=== PATIENT | female | born 2000 | race Caucasian/White ===

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

== ENCOUNTER 2022-09-09 16:07 | Observation (INO) ==
[2022-09-09 17:02] LABS: Basophils # (auto) 0.04 K/uL (0-0.2); Basophils % (auto) 0.5 %; Eosinophils # (auto) 0.22 K/uL (0-0.50); Eosinophils % (auto) 2.8 %; Hematocrit (blood only) 41.1 % (37.0-47.0); Hemoglobin 14.2 g/dl (12.0-16.0); Immature Granulocytes # (auto) 0.04 K/uL (0.01-0.20); Immature Granulocytes % (auto) 0.5 %; Lymphocytes # (auto) 2.03 K/uL (1.2-3.4); Lymphocytes % (auto) 25.8 %; Mean Corpuscular Hemoglobin 32.3 pg (25.0-34.0); Mean Corpuscular Hgb Conc 34.5 g/dL (32.0-36.0); Mean Corpuscular Volume 93.4 fL (80.0-100.0); Mean Platelet Volume 11.3 fL (9.4-12.4); Monocytes # (auto) 0.53 K/uL (0.11-0.59); Monocytes % (auto) 6.7 %; Neutrophils # (auto) 5.01 K/uL (1.40-6.50); Neutrophils % (auto) 63.7 %; Platelet Count 244 K/uL (130-400); RDW Coefficient of Variation 12.1 % (11.5-14.5); RDW Standard Deviation 41.8 fL (36.4-46.3); White Blood Count 7.87 K/ul (4.8-10.8)
--- NOTE | 2022-09-09 17:04 | Emergency Department Note ---
History of Present Illness General Chief complaint: Mental Health Evaluation Stated complaint: FEELS IN RUT,SUICIDAL Time Seen by Provider: 09/09/22 16:14 History of Present Illness Provider complaint: Mental health evaluation 22-year-old female presents emergency department for mental health evaluation. Patient reports for the last 3 days she has been having increased feelings of depressions with plans to kill herself via overdose. Patient states "I feel like I am failing as a human". Patient states she plan to overdose and attempted overdose today taking 5 tablets of Klonopin 2 mg 30 minutes prior to arrival. No other coingestions. No access to any firearms. No chance of p regnancy. No drugs or alcohol. Home Medications Medication Instructions Recorded Confirmed Type olanzapine 2.5 mg tablet (Zyprexa) 5 mg PO HS 06/17/21 10/27/21 History escitalopram oxalate 10 mg tablet 5 mg PO QAM 10/27/21 10/27/21 History trazodone 150 mg tablet 150 mg PO HS 10/27/21 10/27/21 History venlafaxine 150 mg 150 mg PO QAM 10/27/21 10/27/21 History capsule,extended release 24 hr venlafaxine 75 mg capsule,extended 75 mg PO QPM 10/27/21 10/27/21 History release 24 hr Allergies Allergy/AdvReac Type Severity Reaction Status Date / Time sertraline [From Zoloft] AdvReac Severe SI Verified 08/15/21 09:34 Past Med/Surg History Medical History Abdominal pain Depression with suicidal ideation Epistaxis Generalized pain Hematuria No significant active problems Overdose of antidepressant 2014 SI Pelvic pain Suicidal intent Surgical History No pertinent past surgical history Family History Other No pertinent family history Denies family history of Colon cancer Ovarian cancer Prostate cancer Myocardial infarction Breast cancer Social History Smoking Status: Never smoker Tobacco Type: Cigarettes and E-cigarettes / Vaping Hx Alcohol Use: No Hx Substance Use: No Preferred Language: Palestinian Visual Impairment: No Limitations Hearing Ability: Normal marital status: Single current occupational status: employed Feels Safe at Home: Yes Dental Care, Regularly: Yes Physical Activity Frequency: Does not Exercise Physical Exam Vital Signs Vital Signs - 24 hr 09/09/22 16:10 09/09/22 16:59 09/09/22 16:50 Temperature 36.9 C Temperature Source Skin Pulse Rate 57 L 49 L Respiratory Rate 20 Respiratory Effort / Characteristics Non-Labored Spontaneous Respiratory Depth Normal Blood Pressure 93/65 L Blood Pressure Mean 74 Pulse Oximetry 99 99 Oxygen Delivery Method Room Air Room Air Sepsis Recent Fever Within 48 Hours No Sepsis New/Unexplained Change in Mental Status N/A Sepsis Action Taken by Nursing No Action Required 09/09/22 16:51 09/09/22 17:00 09/09/22 17:15 Temperature Temperature Source Pulse Rate 49 L 47 L 46 L Respiratory Rate 23 19 17 Respiratory Effort / Characteristics Respiratory Depth Blood Pressure Blood Pressure Mean Pulse Oximetry Oxygen Delivery Method Sepsis Recent Fever Within 48 Hours Sepsis New/Unexplained Change in Mental Status Sepsis Action Taken by Nursing 09/09/22 17:30 09/09/22 17:45 09/09/22 18:00 Temperature Temperature Source Pulse Rate 48 L 55 L 48 L Respiratory Rate 16 22 18 Respiratory Effort / Characteristics Respiratory Depth Blood Pressure Blood Pressure Mean Pulse Oximetry Oxygen Delivery Method Sepsis Recent Fever Within 48 Hours Sepsis New/Unexplained Change in Mental Status Sepsis Action Taken by Nursing 09/09/22 18:15 09/09/22 18:30 Temperature Temperature Source Pulse Rate 54 L 48 L Respiratory Rate 18 20 Respiratory Effort / Characteristics Respiratory Depth Blood Pressure Blood Pressure Mean Pulse Oximetry Oxygen Delivery Method Sepsis Recent Fever Within 48 Hours Sepsis New/Unexplained Change in Mental Status Sepsis Action Taken by Nursing Physical Exam GENERAL: oriented to person, place, and time. appears well-developed and well- nourished. HENT: Exam performed. - Head: Normocephalic and atraumatic. EYES: Conjunctivae and EOM are normal. Right eye exhibits no discharge. Left eye exhibits no discharge. No scleral icterus. NECK: Normal range of motion. Neck supple. No JVD present. CV: bradycardic rate, regular rhythm, normal heart sounds and intact distal pulses. There is no peripheral edema. Palpable radial pulses bue. PULM/CHEST: Effort normal and breath sounds normal. No respiratory distress. No stridor. no wheezes. no rales. ABD: The abdomen is soft. There is no tenderness. NEURO: Motor and sensation grossly intact. SKIN: Skin is warm and dry. He is not diaphoretic. PSYCH: normal mood and affect. Behavior is normal. Judgment and thought content normal. Course Course 1613: The patient was evaluated in room A8. A complete history and physical exam was performed 1926: Patient medically cleared. Awaiting psychiatric placement. Patient placed in observation at this time. Case signed out to Dr. Hart Observation note Indication: Psych eval/placement Patient, with anxiety and depression was first seen at 1614 hrs and the observation time began at 1927 hrs and was necessary in order to have psych evaluation completed . Medical Decision Making Laboratory Data Attestation: I reviewed the patient's lab results. 09/09/22 16:31 09/09/22 16:31 Lab Results 09/09/22 09/09/22 09/09/22 Range/Units 16:18 16:26 16:26 WBC (4.8-10.8) K/ul RBC (4.20-5.40) M/uL Hgb (12.0-16.0) g/dl Hct (37.0-47.0) % MCV (80.0-100.0) fL MCH (25.0-34.0) pg MCHC (32.0-36.0) g/dL RDW Std Deviation (36.4-46.3) fL RDW Coeff of Luiz (11.5-14.5) % Plt Count (130-400) K/uL MPV (9.4-12.4) fL Immature Gran % (Auto) % Neut % (Auto) % Lymph % (Auto) % [place] % (Auto) % Eos % (Auto) % Baso % (Auto) % Neut # (Auto) (1.40-6.50) K/uL Lymph # (Auto) (1.2-3.4) K/uL [place] # (Auto) (0.11-0.59) K/uL Eos # (Auto) (0-0.50) K/uL Baso # (Auto) (0-0.2) K/uL Immature Gran # (Auto) (0.01-0.20) K/uL Sodium (136-145) mmol/L Potassium (3.5-5.1) mmol/L Chloride (98-107) mmol/L Carbon Dioxide (21-32) mmol/L Anion Gap (3-11) BUN (6-23) mg/dl Creatinine (0.6-1.2) mg/dl Est Cr Clr Drug Dosing ml/min Est GFR ( Amer) ml/min Est GFR (Non-Af Amer) ml/min BUN/Creatinine Ratio (10-20) Glucose (70-99(Fasting)) mg/dl Calcium (8.6-10.3) mg/dl Total Bilirubin (0.2-1.0) mg/dl AST (13-39) U/L ALT (7-52) U/L Alkaline Phosphatase (34-104) U/L Total Protein (6.0-8.3) gm/dl Albumin (3.4-5.0) gm/dl Globulin (2.5-4.0) gm/dl Albumin/Globulin Ratio (0.9-2) TSH (0.300-4.500) uIu/ml Urine Color Dark Yellow Urine Appearance Turbid A (Clear) Urine pH 6.5 (4.5-7.5) Ur Specific [place] 1.023 (1.000-1.030) Urine Protein 1+ H (Negative) Urine Glucose (UA) Negative (Negative) Urine Ketones Negative (Negative) Urine Blood 2+ H (Negative) Urine Nitrite Negative (Negative) Urine Bilirubin Negative (Negative) Urine Urobilinogen Negative (Negative) Ur Leukocyte Esterase 3+ H (Negative) Urine WBC (Auto) 10-30 H (0-5) /hpf Urine RBC (Auto) 10-30 H (0-4) /hpf U Hyaline Cast (Auto) 0 (0-5) /lpf U Epithel Cells (Auto) 10-20 H (0-5) /lpf Urine Bacteria (Auto) 2+ H (Negative) Salicylates (3.0-30) mg/dl Urine Opiates Screen Neg (Neg) Ur Methadone, Qual Neg (Neg) Acetaminophen (10-30) ug/ml Urine Barbiturates Neg (Neg) Ur Phencyclidine (PCP) Neg (Neg) U Amphetamin/Meth Scrn Neg (Neg) MDMA (Ecstasy) Screen Pos H (Neg) U Benzodiazepines Scrn Pos H (Neg) Ur Cocaine Metabolite Neg (Neg) U Marijuana (THC) Screen Pos H (Neg) Ethyl Alcohol mg/dL (<10.0) mg/dl SARS-CoV-2, RNA, NAAT NEGATIVE (NEGATIVE) 09/09/22 09/09/22 09/09/22 Range/Units 16:31 16:31 16:31 WBC 7.87 (4.8-10.8) K/ul RBC 4.40 (4.20-5.40) M/uL Hgb 14.2 (12.0-16.0) g/dl Hct 41.1 (37.0-47.0) % MCV 93.4 (80.0-100.0) fL MCH 32.3 (25.0-34.0) pg MCHC 34.5 (32.0-36.0) g/dL RDW Std Deviation 41.8 (36.4-46.3) fL RDW Coeff of Luiz 12.1 (11.5-14.5) % Plt Count 244 (130-400) K/uL MPV 11.3 (9.4-12.4) fL Immature Gran % (Auto) 0.5 % Neut % (Auto) 63.7 % Lymph % (Auto) 25.8 % [place] % (Auto) 6.7 % Eos % (Auto) 2.8 % Baso % (Auto) 0.5 % Neut # (Auto) 5.01 (1.40-6.50) K/uL Lymph # (Auto) 2.03 (1.2-3.4) K/uL [place] # (Auto) 0.53 (0.11-0.59) K/uL Eos # (Auto) 0.22 (0-0.50) K/uL Baso # (Auto) 0.04 (0-0.2) K/uL Immature Gran # (Auto) 0.04 (0.01-0.20) K/uL Sodium 138 (136-145) mmol/L Potassium 4.1 (3.5-5.1) mmol/L Chloride 104 (98-107) mmol/L Carbon Dioxide 27 (21-32) mmol/L Anion Gap 7 (3-11) BUN 11 (6-23) mg/dl Creatinine 0.73 (0.6-1.2) mg/dl Est Cr Clr Drug Dosing 106.5 ml/min Est GFR ( Amer) 133.6 ml/min Est GFR (Non-Af Amer) 115.3 ml/min BUN/Creatinine Ratio 15.1 (10-20) Glucose 80 (70-99(Fasting)) mg/dl Calcium 9.3 (8.6-10.3) mg/dl Total Bilirubin 0.3 (0.2-1.0) mg/dl AST 15 (13-39) U/L ALT 12 (7-52) U/L Alkaline Phosphatase 60 (34-104) U/L Total Protein 7.6 (6.0-8.3) gm/dl Albumin 4.7 (3.4-5.0) gm/dl Globulin 2.9 (2.5-4.0) gm/dl Albumin/Globulin Ratio 1.6 (0.9-2) TSH 2.529 (0.300-4.500) uIu/ml Urine Color Urine Appearance (Clear) Urine pH (4.5-7.5) Ur Specific [place] (1.000-1.030) Urine Protein (Negative) Urine Glucose (UA) (Negative) Urine Ketones (Negative) Urine Blood (Negative) Urine Nitrite (Negative) Urine Bilirubin (Negative) Urine Urobilinogen (Negative) Ur Leukocyte Esterase (Negative) Urine WBC (Auto) (0-5) /hpf Urine RBC (Auto) (0-4) /hpf U Hyaline Cast (Auto) (0-5) /lpf U Epithel Cells (Auto) (0-5) /lpf Urine Bacteria (Auto) (Negative) Salicylates (3.0-30) mg/dl Urine Opiates Screen (Neg) Ur Methadone, Qual (Neg) Acetaminophen (10-30) ug/ml Urine Barbiturates (Neg) Ur Phencyclidine (PCP) (Neg) U Amphetamin/Meth Scrn (Neg) MDMA (Ecstasy) Screen (Neg) U Benzodiazepines Scrn (Neg) Ur Cocaine Metabolite (Neg) U Marijuana (THC) Screen (Neg) Ethyl Alcohol mg/dL (<10.0) mg/dl SARS-CoV-2, RNA, NAAT (NEGATIVE) 09/09/22 09/09/22 Range/Units 16:31 16:31 WBC (4.8-10.8) K/ul RBC (4.20-5.40) M/uL Hgb (12.0-16.0) g/dl Hct (37.0-47.0) % MCV (80.0-100.0) fL MCH (25.0-34.0) pg MCHC (32.0-36.0) g/dL RDW Std Deviation (36.4-46.3) fL RDW Coeff of Luiz (11.5-14.5) % Plt Count (130-400) K/uL MPV (9.4-12.4) fL Immature Gran % (Auto) % Neut % (Auto) % Lymph % (Auto) % [place] % (Auto) % Eos % (Auto) % Baso % (Auto) % Neut # (Auto) (1.40-6.50) K/uL Lymph # (Auto) (1.2-3.4) K/uL [place] # (Auto) (0.11-0.59) K/uL Eos # (Auto) (0-0.50) K/uL Baso # (Auto) (0-0.2) K/uL Immature Gran # (Auto) (0.01-0.20) K/uL Sodium (136-145) mmol/L Potassium (3.5-5.1) mmol/L Chloride (98-107) mmol/L Carbon Dioxide (21-32) mmol/L Anion Gap (3-11) BUN (6-23) mg/dl Creatinine (0.6-1.2) mg/dl Est Cr Clr Drug Dosing ml/min Est GFR ( Amer) ml/min Est GFR (Non-Af Amer) ml/min BUN/Creatinine Ratio (10-20) Glucose (70-99(Fasting)) mg/dl Calcium (8.6-10.3) mg/dl Total Bilirubin (0.2-1.0) mg/dl AST (13-39) U/L ALT (7-52) U/L Alkaline Phosphatase (34-104) U/L Total Protein (6.0-8.3) gm/dl Albumin (3.4-5.0) gm/dl Globulin (2.5-4.0) gm/dl Albumin/Globulin Ratio (0.9-2) TSH (0.300-4.500) uIu/ml Urine Color Urine Appearance (Clear) Urine pH (4.5-7.5) Ur Specific [place] (1.000-1.030) Urine Protein (Negative) Urine Glucose (UA) (Negative) Urine Ketones (Negative) Urine Blood (Negative) Urine Nitrite (Negative) Urine Bilirubin (Negative) Urine Urobilinogen (Negative) Ur Leukocyte Esterase (Negative) Urine WBC (Auto) (0-5) /hpf Urine RBC (Auto) (0-4) /hpf U Hyaline Cast (Auto) (0-5) /lpf U Epithel Cells (Auto) (0-5) /lpf Urine Bacteria (Auto) (Negative) Salicylates < 3.0 L (3.0-30) mg/dl Urine Opiates Screen (Neg) Ur Methadone, Qual (Neg) Acetaminophen < 3 L (10-30) ug/ml Urine Barbiturates (Neg) Ur Phencyclidine (PCP) (Neg) U Amphetamin/Meth Scrn (Neg) MDMA (Ecstasy) Screen (Neg) U Benzodiazepines Scrn (Neg) Ur Cocaine Metabolite (Neg) U Marijuana (THC) Screen (Neg) Ethyl Alcohol mg/dL < 10.0 (<10.0) mg/dl SARS-CoV-2, RNA, NAAT (NEGATIVE) [facility] Narrative 1614: The patient was evaluated in room A8. A complete history and physical exam was performed 1927: Patient medically cleared. Awaiting psychiatric placement. Patient placed in observation at this time. Case signed out to Dr. Hart Observation note Indication: Psych eval/placement Patient, with anxiety and depression was first seen at 1614 hrs and the observation time began at 1927 hrs and was necessary in order to have psych evaluation completed . Impression & Plan Intentional benzodiazepine overdose, Depression with suicidal ideation Discharge Plan Visit Data Chief Complaint: Mental Health Evaluation Stated Complaint: FEELS IN RUT,SUICIDAL ED Provider: Deniz Hart Discharge Problem: Intentional benzodiazepine overdose, Depression with suicidal ideation Patient Disposition: Still a Patient Forms Stand Alone Forms: My [facility], Suicide Prevention Resources Prescriptions Prescriptions: No Action olanzapine [Zyprexa] 2.5 mg tablet 5 mg PO HS escitalopram oxalate 10 mg tablet 5 mg PO QAM trazodone 150 mg tablet 150 mg PO HS venlafaxine 150 mg capsule,extended release 24hr 150 mg PO QAM venlafaxine 75 mg capsule,extended release 24hr 75 mg PO QPM Referrals Referrals: PCP,NO [Primary Care Provider] -
[2022-09-09 17:09] LABS: Appearance Urine Turbid (Clear); Bilirubin Urine Negative (Negative); Blood Urine 2+ (Negative); Color Urine Dark Yellow; Glucose Urine UA Negative (Negative); Ketones Urine Negative (Negative); Leukocyte Esterase Urine 3+ (Negative); Nitrite Urine Negative (Negative); Protein Urine 1+ (Negative); Specific Gravity Urine 1.023 (1.000-1.030); Urobilinogen Urine Negative (Negative); pH Urine 6.5 (4.5-7.5)
[2022-09-09 17:25] LABS: Acetaminophen < 3 ug/ml (10-30); Salicylate < 3.0 mg/dl (3.0-30)
[2022-09-09 17:29] LABS: Bacteria Urine Automated 2+ (Negative); Cast Urine Automated 0 /lpf (0-5)
[2022-09-09 17:30] LABS: Albumin Globulin Ratio 1.6 (0.9-2); Albumin Level 4.7 gm/dl (3.4-5.0); BUN Creatinine Ratio 15.1 (10-20); Bilirubin,Total 0.3 mg/dl (0.2-1.0); Calcium 9.3 mg/dl (8.6-10.3); Creatinine Clr Calc Pharmacy 106.5 ml/min; Est GFR (African American) 133.6 ml/min; Est GFR (Non-African American) 115.3 ml/min; Globulin 2.9 gm/dl (2.5-4.0); Potassium 4.1 mmol/L (3.5-5.1); Total Protein 7.6 gm/dl (6.0-8.3)
[2022-09-09 17:54] LABS: Amphetamines+Metham, Urine Neg (Neg); Barbiturates, Urine Neg (Neg); Benzodiazepine, Urine Pos (Neg); Cocaine, Urine Neg (Neg); MDMA (Ecstacy), Urine Pos (Neg); Methadone, Urine Neg (Neg); Opiate, Urine Neg (Neg); Phencyclidine, Urine Neg (Neg)
[2022-09-09 19:55] LABS: Pregnancy Test, Urine Negative (Negative)
[2022-09-09] MEDS ORDERED: SODIUM CHLORIDE 0.9% 1000ML 1,000 ML IV ONE ×2 (20:39→23:40)
--- NOTE | 2022-09-09 22:31 | Emergency Department Note ---
ED Visit Note Patient was received in signout to me by Dr. Hernandez, patient is pending psychiatric placement for suicide attempt/benzodiazepine overdose. While here in the ED under my care the patient remained somewhat hypotensive, at one point into the 70s systolic, she was given an IV fluid bolus, on my assessment the patient is alert, appears otherwise to be asymptomatic. Despite IV fluid bolus patient did remain hypotensive in the 80s, psychiatry prefers medical admission with psychiatric consultation. [facility] for [facility]. Patient's lab work of note does not show any leukocytosis, she is afebrile here, has had some bradycardia. I suspect this is likely a result of side effects from benzodiazepine overdose, low suspicion for sepsis. Disposition: Admission Diagnosis: Benzodiazepine overdose, suicidal thoughts, hypotension Deniz Hart, DO Emergency Medicine .
--- NOTE | 2022-09-09 23:52 | History & Physical Report ---
Date of Service September 09, 2022 Assessment & Plan (1) Intentional benzodiazepine overdose: Plan: 22 yo female with PMHx of depression with suicidal ideation and anxiety presented with overdose and suicide attempt. #Intentional benzo overdose #H/o depression with suicidal ideation #H/o anxiety -3 days of having increased feelings of depressions with plans to kill herself via overdose.Attempted overdose today taking 5 tablets of Klonopin 2 mg 30 minutes prior to arrival. -No leukocytosis. Electrolytes normal. test neg. Afebrile. Hypotensive as below. -EKG with sinus oksana, QTC wnl. Will monitor on tele. -UDS: +benzo, +MDMA (possible cross reaction with other home meds?), +marijuana -case was discussed with psych; they will be consulted since patient needs to be on medical floor due to hypotension below -safe tray diet, suicide precautions, 1:1 observation -hold all home meds for now #Hypotension -presented hypotensive with systolic as low as 70s; likely due to overdose and dehydration as above. -received 1L NSS bolus in ED with appropriate rise into 80s. Baseline >100 systolically. -will administer additional 1L bolus and maintenance there after -cont. to monitor DVT ppx: SCDs, ambulation FEN/GI: safe tray Code Status: full Dispo: med tele, obs (2) Depression with suicidal ideation: (3) Anxiety: (4) Hypotension: History of Present Illness Chief Complaint: overdose Primary Care Provider: NO PCP 22 yo female with PMHx of depression with suicidal ideation and anxiety pr esented with overdose and suicide attempt. Per ED note, "patient reports for the last 3 days she has been having increased feelings of depressions with plans to kill herself via overdose. Patient states "I feel like I am failing as a human".Patient states she planned to overdose and attempted overdose today taking 5 tablets of Klonopin 2 mg 30 minutes prior to arrival. No other co- ingestions. No access to any firearms. No chance of . No drugs or alcohol." Patient sleeping comfortably when seen by myself so no ROS obtained, however, she mentioned previously she was asymptomatic. Patient arrived hypotensive, at one point in the 70s systolic, and was given 1L bolus NSS with appropriate rise. Allergies Allergy/AdvReac Type Severity Reaction Status Date / Time sertraline [From Zoloft] AdvReac Severe SI Verified 03/04/22 09:34 Home Medications Medication Instructions Recorded Confirmed Type aripiprazole 10 mg tablet 10 mg QPM 09/09/22 09/09/22 History benztropine 0.5 mg tablet 0.5 mg BID 09/09/22 09/09/22 History buspirone 30 mg tablet 30 mg BID 09/09/22 09/09/22 History clonazepam 1 mg tablet 1 mg BID 09/09/22 09/09/22 History divalproex 250 mg tablet,delayed 250 mg PO BID 09/09/22 09/09/22 History release naltrexone microspheres 380 mg 380 mg IM MONTHLY 09/09/22 09/09/22 History intramuscular suspension,extended release (Vivitrol) prazosin 2 mg capsule 4 mg HS 09/09/22 09/09/22 History propranolol 10 mg tablet 10 mg ONCE 09/09/22 09/09/22 History sertraline 100 mg tablet 100 mg BID 09/09/22 09/09/22 History phenazopyridine 200 mg tablet 200 mg PO TID PRN pain 2 days #6 09/10/22 Rx (Pyridium) tabs sulfamethoxazole 800 1 tab PO Q12 3 days #6 tabs 09/10/22 Rx mg-trimethoprim 160 mg tablet (Bactrim DS) Past Med/Surg History Medical History Abdominal pain Depression with suicidal ideation Epistaxis Generalized pain Hematuria No significant active problems Overdose of antidepressant 2014 SI Pelvic pain Suicidal intent Surgical History No pertinent past surgical history Family History Other No pertinent family history Denies family history of Colon cancer Ovarian cancer Prostate cancer Myocardial infarction Breast cancer Social History Smoking Status: Never smoker Tobacco Type: Cigarettes and E-cigarettes / Vaping Hx Alcohol Use: Yes Alcohol type: other Hx Substance Use: No Preferred Language: Romansh Communication Ability: Effective Visual Impairment: No Limitations Hearing Ability: Normal [employer] Required: No Beliefs That Will Affect Care: None marital status: Single Current Living Situation: Family current occupational status: employed Feels Safe at Home: Yes Dental Care, Regularly: Yes Physical Activity Frequency: Does not Exercise Gender Identity: Female Assistive Devices: None Review of Systems Review of Systems: All systems reviewed & are unremarkable except as noted in HPI & below Physical Exam Physical Exam: Constitutional: in no acute distress. Sleeping comfortably. Vitals as above. HEENT: Moist mucous membranes. Neck: Supple without lymphadenopathy or thyromegaly. Trachea midline. Lungs: Clear to auscultation bilaterally with good effort. Normal work of breathing. Cardiac: Regular rate and rhythm. No murmurs. No extremity edema. 2+ peripheral distal pulses Abdomen: Bowel sounds present. Soft, nontender, and nondistended. MSK: No cyanosis or clubbing. Skin: No rashes, warm, dry. Neurologic: not assessed due to pt sleeping Results & Data Results & Data Vital Signs (Past 12 Hours) Vital Signs Temp Pulse Pulse Resp BP BP Pulse Ox 09/09/22 22:19 45 L 20 87/42 L 96 09/09/22 21:23 65 22 92/58 L 96 09/09/22 21:07 57 L 09/09/22 20:47 54 L 20 81/45 L 96 09/09/22 18:30 48 L 20 09/09/22 18:15 54 L 18 09/09/22 18:00 48 L 18 09/09/22 17:45 55 L 22 09/09/22 17:30 48 L 16 09/09/22 17:15 46 L 17 09/09/22 17:00 47 L 19 09/09/22 16:51 49 L 23 09/09/22 16:50 49 L 09/09/22 16:59 99 09/09/22 16:10 36.9 C 57 L 20 93/65 L 99 O2 Del Method 09/09/22 22:19 Room Air 09/09/22 21:23 Room Air 09/09/22 21:07 09/09/22 20:47 Room Air 09/09/22 18:30 09/09/22 18:15 09/09/22 18:00 09/09/22 17:45 09/09/22 17:30 09/09/22 17:15 09/09/22 17:00 09/09/22 16:51 09/09/22 16:50 09/09/22 16:59 Room Air 09/09/22 16:10 Room Air Laboratory Results Laboratory Results WBC 7.87 K/ul (4.8-10.8) 09/09/22 16: RBC 4.40 M/uL (4.20-5.40) 09/09/22 16:31 Hgb 14.2 g/dl (12.0-16.0) 09/09/22 16: Hct 41.1 % (37.0-47.0) 09/09/22 16: MCV 93.4 fL (80.0-100.0) 09/09/22 16: MCH 32.3 pg (25.0-34.0) 09/09/22 16: MCHC 34.5 g/dL (32.0-36.0) 09/09/22 16: RDW Std Deviation 41.8 fL (36.4-46.3) 09/09/22 16: RDW Coeff of Luiz 12.1 % (11.5-14.5) 09/09/22 16: Plt Count 244 K/uL (130-400) 09/09/22 16: MPV 11.3 fL (9.4-12.4) 09/09/22 16: Immature Gran % (Auto) 0.5 % 09/09/22 16: Neut % (Auto) 63.7 % 09/09/22 16:31 Lymph % (Auto) 25.8 % 09/09/22 16:31 [place] % (Auto) 6.7 % 09/09/22 16:31 Eos % (Auto) 2.8 % 09/09/22 16:31 Baso % (Auto) 0.5 % 09/09/22 16:31 Neut # (Auto) 5.01 K/uL (1.40-6.50) 09/09/22 16:31 Lymph # (Auto) 2.03 K/uL (1.2-3.4) 09/09/22 16:31 [place] # (Auto) 0.53 K/uL (0.11-0.59) 09/09/22 16:31 Eos # (Auto) 0.22 K/uL (0-0.50) 09/09/22 16: Baso # (Auto) 0.04 K/uL (0-0.2) 09/09/22 16:31 Immature Gran # (Auto) 0.04 K/uL (0.01-0.20) 09/09/22 16:31 Sodium 138 mmol/L (136-145) 09/09/22 16:31 Potassium 4.1 mmol/L (3.5-5.1) 09/09/22 16:31 Chloride 104 mmol/L (98-107) 09/09/22 16:31 Carbon Dioxide 27 mmol/L (21-32) 09/09/22 16:31 Anion Gap 7 (3-11) 09/09/22 16:31 BUN 11 mg/dl (6-23) 09/09/22 16:31 Creatinine 0.73 mg/dl (0.6-1.2) 09/09/22 16:31 Est Cr Clr Drug Dosing 106.5 ml/min 09/09/22 16:31 Est GFR ( Amer) 133.6 ml/min 09/09/22 16:31 Est GFR (Non-Af Amer) 115.3 ml/min 09/09/22 16:31 BUN/Creatinine Ratio 15.1 (10-20) 09/09/22 16:31 Glucose 80 mg/dl (70-99(Fasting)) 09/09/22 16:31 Calcium 9.3 mg/dl (8.6-10.3) 09/09/22 16:31 Total Bilirubin 0.3 mg/dl (0.2-1.0) 09/09/22 16:31 AST 15 U/L (13-39) 09/09/22 16:31 ALT 12 U/L (7-52) 09/09/22 16:31 Alkaline Phosphatase 60 U/L (34-104) 09/09/22 16:31 Total Protein 7.6 gm/dl (6.0-8.3) 09/09/22 16:31 Albumin 4.7 gm/dl (3.4-5.0) 09/09/22 16:31 Globulin 2.9 gm/dl (2.5-4.0) 09/09/22 16:31 Albumin/Globulin Ratio 1.6 (0.9-2) 09/09/22 16:31 TSH 2.529 uIu/ml (0.300-4.500) 09/09/22 16:31 Urine Color Dark Yellow 09/09/22 16:26 Urine Appearance Turbid (Clear) A 09/09/22 16:26 Urine pH 6.5 (4.5-7.5) 09/09/22 16:26 Ur Specific [place] 1.023 (1.000-1.030) 09/09/22 16:26 Urine Protein 1+ (Negative) H 09/09/22 16:26 Urine Glucose (UA) Negative (Negative) 09/09/22 16:26 Urine Ketones Negative (Negative) 09/09/22 16:26 Urine Blood 2+ (Negative) H 09/09/22 16:26 Urine Nitrite Negative (Negative) 09/09/22 16:26 Urine Bilirubin Negative (Negative) 09/09/22 16:26 Urine Urobilinogen Negative (Negative) 09/09/22 16:26 Ur Leukocyte Esterase 3+ (Negative) H 09/09/22 16:26 Urine WBC (Auto) 10-30 /hpf (0-5) H 09/09/22 16:26 Urine RBC (Auto) 10-30 /hpf (0-4) H 09/09/22 16:26 U Hyaline Cast (Auto) 0 /lpf (0-5) 09/09/22 16:26 U Epithel Cells (Auto) 10-20 /lpf (0-5) H 09/09/22 16:26 Urine Bacteria (Auto) 2+ (Negative) H 09/09/22 16:26 Urine Test Negative (Negative) 09/09/22 16:26 Salicylates < 3.0 mg/dl (3.0-30) L 09/09/22 16:31 Urine Opiates Screen Neg (Neg) 09/09/22 16:26 Ur Methadone, Qual Neg (Neg) 09/09/22 16:26 Acetaminophen < 3 ug/ml (10-30) L 09/09/22 16:31 Urine Barbiturates Neg (Neg) 09/09/22 16:26 Ur Phencyclidine (PCP) Neg (Neg) 09/09/22 16:26 U Amphetamin/Meth Scrn Neg (Neg) 09/09/22 16:26 MDMA (Ecstasy) Screen Pos (Neg) H 09/09/22 16:26 U Benzodiazepines Scrn Pos (Neg) H 09/09/22 16:26 Ur Cocaine Metabolite Neg (Neg) 09/09/22 16:26 U Marijuana (THC) Screen Pos (Neg) H 09/09/22 16:26 Ethyl Alcohol mg/dL < 10.0 mg/dl (<10.0) 09/09/22 16:31 SARS-CoV-2, RNA, NAAT NEGATIVE (NEGATIVE) 09/09/22 16:18 Code Status & VTE Plan VTE Prophylaxis Plan VTE Prophylaxis will be ordered: Yes Reason for no VTE drug order: Treatment not indicated Supervising Physician Co-Signing Physician Notes Attending addendum: I have physically seen this patient, have supervised the medical residents activities, and agree with the H&P unless as otherwise noted. Assessment and Plan: Intentional benzodiazepine overdose- Urine drug screen positive for ecstasy, benzodiazepines and marijuana History of depression with suicidal ideation History of anxiety Patient will be admitted with suicide precautions One-to-one observation Consult psychiatry Hold all home medications until seen by psychiatry Relative hypotension- Asymptomatic Given 1 L normal saline in the ED Recommended 2 additional liter bolus and then maintenance fluids Remaining orders and notations as noted Resident Activity Tracking Resident Involvement: Resident Care Provided Care Provided: Adult Hospital Medicine
[2022-09-10] MEDS: SODIUM CHLORIDE 0.9% 1000ML 1,000 ML IV SCH ×2 (02:00→15:14)
--- NOTE | 2022-09-10 08:25 | Hospitalist Progress Note ---
Date of Service September 10, 2022 Assessment & Plan (1) Intentional benzodiazepine overdose: Plan: 22 yo female with PMHx of depression with suicidal ideation and anxiety presented with overdose and suicide attempt. (1) Intentional benzo overdose, H/o depression with suicidal ideation, H/o anxiety -3 days of having increased feelings of depressions with plans to kill herself via overdose.Attempted overdose taking 5 tablets of Klonopin 2 mg 30 minutes prior to arrival. Had called therapist who advised her to go to ER -No leukocytosis. Electrolytes normal. test neg. Afebrile. Hypotensive as below. -EKG with sinus oksana, QTC wnl. Will monitor on tele. -UDS: +benzo, +MDMA (possible cross reaction with other home meds?), +marijuana -case was discussed with psych; they will be consulted since patient needs to be on medical floor due to hypotension below -safe tray diet, suicide precautions, 1:1 observation -hold all home meds for now (2) Hypotension -presented hypotensive with systolic as low as 70s; likely due to overdose and dehydration as above. -received 1L NSS bolus in ED with appropriate rise into 80s. Baseline >100 systolically. -will administer additional 1L bolus and maintenance there after -cont. to monitor (3) Bradycardia -likely 2/2 to overdose benzo -patient not complaining of lightheadedness dizziness at this time -continue to monitor (4) UTI -UA +, Ucx pending -started on Bactrim DS BID for 3 days and PRN pyridium DVT ppx: SCDs, ambulation FEN/GI: safe tray Code Status: full Dispo: med tele, obs (2) Depression with suicidal ideation: (3) Anxiety: (4) Hypotension: Admission and Anticipated Discharge Date Admission Date: September 09, 2022 Supervising Physician Co-Signing Physician Notes I personally examined the patient and verified all franco points of history and exam, discussed case, and agree with decision making with Dr Bourne no weakness/lightheadedness. nursing notes no trouble. has been sleeping much of the day. vitals noted nad heent nc at mmm breathing unlabored no accessory muscles good effort skin no rashes no pallor or icterus depression/anxiety/SI/overdose - fortunately doing well medically. strongly suspect (given asymptomatic) that HR and BP at this point are a function of her age and the fact that she has been resting/asleep. appearing medically [facility]. otherwise as above Subjective Patient seen at bedside, states she is urinating very frequently pain with urination notably bloody urine started recently. Otherwise states she was feeling mentally worse than normal recently, she took 5 2mg tablets of clonazepam, called her therapist within half an hour who told her to go to the ED, she has a good relationship with her therapist. Physical Exam Constitutional: WD/WN, vitals as above Eyes: PERRL, conjunctivae normal, anicteric sclerae ENMT: external ear and nose normal, oropharynx normal Neck: trachea midline, no thyromegaly Respiratory: normal respiratory effort, lungs clear to auscultation Cardiovascular: RRR, no murmur, no edema Gastrointestinal (Abdomen): Inspection/Auscultation: abdomen normal to inspection Percussion/Palpation: abdomen soft; abdomen nontender Musculoskeletal: no cyanosis or clubbing, extremities motor strength 5/5 Skin: no rashes, warm and dry Neurologic: CN's II-XI intact bilaterally Results & Data Results & Data Vital Signs (Past 12 Hours) Vital Signs Temp Pulse Pulse Resp BP BP Pulse Ox 09/10/22 07:30 47 L 15 96 09/10/22 07:00 43 L 15 97 09/10/22 07:00 89/50 L 09/10/22 06:30 46 L 14 97 09/10/22 07:34 36.8 C 44 L 16 90/60 L 98 09/10/22 06:00 47 L 21 98 09/10/22 06:00 102/53 L 09/10/22 05:56 46 L 14 100 09/10/22 05:56 90/54 L 09/10/22 05:37 82/47 L 09/10/22 05:37 47 L 20 09/10/22 05:00 44 L 14 99 09/10/22 05:00 50 L 80/46 L 09/10/22 04:00 47 L 15 09/10/22 03:00 45 L 14 09/10/22 03:00 93/61 L 09/10/22 02:00 49 L 16 99 09/10/22 04:01 09/10/22 02:00 49 L 14 86/58 L 96 09/10/22 01:05 46 L 09/10/22 01:01 56 L 16 89/37 L 96 09/09/22 23:46 52 L 13 84/45 L 96 09/09/22 22:19 45 L 20 87/42 L 96 09/09/22 21:23 65 22 92/58 L 96 09/09/22 21:07 57 L 09/09/22 20:47 54 L 20 81/45 L 96 O2 Del Method 09/10/22 07:30 09/10/22 07:00 09/10/22 07:00 09/10/22 06:30 09/10/22 07:34 Room Air 09/10/22 06:00 09/10/22 06:00 09/10/22 05:56 09/10/22 05:56 09/10/22 05:37 09/10/22 05:37 09/10/22 05:00 09/10/22 05:00 09/10/22 04:00 09/10/22 03:00 09/10/22 03:00 09/10/22 02:00 09/10/22 04:01 Room Air 09/10/22 02:00 Room Air 09/10/22 01:05 09/10/22 01:01 Room Air 09/09/22 23:46 Room Air 09/09/22 22:19 Room Air 09/09/22 21:23 Room Air 09/09/22 21:07 09/09/22 20:47 Room Air Resident Activity Tracking Resident Involvement: Resident Care Provided Care Provided: Adult Hospital Medicine
[2022-09-10] MEDS ORDERED: PHENAZOPYRIDINE HCL 200 MG TAB PO PRN (08:50)
[2022-09-10] MEDS: SULFAMETHOXAZOLE/TRIMETHOPRIM DS 800/160MG TAB PO SCH ×2 (09:31→20:12)
--- NOTE | 2022-09-10 18:26 | Psychiatric Consultation ---
Date of Consultation September 10, 2022 Impression / Recommendations Impression 22 y/o F with history of major depression who present with suicidal thoughts. I note that her Allergies list includes sertraline, reported as precipitating suicidal thoughts, yet she has been taking 200 mg/day at home. (1) Major depressive disorder, recurrent severe without psychotic features: (2) Alcohol use disorder, severe, in early remission, dependence: Plan * continue aripiprazole 10 mg QHS * continue clonazepam 1 mg BID (though this could substantially increase alcohol relapse risk) * continue divalproex 250 mg BID * valproic acid level in AM before AM divalproex dose * hold prazosin for now * reduce sertraline 100 mg daily * start venlafaxine XR 75 mg daily * intend to admit to psychiatry once no longer bradycardic and hypotensive Psych History Identifying Data DARLENE PYLE is a 22-year-old F with a history of major depression and alcohol dependence in remission, admitted on 09/09/2022 for suicidal thoughts. Consult is by the hospitalist service for recommendations. Chief Complaint "I don't feel very happy". History of Present Illness As part of my review of the medical record, I read the following notes by the ED psychiatric immigration case worker: "Met with the patient during Dr. Nevarez examination to complete Brief and Suicide Risk Assessments. Patient reports suicidal ideation with a plan to overdose which has been going on for a pretty long time, worse over the past 3 days. The patient reports she feels she is failing as a human and hasnt been going to work, which makes her depression worse. The patient admits to taking 5 2mg Klonopin tablets before coming to the ER and admits to marijuana use. The patient reports she is voluntary for treatment at this time and medical clearance was explained. 302 petitioning statement received prior to patients arrival from Taryn Fishman LPC at [facility] and reads: Darlene reported in session she was actively suicidal and reported thoughts of cutting herself or taking all of her medication. She reported not feeling safe by herself." "The patient continues to express suicidal ideation with a plan to overdose but denies the medications she took prior to arrival was an attempt to harm herself. 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 She reports depressive symptoms of anergia, anhedonia, decreased concentration and increase crying. The patient reports her appetite has decreased (poor appetite) and reports she has problems staying asleep (getting 7-8 hours per night of broken sleep). The patient reports her anxiety (currently a 3) is always there, but goes up and down with symptoms of leg numbness, hot flashes and shortness of breath. The patient reports having auditory hallucinations at times of voices mumbling but denies other hallucinations or paranoid / delusional thinking. The patient reports a history of cutting and burning herself with last SIB be around 2 months ago. The patient denies homicidal ideation and access to weapons. Patient is willing for treatment at this time." and this note by the psychiatric liaison nurse: "Initial assessment around 2200 prior to medical admission: Met with patient originally for referral to [facility] but patient was later admitted medically for hypotension and consulted. Patient presented to ED suicidal with a plan to overdose or cut herself. She did endorse taking 5 2mg Klonopin tablets prior to coming to the hospital. She states that her SI has worsened over the past 3 days and she had a meeting with her therapist, Taryn at [facility] who ended up petitioning for a 302. She states her stressors are that she feels she is "failing as a human." She has not be attending work and states she is dealing with drama with coworkers. She is currently living with her grandparents and states she has been feeling lonely. She has a prior suicide attempt in 2012 via OD and prior SIB via cutting and burning, last being about two months ago. She reports previous hospitalizations, most recently being at [facility] for alcohol abuse treatment, she was there for 10 months and was just discharged 2 months ago. She reports that she has been able to maintain her sobriety after discharge. She also reports being at the [facility] twice last year. Her current outpatient providers are Redd from [place] for psychiatry, Taryn at [facility] for therapy. Her current medications include Abilify, Cogentin, Buspar, Klonopin, Depakote, Vivitrol, Prazosin, Propranolol, and Zoloft. At the time of assessment, patient was willing for inpatient treatment." She had a somewhat similar presentation in October 2021 following which she was admitted to [facility]. She had a 10-month stay at an alcohol-use disorders program from which she was discharged 2 months ago. She says she's remained abstinent since. Reports depressed mood, feeling isolated, lack of motivation or interest, anhedonia, diminished appetite. She has felt hopeless and decided to kill herself by taking 10 mg of clonazepam. She denies having taken anything else, including propranolol. She has been hypotensive and bradycardic with no clear etiology. Past Psychiatric History Current Psychiatric Diagnosis: MDD History of Previous Suicide Attempt: Yes Allergies Allergy/AdvReac Type Severity Reaction Status Date / Time sertraline [From Zoloft] AdvReac Severe SI Verified 08/15/21 09:34 Home Medications Medication Instructions Recorded Confirmed Type aripiprazole 10 mg tablet 10 mg QPM 09/09/22 09/09/22 History benztropine 0.5 mg tablet 0.5 mg BID 09/09/22 09/09/22 History buspirone 30 mg tablet 30 mg BID 09/09/22 09/09/22 History clonazepam 1 mg tablet 1 mg BID 09/09/22 09/09/22 History divalproex 250 mg tablet,delayed 250 mg PO BID 09/09/22 09/09/22 History release naltrexone microspheres 380 mg 380 mg IM MONTHLY 09/09/22 09/09/22 History intramuscular suspension,extended release (Vivitrol) prazosin 2 mg capsule 4 mg HS 09/09/22 09/09/22 History propranolol 10 mg tablet 10 mg ONCE 09/09/22 09/09/22 History sertraline 100 mg tablet 100 mg BID 09/09/22 09/09/22 History phenazopyridine 200 mg tablet 200 mg PO TID PRN pain 2 days #6 09/10/22 Rx (Pyridium) tabs sulfamethoxazole 800 1 tab PO Q12 3 days #6 tabs 09/10/22 Rx mg-trimethoprim 160 mg tablet (Bactrim DS) Patient History Medical History Abdominal pain Depression with suicidal ideation Epistaxis Generalized pain Hematuria No significant active problems Overdose of antidepressant 2014 SI Pelvic pain Suicidal intent Surgical History No pertinent past surgical history Family History Other No pertinent family history Denies family history of Colon cancer Ovarian cancer Prostate cancer Myocardial infarction Breast cancer Social History Smoking Status: Never smoker Tobacco Type: Cigarettes and E-cigarettes / Vaping Hx Alcohol Use: Yes Alcohol type: other Hx Substance Use: No Preferred Language: Icelandic Communication Ability: Effective Visual Impairment: No Limitations Hearing Ability: Normal Educational Interpreter Required: No Beliefs That Will Affect Care: None marital status: Single Current Living Situation: Family current occupational status: employed Feels Safe at Home: Yes Dental Care, Regularly: Yes Physical Activity Frequency: Does not Exercise Gender Identity: Female Assistive Devices: None Physical Exam Psychiatric: Orientation: alert, oriented to person, oriented to place, oriented to time and + guarded Apperance: appropriately dressed and appropri ately groomed Eye Contact: + fair eye contact Motor Behavior: no abnormal motor movements very slow, quiet, and brief Affect: + constricted affect Mood: + depressed mood and + anxious mood Thought Process: + concrete thought process Thought Content: + cognitive distortions, + hopelessness, + loneliness and + self deprecation; no delusions Suicidal Thoughts: denies suicidal plan and denies suicidal intent; + reports suicidal thoughts Homicidal Thoughts: denies homicidal thoughts Hallucinations: no auditory hallucinations and no visual hallucinations Cognition: recent memory grossly intact, remote memory grossly intact and language grossly intact; + attention not intact Estimated Intelligence: average estimated intelligence Insight: + limited insight Judgment: + limited judgement Vital Signs (Past 24 Hours): Last Vital Signs Temp 36.8 C 09/10/22 07:34 Pulse 44 L 09/10/22 17:00 Resp 18 09/10/22 17:00 BP 85/42 L 09/10/22 17:00 Pulse Ox 100 09/10/22 17:00 O2 Del Method Room Air 09/10/22 17:00 Review of Systems Psychiatric: + depression, + hopelessness, + anhedonia, + abnormal sleep pattern, + change in appetite, + anxiety and + difficulty concentrating; no hallucinations Results & Data (PSY) Medications Administered Sodium Chloride (Nss 1000ml) 1,000 mls @ 100 mls/hr IV .Q10H ELIZABETH Stop: 10/10/22 01:24 Last Admin: 09/10/22 15:14 Dose: 100 mls/hr Documented By: Infusion: 09/10/22 12:00 Dose: 100 mls/hr Documented By: Admin: 09/10/22 02:00 Dose: 100 mls/hr Documented By: CARMEN Phenazopyridine HCl (Phenazopyridine Hcl 200 Mg Tab) 200 mg PO TID PRN PRN Reason: urinary discomfort Stop: 09/12/22 08:49 Last Admin: 09/10/22 09:31 Dose: 200 mg Documented By: AILYN Trimethoprim/Sulfamethoxazole (Sulfamethoxazole/Trimethoprim Ds 800/160mg Tab) 1 tab PO Q12 ELIZABETH Stop: 09/13/22 08:59 Last Admin: 09/10/22 09:31 Dose: 1 tab Documented By: AILYN Coding Level of Care Code 60750 IN/OBS CONSULT LVL 4,60M Diagnoses Major depressive disorder, recurrent severe without psychotic features F33.2 Alcohol use disorder, severe, in early remission, dependence F10.21 Time Spent (min) 75
--- NOTE | 2022-09-10 18:51 | Billing Data ---
Date of Service September 10, 2022 Coding Level of Care Code 80201 SUB INP/OBS CARE MIN
[2022-09-10] MEDS ORDERED: LACTATED RINGER'S 1,000 ML IV ONE (19:29)
[2022-09-10] MEDS ORDERED: ARIPiprazole 10 MG TAB PO SCH (21:00)
--- NOTE | 2022-09-10 21:28 | Billing Data ---
Date of Service September 10, 2022 Coding Level of Care Code 76114 INT INP/OBS CARE
[2022-09-10] MEDS: clonazePAM 1 MG TAB PO SCH (21:49)
[2022-09-10] MEDS: DIVALPROEX DELAY RELEASE 250 MG TABEC PO SCH (21:50)
--- NOTE | 2022-09-10 21:55 | Electrocardiogram Report ---
Test Reason : Blood Pressure : / mmHG Vent. Rate : 045 BPM Atrial Rate : 045 BPM P-R Int : 130 ms QRS Dur : 082 ms QT Int : 454 ms P-R-T Axes : 040 046 055 degrees QTc Int : 392 ms Sinus bradycardia Otherwise normal ECG When compared with ECG of 09-MAR-2019 17:11, No significant change was found Confirmed by William Kahn ([id number]) on 09/10/2022 9:55:15 PM Referred By: REFERRED SELF Confirmed By:William Kahn
[2022-09-11] MEDS: SODIUM CHLORIDE 0.9% 1000ML 1,000 ML IV SCH ×2 (06:23→07:56)
[2022-09-11] MEDS ORDERED: LACTATED RINGER'S 1,000 ML IV ONE (07:43)
--- NOTE | 2022-09-11 07:44 | Hospitalist Progress Note ---
Date of Service September 11, 2022 Assessment & Plan (1) Intentional benzodiazepine overdose: Plan: 22 yo female with a history of depression, suicidal ideation, and history of prior inpatient psychiatric stay presents after a suicide attempt via intentional benzodiazepine overdose. Intentional benzodiazepine overdose, bradycardia, hypotension Patient ingested ~10mg klonopin on 09/09/22 Vitals on admission notable for hypotension and bradycardia suspected secondary to benzodiazepine overdose; patient afebrile, spO2 adequate on room air No leukocytosis, electrolytes wnl, b-hCG negative EKG: sinus bradycardia without QTc prolongation UDS positive for benzodiazepines, cannabis, and MDMA; MDMA likely a false positive Continue conservative management; plan to transfer patient to inpatient behavioral unit once BP and HR stabilize Suicide attempt, history of major depression Patient reports a history of SI and a history of inpatient psychiatric stay Patient will go to inpatient behavioral unit once medically stable Continue home abilify, klonopin, depakote, sertraline, venlafaxine Suicide precautions, safe tray, continue 1:1 UTI UA on admission grossly infected Continue bactrim (three-day course, final dose 09/12/22) FEN: regular diet Code status: full code DVT ppx: SCDs Consults: psychiatry PT/OT: not indicated Case management: following Dispo: med/telemetry; plan to transfer patient to inpatient behavioral unit once vitals stabilize (2) Depression with suicidal ideation: (3) Anxiety: (4) Hypotension: Admission and Anticipated Discharge Date Admission Date: September 09, 2022 Subjective Patient seen and evaluated at bedside this morning. Patient complains of feeling excessively tired but is otherwise asymptomatic. Patient denies CP, SOB, abdominal pain, nausea, vomiting, lightheadedness, dizziness, and diarrhea. Review of Systems Review of Systems: See HPI Physical Exam Physical Exam: Constitutional: well-appearing, no acute distress CV: extremities well-perfused Resp: breathing non-labored Neuro: alert, oriented, no focal neurologic deficit appreciated Appearance: wearing paper gown, laying in hospital bed Behavior: calm, cooperative, eye contact good Mood: "okay" Affect: pleasant, affect congruent with mood Speech: appropriate rate/quantity/volume Thought process: linear, coherent Results & Data Results & Data Vital Signs (Past 12 Hours) Vital Signs Temp Pulse Pulse Pulse Resp BP Pulse Ox 09/11/22 07:24 48 L 09/11/22 03:25 36.6 C 53 L 16 95/59 L 96 09/10/22 22:19 51 L 09/10/22 21:22 36.6 C 58 L 18 92/56 L 99 O2 Del Method 09/11/22 07:24 09/11/22 03:25 Room Air 09/10/22 22:19 09/10/22 21:22 Room Air Resident Activity Tracking Resident Involvement: Resident Care Provided Care Provided: Adult Hospital Medicine
[2022-09-11] MEDS: DIVALPROEX DELAY RELEASE 250 MG TABEC PO SCH (07:56)
[2022-09-11 08:25] LABS: Albumin Globulin Ratio 1.7 (0.9-2); Albumin Level 3.4 gm/dl (3.4-5.0); BUN Creatinine Ratio 6.6 (10-20); Bilirubin,Total 0.4 mg/dl (0.2-1.0); Calcium 7.9 mg/dl (8.6-10.3); Creatinine Clr Calc Pharmacy 102.3 ml/min; Est GFR (African American) 127.2 ml/min; Est GFR (Non-African American) 109.8 ml/min; Potassium 3.6 mmol/L (3.5-5.1); Total Protein 5.4 gm/dl (6.0-8.3)
[2022-09-11] MEDS ORDERED: VENLAFAXINE HCL XR 75 MG CAPXR PO SCH (09:00)
[2022-09-11] MEDS ORDERED: SERTRALINE HCL 100 MG TABLET PO SCH (09:00)
[2022-09-11] MEDS: clonazePAM 1 MG TAB PO SCH (09:14)
[2022-09-11] MEDS: SULFAMETHOXAZOLE/TRIMETHOPRIM DS 800/160MG TAB PO SCH (09:15)
[2022-09-11] MEDS ORDERED: ONDANSETRON 4 MG OD TAB PO STA (12:43)
--- NOTE | 2022-09-11 15:55 | Discharge Summary ---
Date of Service September 11, 2022 Admission HPI Per Admitting Provider 22 yo female with PMHx of depression with suicidal ideation and anxiety presented with overdose and suicide attempt. Per ED note, "patient reports for the last 3 days she has been having increased feelings of depressions with plans to kill herself via overdose. Patient states "I feel like I am failing as a human".Patient states she planned to overdose and attempted overdose today taking 5 tablets of Klonopin 2 mg 30 minutes prior to arrival. No other co- ingestions. No access to any firearms. No chance of . No drugs or alcohol." Patient sleeping comfortably when seen by myself so no ROS obtained, h owever, she mentioned previously she was asymptomatic. Patient arrived hypotensive, at one point in the 70s systolic, and was given 1L bolus NSS with appropriate rise. Admission Exam Per Admitting Provider Constitutional: in no acute distress. Sleeping comfortably. Vitals as above. HEENT: Moist mucous membranes. Neck: Supple without lymphadenopathy or thyromegaly. Trachea midline. Lungs: Clear to auscultation bilaterally with good effort. Normal work of breathing. Cardiac: Regular rate and rhythm. No murmurs. No extremity edema. 2+ peripheral distal pulses Abdomen: Bowel sounds present. Soft, nontender, and nondistended. MSK: No cyanosis or clubbing. Skin: No rashes, warm, dry. Neurologic: not assessed due to pt sleeping Principal Diagnosis Intentional benzodiazepine overdose Discharge Exam Constitutional: well-appearing, no acute distress CV: extremities well-perfused Resp: breathing non-labored Neuro: alert, oriented, no focal neurologic deficit appreciated Appearance: wearing paper gown, laying in hospital bed Behavior: calm, cooperative, eye contact good Mood: "okay" Affect: pleasant, affect congruent with mood Speech: appropriate rate/quantity/volume Thought process: linear, coherent Discharge Data Allergies Allergy/AdvReac Type Severity Reaction Status Date / Time sertraline [From Zoloft] AdvReac Severe SI Verified 08/15/21 09:34 Consultations 09/09/22 22:51 ED Decision to Admit Stat 09/09/22 23:38 Consult Psychiatry Routine Hospital Course (1) Intentional benzodiazepine overdose: 22 yo female with a history of depression, suicidal ideation, and history of prior inpatient psychiatric stay presents after a suicide attempt via intentional benzodiazepine overdose. Intentional benzodiazepine overdose, bradycardia, hypotension Patient ingested ~10mg klonopin on 09/09/22 Vitals on admission notable for hypotension and bradycardia suspected secondary to benzodiazepine overdose; patient afebrile, spO2 adequate on room air No leukocytosis, electrolytes wnl, b-hCG negative EKG: sinus bradycardia without QTc prolongation UDS positive for benzodiazepines, cannabis, and MDMA; MDMA likely a false positive Continue conservative management; plan to transfer patient to inpatient behavioral unit once BP and HR stabilize Suicide attempt, history of major depression Patient reports a history of SI and a history of inpatient psychiatric stay Patient will go to inpatient behavioral unit once medically stable Continue home abilify, klonopin, depakote, sertraline, venlafaxine Suicide precautions, safe tray, continue 1:1 UTI UA on admission grossly infected Continue bactrim (three-day course, final dose 09/12/22) (2) Depression with suicidal ideation: (3) Anxiety: (4) Hypotension: Total Time Total Time Spent Total Time Spent (In Minutes): see attending documentation Discharge Plan Discharge Items Patient Disposition: Transfer Behavioral Health [facility] Reason For Visit: OVERDOSE Discharge Diagnosis: Overdose Activity: Per Instructions section Non-emergency contact: Primary Care Provider and Psychiatrist Call non-emergency contact if: you have any medication questions and your symptoms worsen Follow-up/Referrals: PCP,NO [Primary Care Provider] - Diet: Regular Addtl Attending Provider Instructions: Intentional benzodiazepine overdose, bradycardia, hypotension Patient ingested ~10mg klonopin on 09/09/22 Vitals on admission notable for hypotension and bradycardia suspected secondary to benzodiazepine overdose; patient afebrile, spO2 adequate on room air No leukocytosis, electrolytes wnl, b-hCG negative EKG: sinus bradycardia without QTc prolongation UDS positive for benzodiazepines, cannabis, and MDMA; MDMA likely a false positive Continue conservative management; plan to transfer patient to inpatient behavioral unit once BP and HR stabilize Suicide attempt, history of major depression Patient reports a history of SI and a history of inpatient psychiatric stay Patient will go to inpatient behavioral unit once medically stable Continue home abilify, klonopin, depakote, sertraline, venlafaxine Suicide precautions, safe tray, continue 1:1 UTI UA on admission grossly infected Continue bactrim (three-day course, final dose 09/12/22) Pending Studies at Discharge: No Stand-Alone Forms: My [facility] Medications and DC Order Prescriptions: New phenazopyridine [Pyridium] 200 mg Tablet 200 mg PO TID PRN (Reason: pain) 2 Days Qty: 6 0RF sulfamethoxazole-trimethoprim [Bactrim DS] 800-160 mg Tablet 1 tab PO Q12 3 Days Qty: 6 0RF Continued aripiprazole 10 mg tablet 10 mg QPM benztropine 0.5 mg tablet 0.5 mg BID buspirone 30 mg tablet 30 mg BID clonazepam 1 mg tablet 1 mg BID prazosin 2 mg capsule 4 mg HS propranolol 10 mg tablet 10 mg ONCE sertraline 100 mg tablet 100 mg BID divalproex 250 mg tablet,delayed release (DR/EC) 250 mg PO BID Vivitrol 380 mg suspension,extended rel recon 380 mg IM MONTHLY Discharge Orders: Discharge Order (Routine); Ordered 09/11/22 Ordered By: Emigdio Ba Admission Data Admit Date/Time: 09/09/22 23:38 Attending Provider: Mayank Hill Admit Provider: Alessio Zabala Primary Care Provider: PCP,NO Other Providers: Rina Brown ; Bijal Gutierrez ; Deniz Noland ; Marcelo Chavez Supervising Physician Co-Signing Physician Notes I personally examined the patient and verified all franco points of history and exam, discussed case, and agree with decision making with Dr Mejia resendiz soundly. nursing notes no trouble. walked frequently without difficulty vitals noted resting appearing comfortable nad heent nc at mmm breathing unlabored no accessory muscles good effort skin no rashes no pallor or icterus depression/anxiety/SI/overdose - fortunately doing well medically. strongly suspect (given asymptomatic) that HR and BP at this point are a function of her age and the fact that she has been resting/asleep. appearing medically safe for [facility]. otherwise as above Resident Activity Tracking Resident Involvement: Resident Care Provided Care Provided: Adult Hospital Medicine
--- NOTE | 2022-09-11 17:14 | Billing Data ---
Date of Service September 11, 2022 Coding Level of Care Code 24620 IN/OBS DISCH 30 MIN/LESS
[2022-09-11] MEDS ORDERED: DIVALPROEX DELAY RELEASE 500 MG TAB PO SCH (21:00)
[2022-09-15 13:42] LABS: 7-Aminoclonaz, Confirm 503 ng/mL (<25); Hydro-Alp Ur, GC/MS NEGATIVE ng/mL (<25); Hydroxyethylflurazepam, Conf NEGATIVE ng/mL (<50); Hydroxymidazolam Ur, GC/MS NEGATIVE ng/mL (<50); Hydroxytriazolam NEGATIVE ng/mL (<50); Lorazepam, Ur GC/MS NEGATIVE ng/mL (<50); MDA negative; MDEA negative; MDMA (Ecstasy) Urine, Confirm negative; Marijuana Quant, GCMS Urine 853 ng/mL (<5); Nordiazepam, Confirm NEGATIVE ng/mL (<50); Oxazepam Ur, GC/MS NEGATIVE ng/mL (<50); Temazepam, Confirm NEGATIVE ng/mL (<50)
== END 2022-09-11 17:42 ==
LOC: EDINP 16:07 → ED 16:07 → SUATTDRO 23:38 → 2N 09-10 01:25 → UNDODISOB 09-11 15:43

== ENCOUNTER 2022-09-11 15:53 | Inpatient (IN) ==
[2022-09-11] MEDS ORDERED: MAGNESIUM HYDROXIDE SUSP 30 ML UDC PO PRN (15:54)
[2022-09-11] MEDS ORDERED: ALUMINUM/MAGNESIUM SUSP 30 ML UDC PO PRN (15:54)
[2022-09-11] MEDS ORDERED: ACETAMINOPHEN 325 MG TAB PO PRN (15:54)
[2022-09-11] MEDS ORDERED: BISMUTH SUBSALICYLATE LIQD 236 ML PO PRN (15:54)
[2022-09-11] MEDS ORDERED: SODIUM CHLORIDE 0.65% NA SOLN 45 ML (OCEAN) PRN (15:54)
[2022-09-11] MEDS ORDERED: hydrOXYzine HCl 25 MG TAB PO PRN ×2 (15:54)
[2022-09-11] MEDS ORDERED: PHENAZOPYRIDINE HCL 200 MG TAB PO PRN (18:10)
[2022-09-11] MEDS ORDERED: clonazePAM 1 MG TAB PO PRN ×2 (18:32→18:49)
[2022-09-11] MEDS: NICOTINE POLACRILEX 2 MG GUM MT PRN (18:54)
[2022-09-11] MEDS ORDERED: Nursing to Pharmacy Communication SCH (19:00)
[2022-09-11] MEDS: NICOTINE 14 MG/24 HR PATCH TD SCH (19:26)
[2022-09-11] MEDS: DIVALPROEX DELAY RELEASE 250 MG TABEC PO SCH (23:03)
[2022-09-11] MEDS: ARIPiprazole 10 MG TAB PO SCH (23:03)
[2022-09-11] MEDS: SULFAMETHOXAZOLE/TRIMETHOPRIM DS 800/160MG TAB PO SCH (23:03)
--- NOTE | 2022-09-12 08:55 | History & Physical ---
Date of Service September 12, 2022 Impression / Recommendations Impression Darlene Pyle is a 22 year old woman who was admitted following a suicide attempt. Diagnostically consistent with likely depressive episode of bipolar affective disorder type II given history convincing for hypomanic episodes in the past including while not using any substances. Also consistent with MURTAZA, social anxiety, PTSD. Auditory hallucinations seem most consistent with trauma versus anxiety component as no other symptoms of acute psychosis. Certainly could be cluster B component as well though seems less likely than trauma contributing to self-harm and chronic intermittent SI. She is deemed in need of psychiatric hospitalization for diagnostic clarification, safety and stabilization, medication management and development of further coping skills. Discussed medication treatment options in detail including SSRIs, SNRIs, [place], Depakote, antipsychotics, gabapentin, propranolol, buspar, cogentin, clonazepam. Discussed risks, benefits and alternatives. Patient would like to start and consented to venlafaxine for depression/anxiety/PTSD, gabapentin for off-label use for anxiety and alcohol use disorder as well as recent nerve pain/sciatica as well as continuing with Abilify for mood stabilization, tapering sertraline, propranolol for akathisia/anxiety and Klonopin for severe panic attacks. Reviewed side effects including but not limited to: GI, BUNN, sexual side effects, elevated HR and BP and counseled on black box warning of potential for emergence of or increased SI and need to let staff know should this occur or should they feel unsafe. Also discussed importance of seeking emergency care following discharge if this side effect occurs in the future with venlafaxine. Addiction potential, dizziness, potential for respiratory depression if combined with alcohol or clonazepam or other substances/medications with gabapentin;movement (TD, NMS), cardiac (QTc prolongation), and metabolic (stroke, insulin resistance) and necessity for fasting lipid and glucose labwork and AIMS done with score of 0 with Abilify; addictive potential with clonazepam especially given alcohol use history of goal of tapering this to discontinuation to only be used in future as 1-3 tabs per month for severe panic attacks; low heart rate and BP with propranolol. (1) Bipolar 2 disorder, major depressive episode: (2) Depression with suicidal ideation: (3) Intentional benzodiazepine overdose: (4) Post traumatic stress disorder (PTSD): (5) Generalized anxiety disorder with panic attacks: (6) Alcohol use disorder, severe, in early remission, dependence: (7) Hypotension: (8) UTI (urinary tract infection): (9) Social anxiety disorder: Plan 09/12/2022: The patient was [facility] on q15 min checks (behavioral with suicide precautions) for safety. The patient will participate in group, recreational, and milieu therapies and will be offered additional individual and family sessions as clinically appropriate. -Continue cross-taper from sertraline to venlafaxine ER -Continue Abilify 10mg HS -Discontinue Depakote -Discontinue Buspar -Discontinue Cogentin -Continue propranolol 10mg daily for akathisia -Start gabapentin 100mg TID prn for nerve pain/anxiety -Decrease Klonopin to 0.5mg daily prn for severe panic attack Inventory Assets Strengths: supportive relationships, willing to get treatment Needs: safety and stabilization, medication adjustment, additional coping skills, increased outpatient services Suicide Risk Level Suicide Risk Level: High-Moderate (q15 min suicide checks) (severe depression with suicide attempt with plan prior to admission but feels safe in the hospital, able to safety contract and agrees to let nursing/staff know should they develop plan, intent or feel unable to remain safe. ) Risk Factors Assessment : Yes Do You Have Access To A Gun?: No Mental Health Diagnoses: Yes Substance Use Disorders: Yes Previous Attempt: Yes Family History of Suicide: Yes Previous Psychiatric Hospitalization: Yes Hopelessness: Yes Protective Factors Assessment Employed: Yes Stable Relationships: Yes Supportive Family: Yes (grandparents, dad) Good Rapport with Provider: Yes Psychiatric History Identifying Data DARLENE PYLE is a 22-year-old F who currently lives in [place] with her grandparents, has a history of alcohol use disorder in early remission, PTSD, MURTAZA with panic attacks and agoraphobia, social anxiety, MDD and BPAD type II, and was admitted on 09/11/22 17:43 on a 201 voluntary commitment following suicide attempt. Chief Complaint "The feelings tend to fade when I'm in treatment but then after about two weeks the feelings tend to come back". History of Present Illness Darlene presented to the ED following suicide attempt via ingestion of 5 tabs of 2mg clonazepam (10mg total dose) and was admitted medically for bradycardia and hypotension. She is now medically stable and presents for psychiatric admission. She identifies worsening depression and recent psychosocial stressors including stressful work dynamics, adjusting to living with her grandparents, comparing her life to her friends success, feeling like a failure, strained relationship with her mother, and history of trauma as the reasons for her suicide attempt. She endorses depressive symptoms including anhedonia, tearfulness, self-guilt, hopelessness, helplessness, decreased energy, decreased motivation, increased sleep of staying in bed for up to 3 days at a time ~10 hours per day at minimum, decreased appetite. She endorses anxiety symptoms including excessive worry, restlessness, fatigue, muscle tension in shoulders/neck/headaches, only rare panic attacks but recently had a few panic attacks. She endorse PTSD symptoms including intrusive memories/flashbacks, avoidance, mood changes, hypervigilance, emotional lability, but no history of night terrors. She describes a history of going 5 days without sleeping or only sleeping about 20 minutes and in past would re-arrange all the cabinets in the kitchen at 3am. Most recently this summer while at [facility] she stayed up for multiple days living off Red Bull and nicotine and would drive around early in the morning. Recalls her mood being very elevated and happy during this time, more outgoing, more upbeat, but also jittery and it gets uncomfortable. Recalls spending a lot of money by ordering a lot of jewelry online during the last episode, and also ordered piercing materials and pierced her nose three times. She is currently prescribed psychiatric medications of sertraline 200mg daily (has not been helping), Wellbutrin XL 300mg daily (minimal benefit, difficult to tell because at same time as other medications), Klonopin 2mg HS (but has been taking as 1mg BID), Vivitrol IM monthly, Buspar 30mg daily, Abilify 10mg HS (seems to help but causes akathisia), Cogentin, Depakote DR 250mg BID (they've been tapering this), Prazosin 4mg HS, Propranolol 10mg daily. Psychiatric ROS notable for history of auditory hallucinations of hearing vague voices mumbling but no other history of psychosis. History of self-harm via cutting and burning last about 2 months ago. Past Psychiatric History Current Psychiatric Diagnosis: MDD with psychotic fx, social anx,MURTAZA, agoraphobia, PTSD, BPAD type II Outpatient Services: Redd Bertrand at [facility] for psych medication management; therapist Taryn at [facility] seeing weekly on and off since May 2021 Previous Psych Admissions: 4 total hospitalizations: [facility] August and September of 2021 [facility] 2020 age 13 at [place] [facility] PHP/IOP last spring 2021 through fall 2021 via [facility] in person and lived on site Do You Have Access To A Gun?: No History of Previous Suicide Attempt: Yes (2012) Describe Attempts in the Past: overdose on sertraline, Klonopin overdose leading to this admission Past Medication Trials: hx fluoxetine (kept needing higher doses for effect), olanzapine, gabapentin (recalls gaining weight), possible trial of Effexor in the past Past Head Trauma/Neuro History History of Concussion/Seizure: No Allergies Allergy/AdvReac Type Severity Reaction Status Date / Time No Known Allergies Allergy Unverified 09/12/22 09:51 Home Medications Medication Instructions Recorded Confirmed Type aripiprazole 10 mg tablet 10 mg QPM 09/09/22 09/11/22 History benztropine 0.5 mg tablet 0.5 mg BID 09/09/22 09/11/22 History buspirone 30 mg tablet 30 mg QAM 09/09/22 09/11/22 History clonazepam 1 mg tablet 1 mg BID 09/09/22 09/11/22 History divalproex 250 mg tablet,delayed 250 mg PO BID 09/09/22 09/11/22 History release naltrexone microspheres 380 mg 380 mg IM MONTHLY 09/09/22 09/11/22 History intramuscular suspension,extended release (Vivitrol) prazosin 2 mg capsule 4 mg HS 09/09/22 09/11/22 History propranolol 10 mg tablet 10 mg QAM 09/09/22 09/11/22 History sertraline 100 mg tablet 100 mg BID 09/09/22 09/11/22 History phenazopyridine 200 mg tablet 200 mg PO TID PRN pain 2 days #6 09/10/22 09/11/22 Rx (Pyridium) tabs sulfamethoxazole 800 1 tab PO Q12 3 days #6 tabs 09/10/22 09/11/22 Rx mg-trimethoprim 160 mg tablet (Bactrim DS) bupropion HCl 300 mg 24 hr tablet, 300 mg PO QAM 09/12/22 09/12/22 History extended release Family History Family History of: Depression (possibly in father), Psychosis/ThoughtDisorder (paternal grandmother schizophrenia), Alcoholism/Drug Abuse (both sides including alcohol in both of her parents), Other-List under Comment (maternal great aunt with hx psychiatric hospitalizations) and Suicide Completion (paternal grandmother) Alcohol History Hx of Alcohol Use Over the Past 12 Months: Yes (sober for 2 months) AUDIT Total Score: 0 History of significant alcohol use, was recently at [facility]/IOP treatment at [facility] for 10 months, had relapse in April 2022 and left [facility]. Has now been sober since April 2022. Getting Vivitrol injection and finds this helpful. Smoking Use Have You Smoked or Used Tobacco Products in the Last 30 Days: Yes tobacco type: e-cigarettes Smoking Status: Current every day smoker Smoking packs per day: 1 Substance History Hx of Prescription Med Misuse Over the Past 12 Months: Yes (attempted OD on klonopin) Hx of Over the Counter Med Misuse Over the Past 12 Months: No Hx of Inhalent Misuse Over the Past 12 Months: No Hx of Organic Substance Use Over the Past 12 Months: No Hx of Illegal Substances/Street Drug Use Over Past 12 Months: No Problems as a Result of Past Substance Use: Attempted Suicide smokes marijuana and likes that in the moment it "takes me out of the moment" but wants to stop this because she recognizes that it makes her anxiety worse and leads to avoidance Personal History Childhood: parents , very strained relationship with her mother, distant relationship with her dad but recently he has been more supportive. 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) Marital Status: Single (but in a 10mo relationship) Number Of Children: 0 Beliefs That Will Affect Care: None Current Legal Problems: No Hx Legal Problems: No Hx Traumatic Life Events: Yes Patient History Medical History (Updated 09/12/22 @ 11:08 by Rina Brown MD) Abdominal pain Depression with suicidal ideation Epistaxis Generalized anxiety disorder with panic attacks Generalized pain Hematuria No significant active problems Overdose of antidepressant 2014 SI Pelvic pain Post traumatic stress disorder (PTSD) Social anxiety disorder Suicidal intent Surgical History No pertinent past surgical history Family History Other No pertinent family history Denies family history of Colon cancer Ovarian cancer Prostate cancer Myocardial infarction Breast cancer Social History Smoking Status: Current every day smoker Tobacco Type: Cigarettes and E-cigarettes / Vaping Hx Alcohol Use: Yes Alcohol type: other Hx Substance Use: No Preferred Language: Martiniquais Communication Ability: Effective Visual Impairment: No Limitations Hearing Ability: Normal 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: No Beliefs That Will Affect Care: None marital status: Single Current Living Situation: Family current occupational status: employed Feels Safe at Home: Yes Dental Care, Regularly: Yes Physical Activity Frequency: Does not Exercise Gender Identity: Female Assistive Devices: None Review of Systems Review of Systems: All systems reviewed & are unremarkable except as noted in HPI & below (left hip/bottom pain that radiates down her leg, shock of pain) Physical Exam Psychiatric: Orientation: alert and oriented x 3 Apperance: appropriately dressed and appropriately groomed Eye Contact: good eye contact Motor Behavior: no abnormal motor movements Speech: + abnormal rate/rhythm/volume of speech (soft volume) Affect: + depressed affect, + anxious affect and + tearful affect Mood: + depressed mood and + anxious mood Thought Process: goal directed thought process Thought Content: reality based without delusions Suicidal Thoughts: denies suicidal intent; + reports suicidal thoughts (intermittent thoughts) and + reports suicidal plan (none for here in the hospital, multiple for outside the hospital) Homicidal Thoughts: denies homicidal thoughts Hallucinations: no auditory hallucinations (intermittently will hear mumbling voices like background noises in a cafe ) and no visual hallucinations Cognition: recent memory grossly intact, remote memory grossly intact, attention grossly intact and language grossly intact Estimated Intelligence: consistent with education level Insight: + fair insight Judgment: + limited judgement Vital Signs (Past 24 Hours): Last Vital Signs Temp 36.5 C 09/12/22 06:00 Pulse 49 L 09/12/22 06:00 Resp 16 09/12/22 06:00 BP 79/51 L 09/12/22 06:14 Pulse Ox 97 09/12/22 06:00 O2 Del Method Room Air 09/12/22 06:00 Exam Statement: A physical exam was performed on the medical floor by Dr. Hill for the purposes of medical clearance. I accept that physical as correct and adequate for the purposes of the inpatient physical exam. Results & Data ([facility]) Current Inpatient Medications Current Inpatient Medications: Current Inpatient Medications Acetaminophen (Acetaminophen 325 Mg Tab) 650 mg PO Q4H PRN PRN Reason: Headache or Minor Fever Stop: 10/11/22 15:53 Al Hydrox/Mg Hydrox/Simethicone (Aluminum/Magnesium Susp 30 Ml Udc) 30 ml PO Q4H PRN PRN Reason: GI Upset Stop: 10/11/22 15:53 Aripiprazole (Aripiprazole 10 Mg Tab) 10 mg PO HS ELIZABETH Stop: 10/11/22 21:59 Last Admin: 09/11/22 23:03 Dose: 10 mg Bismuth Subsalicylate (Bismuth Subsalicylate Liqd 236 Ml) 15 ml PO PRN PRN PRN Reason: Loose Stool Stop: 10/11/22 15:53 Clonazepam (Clonazepam 1 Mg Tab) 1 mg PO DAILY PRN PRN Reason: signs of benzo withdrawal Stop: 10/11/22 18:48 Last Admin: 09/11/22 23:07 Dose: 1 mg Divalproex Sodium (Divalproex Delay Release 250 Mg Tabec) 250 mg PO BID ELIAZBETH Stop: 10/11/22 20:59 Last Admin: 09/11/22 23:03 Dose: 250 mg Hydroxyzine HCl (Hydroxyzine Hcl 25 Mg Tab) 50 mg PO HSZ PRN PRN Reason: Insomnia Stop: 10/11/22 15:53 Hydroxyzine HCl (Hydroxyzine Hcl 25 Mg Tab) 25 mg PO Q4H PRN PRN Reason: Anxiety Stop: 10/11/22 15:53 Magnesium Hydroxide (Magnesium Hydroxide Susp 30 Ml Udc) 30 ml PO DAILY PRN PRN Reason: Constipation Stop: 10/11/22 15:53 Miscellaneous (Remove Nicoderm Patch) 1 each N/A DAILY@0859 ELIZABETH Stop: 10/12/22 08:58 Nicotine (Nicotine 14 Mg/24 Hr Patch) 14 mg TD QAM ELIZABETH Stop: 10/11/22 19:04 Last Admin: 09/11/22 19:26 Dose: 14 mg Nicotine Polacrilex (Nicotine Polacrilex 2 Mg Gum) 2 piece MT PRN PRN PRN Reason: tobacco withdrawal Stop: 10/11/22 17:11 Last Admin: 09/11/22 18:54 Dose: 2 piece Phenazopyridine HCl (Phenazopyridine Hcl 200 Mg Tab) 200 mg PO TID PRN PRN Reason: bladder pain Stop: 10/11/22 18:09 Sertraline HCl (Sertraline Hcl 50 Mg Tablet) 50 mg PO QAM [facility] Stop: 10/12/22 08:59 Sodium Chloride (Sodium Chloride 0.65% Na Soln 45 M[address] ([facility])) 1 - 2 sprays NA PRN PRN PRN Reason: Nasal Dryness/Congestion Stop: 10/11/22 15:53 Trimethoprim/Sulfamethoxazole (Sulfamethoxazole/Trimethoprim Ds 800/160mg Tab) 1 tab PO Q12 [facility] Stop: 09/16/22 20:59 Last Admin: 09/11/22 23:03 Dose: 1 tab Venlafaxine HCl (Venlafaxine Hcl Xr 75 Mg Capxr) 75 mg PO QAM [facility] Stop: 10/12/22 08:59
[2022-09-12] MEDS: SULFAMETHOXAZOLE/TRIMETHOPRIM DS 800/160MG TAB PO SCH (08:57)
[2022-09-12] MEDS: NICOTINE 14 MG/24 HR PATCH TD SCH (08:57)
[2022-09-12] MEDS: DIVALPROEX DELAY RELEASE 250 MG TABEC PO SCH (08:57)
[2022-09-12] MEDS ORDERED: VENLAFAXINE HCL XR 75 MG CAPXR PO SCH (09:00)
[2022-09-12] MEDS ORDERED: NICOTINE 14 MG/24 HR PATCH TD SCH (09:00)
[2022-09-12] MEDS ORDERED: SERTRALINE HCL 50 MG TABLET PO SCH (09:00)
[2022-09-12] MEDS: NICOTINE POLACRILEX 2 MG GUM MT PRN ×3 (10:44→20:01)
[2022-09-12] MEDS ORDERED: clonazePAM 0.5 MG TAB PO PRN (11:14)
[2022-09-12] MEDS: PROPRANOLOL HCL 10 MG TAB PO SCH (12:37)
[2022-09-12] MEDS: ARIPiprazole 10 MG TAB PO SCH (21:20)
[2022-09-13 07:51] LABS: Chol HDL Ratio 3.5 (0-5)
[2022-09-13] MEDS ORDERED: SERTRALINE HCL 50 MG TABLET PO SCH (09:00)
[2022-09-13] MEDS: NICOTINE 14 MG/24 HR PATCH TD SCH (09:09)
[2022-09-13] MEDS: NICOTINE POLACRILEX 2 MG GUM MT PRN ×4 (09:10→17:38)
[2022-09-13] MEDS: VENLAFAXINE HCL XR 150 MG CAPXR PO SCH (09:19)
[2022-09-13] MEDS: PROPRANOLOL HCL 10 MG TAB PO SCH ×2 (09:20→20:54)
--- NOTE | 2022-09-13 15:32 | Psychiatric Progress Note ---
Date of Service September 13, 2022 Impression / Recommendations Impression Darlene Dennis is a 22 year old woman who was admitted following a suicide attempt. Diagnostically consistent with likely depressive episode of bipolar affective disorder type II given history convincing for hypomanic episodes in the past including while not using any substances. Also consistent with MRUTAZA, social anxiety, PTSD. Auditory hallucinations seem most consistent with trauma versus anxiety component as no other symptoms of acute psychosis. Certainly could be cluster B component as well though seems less likely than trauma contributing to self-harm and chronic intermittent SI. She is deemed in need of psychiatric hospitalization for diagnostic clarification, safety and stabilization, medication management and development of further coping skills. 09/13/2022: Mood slightly improved today but still with depression, anxiety and intermittent SI. Tolerating cross-taper to venlafaxine so far. Would like to continue with abilify for mood stabilization for now. Consents to increasing propranolol to help with possible familial benign tremor and anxiety. Reviewed fasting glucose and lipid panel which were normal. (1) Bipolar 2 disorder, major depressive episode: (2) Depression with suicidal ideation: (3) Intentional benzodiazepine overdose: (4) Post traumatic stress disorder (PTSD): (5) Generalized anxiety disorder with panic attacks: (6) Alcohol use disorder, severe, in early remission, dependence: (7) Hypotension: (8) UTI (urinary tract infection): (9) Social anxiety disorder: Plan 09/13/2022: Increase propranolol to 10mg BID. Continue with abilify. Decrease sertraline to 25mg daily and increased venlafaxine ER to 150mg daily. Has gabapentin 100mg TID prn available for anxiety and Klonopin 0.5mg prn for panic attack. 09/12/2022: The patient was admitted to the [facility] ([facility] unit) on q15 min checks (behavioral with suicide precautions) for safety. The patient will participate in group, recreational, and milieu therapies and will be offered additional individual and family sessions as clinically appropriate. -Continue cross-taper from sertraline to venlafaxine ER -Continue Abilify 10mg HS -Discontinue Depakote -Discontinue Buspar -Discontinue Cogentin -Continue propranolol 10mg daily for akathisia -Start gabapentin 100mg TID prn for nerve pain/anxiety -Decrease Klonopin to 0.5mg daily prn for severe panic attack Inventory Assets Strengths: supportive relationships, willing to get treatment Needs: safety and stabilization, medication adjustment, additional coping skills, increased outpatient services Suicide Risk Level Suicide Risk Level: High-Moderate (q15 min suicide checks) (severe depression with suicide attempt with plan prior to admission but feels safe in the hospital, able to safety contract and agrees to let nursing/staff know should they develop plan, intent or feel unable to remain safe. ) Risk Factors Assessment : Yes Do You Have Access To A Gun?: No Mental Health Diagnoses: Yes Substance Use Disorders: Yes Previous Attempt: Yes Family History of Suicide: Yes Previous Psychiatric Hospitalization: Yes Hopelessness: Yes Protective Factors Assessment Employed: Yes Stable Relationships: Yes Supportive Family: Yes (grandparents, dad) Good Rapport with Provider: Yes Interval History Identifying Information DARLENE DENNIS is a 22-year-old F who currently lives in [place] with her grandparents, has a history of alcohol use disorder in early remission, PTSD, MURTAZA with panic attacks and agoraphobia, social anxiety, MDD and BPAD type II, and was admitted on 09/11/22 17:43 on a 201 voluntary commitment following suicide attempt. Chief Complaint "I'm pretty good today". Review of Systems Sleep Information Total Hours of Sleep: 7 Meal Information Percent Meal Consumed - Breakfast: 100 Percent Meal Consumed - Lunch: 100 Percent Meal Consumed - Dinner: 75 Subjective Subjective Patient was seen & assessed and interval progress reviewed with treatment team nursing and social work. Had a panic attack yesterday evening after showering. She attributes it to thinking about her strained relationship with her mom while she was in the shower. Denies any side effects from medication adjustments. Has resting tremor bilaterally which she notes is worse with anxiety, doesn't know if any one else in the family has it. Feels when she focuses on it, it gets worse. Hasn't noticed if propranolol helps. No increased akathisia or EPS symptoms with stopping cogentin. Likes the Effexor so far. SI is less intense today more "passing thoughts" and glad to be alive and survived suicide attempt. No panic attacks so far today. Had multiple awakenings with sleep last night but fell back to sleep quickly each time. Physical Exam Psychiatric Orientation: alert and oriented x 3 Apperance: appropriately dressed and appropriately groomed Eye Contact: good eye contact Motor Behavior: no abnormal motor movements Speech: + abnormal rate/rhythm/volume of speech (soft volume) Affect: + depressed affect and + anxious affect Mood: + depressed mood and + anxious mood Thought Process: goal directed thought process Thought Content: reality based without delusions Suicidal Thoughts: denies suicidal intent; + reports suicidal thoughts (intermittent thoughts) and + reports suicidal plan (none for here in the hospital, multiple for outside the hospital) Homicidal Thoughts: denies homicidal thoughts Hallucinations: no auditory hallucinations (intermittently will hear mumbling voices like background noises in a cafe ) and no visual hallucinations Cognition: recent memory grossly intact, remote memory grossly intact, attention grossly intact and language grossly intact Estimated Intelligence: consistent with education level Insight: + fair insight Judgment: + limited judgement Vital Signs (Past 24 Hours) Last Vital Signs Temp 36.7 C 09/13/22 06:00 Pulse 64 09/13/22 09:06 Resp 16 09/13/22 06:00 BP 100/66 09/13/22 09:06 Pulse Ox 98 09/13/22 06:00 O2 Del Method Room Air 09/13/22 06:00 Results & Data ([facility]) Laboratory Results Laboratory Results - last 24 hr 09/13/22 07:11 Fasting Glucose 82 Triglycerides 89 Cholesterol 172 LDL Cholesterol, Calc 105 VLDL Cholesterol, Calc 18 HDL Cholesterol 49 Cholesterol/HDL Ratio 3.5 Current Inpatient Medications Current Inpatient Medications: Current Inpatient Medications Acetaminophen (Acetaminophen 325 Mg Tab) 650 mg PO Q4H PRN PRN Reason: Headache or Minor Fever Stop: 10/11/22 15:53 Al Hydrox/Mg Hydrox/Simethicone (Aluminum/Magnesium Susp 30 Ml Udc) 30 ml PO Q4H PRN PRN Reason: GI Upset Stop: 10/11/22 15:53 Aripiprazole (Aripiprazole 10 Mg Tab) 10 mg PO HS [facility] Stop: 10/11/22 21:59 Last Admin: 09/12/22 21:20 Dose: 10 mg Bismuth Subsalicylate (Bismuth Subsalicylate Liqd 236 Ml) 15 ml PO PRN PRN PRN Reason: Loose Stool Stop: 10/11/22 15:53 Clonazepam (Clonazepam 0.5 Mg Tab) 0.5 mg PO DAILY PRN PRN Reason: panic attack Stop: 10/11/22 18:48 Gabapentin (Gabapentin 100 Mg Cap) 100 mg PO TID PRN PRN Reason: Anxiety Stop: 10/12/22 13:59 Hydroxyzine HCl (Hydroxyzine Hcl 25 Mg Tab) 50 mg PO HSZ PRN PRN Reason: Insomnia Stop: 10/11/22 15:53 Hydroxyzine HCl (Hydroxyzine Hcl 25 Mg Tab) 25 mg PO Q4H PRN PRN Reason: Anxiety Stop: 10/11/22 15:53 Magnesium Hydroxide (Magnesium Hydroxide Susp 30 Ml Udc) 30 ml PO DAILY PRN PRN Reason: Constipation Stop: 10/11/22 15:53 Miscellaneous (Remove Nicoderm Patch) 1 each N/A DAILY@0859 [facility] Stop: 10/12/22 08:58 Last Admin: 09/13/22 09:17 Dose: 1 each Nicotine (Nicotine 14 Mg/24 Hr Patch) [facility] [place] [facility] [place]: 10/11/22 19:04 Last Admin: 09/13/22 09:09 Dose: 14 mg Nicotine Polacrilex (Nicotine Polacrilex 2 Mg Gum) 2 piece MT PRN PRN PRN Reason: tobacco withdrawal Stop: 10/11/22 17:11 Last Admin: 09/13/22 15:27 Dose: 2 piece Phenazopyridine HCl (Phenazopyridine Hcl 200 Mg Tab) 200 mg PO TID PRN PRN Reason: bladder pain Stop: 10/11/22 18:09 Propranolol HCl (Propranolol Hcl 10 Mg Tab) 10 mg PO QAM [facility] Stop: 10/12/22 11:44 Last Admin: 09/13/22 09:20 Dose: Not Given Sertraline HCl (Sertraline Hcl 50 Mg Tablet) 25 mg PO QAM [facility] Stop: 10/13/22 08:59 Last Admin: 09/13/22 09:11 Dose: 25 mg Sodium Chloride (Sodium Chloride 0.65% Na Soln 45 Ml ([place])) 1 - 2 sprays NA PRN PRN PRN Reason: Nasal Dryness/Congestion Stop: 10/11/22 15:53 Venlafaxine HCl (Venlafaxine Hcl Xr 150 Mg Capxr) 150 mg PO QAM [facility] Stop: 10/13/22 08:59 Last Admin: 09/13/22 09:19 Dose: 150 mg Mental Health & Subst Abuse Tx Therapist Name of Therapist: [facility]
[2022-09-13] MEDS: ARIPiprazole 10 MG TAB PO SCH (20:54)
[2022-09-14] MEDS: NICOTINE 14 MG/24 HR PATCH TD SCH (08:51)
[2022-09-14] MEDS: VENLAFAXINE HCL XR 150 MG CAPXR PO SCH (08:51)
[2022-09-14] MEDS: PROPRANOLOL HCL 10 MG TAB PO SCH ×2 (08:52→20:55)
[2022-09-14] MEDS: NICOTINE POLACRILEX 2 MG GUM MT PRN ×3 (08:56→18:03)
[2022-09-14] MEDS ORDERED: traZODone HCL 50 MG TAB PO PRN (11:46)
--- NOTE | 2022-09-14 11:46 | Psychiatric Progress Note ---
Date of Service September 14, 2022 Impression / Recommendations Impression Darlene Dennis is a 22 year old woman who was admitted following a suicide attempt. Diagnostically consistent with likely depressive episode of bipolar affective disorder type II given history convincing for hypomanic episodes in the past including while not using any substances. Also consistent with MURTAZA, social anxiety, PTSD. Auditory hallucinations seem most consistent with trauma versus anxiety component as no other symptoms of acute psychosis. Certainly could be cluster B component as well though seems less likely than trauma contributing to self-harm and chronic intermittent SI. She is deemed in need of psychiatric hospitalization for diagnostic clarification, safety and stabilization, medication management and development of further coping skills. 09/14/2022: Still with depression, anxiety, panic attacks and more fatigued today due to insomnia. Discussed medication options for insomnia and she consents to trial of trazodone prn which was helpful in the past. Reviewed side effects including but not limited to: sedation, increased appetite, black box warning for SI. Extensive motivation interviewing regarding substance use and discussed additional options for therapy via IOP and attending AA or NA which also provides additional options for expanded her supports. (1) Bipolar 2 disorder, major depressive episode: (2) Depression with suicidal ideation: (3) Intentional benzodiazepine overdose: (4) Post traumatic stress disorder (PTSD): (5) Generalized anxiety disorder with panic attacks: (6) Alcohol use disorder, severe, in early remission, dependence: (7) Hypotension: (8) UTI (urinary tract infection): (9) Social anxiety disorder: Plan 09/14/2022: Continue with abilify 10mg HS. Continue venlafaxine ER 150mg daily. Discontinue sertraline. Start trazodone 50mg HS prn for insomnia. 09/13/2022: Increase propranolol to 10mg BID. Continue with abilify. Decrease sertraline to 25mg daily and increased venlafaxine ER to 150mg daily. Has gabapentin 100mg TID prn available for anxiety and Klonopin 0.5mg prn for panic attack. 09/12/2022: The patient was admitted to the [facility] ([facility] mental health unit) on q15 min checks (behavioral with suicide precautions) for safety. The patient will participate in group, recreational, and milieu therapies and will be offered additional individual and family sessions as clinically appropriate. -Continue cross-taper from sertraline to venlafaxine ER -Continue Abilify 10mg HS -Discontinue Depakote -Discontinue Buspar -Discontinue Cogentin -Continue propranolol 10mg daily for akathisia -Start gabapentin 100mg TID prn for nerve pain/anxiety -Decrease Klonopin to 0.5mg daily prn for severe panic attack Inventory Assets Strengths: supportive relationships, willing to get treatment Needs: safety and stabilization, medication adjustment, additional coping skills, increased outpatient services Suicide Risk Level Suicide Risk Level: Moderate (q15 min suicide checks) (severe depression with suicide attempt with plan prior to admission but denies SI today, feels safe in the hospital, able to safety contract and agrees to let nursing/staff know should they develop plan, intent or feel unable to remain safe. ) Risk Factors Assessment : Yes Do You Have Access To A Gun?: No Mental Health Diagnoses: Yes Substance Use Disorders: Yes Previous Attempt: Yes Family History of Suicide: Yes Previous Psychiatric Hospitalization: Yes Hopelessness: Yes Protective Factors Assessment Employed: Yes Stable Relationships: Yes Supportive Family: Yes (grandparents, dad) Good Rapport with Provider: Yes Interval History Identifying Information DARLENE DENNIS is a 22-year-old F who currently lives in [place] with her grandparents, has a history of alcohol use disorder in early remission, PTSD, MURTAZA with panic attacks and agoraphobia, social anxiety, MDD and BPAD type II, and was admitted on 09/11/22 17:43 on a 201 voluntary commitment following suicide attempt. Chief Complaint "I'm pretty tired". Review of Systems Sleep Information Total Hours of Sleep: 6.5 Meal Information Percent Meal Consumed - Breakfast: 100 Percent Meal Consumed - Lunch: 100 Percent Meal Consumed - Dinner: 100 Subjective Subjective Patient was seen & assessed and interval progress reviewed with treatment team nursing and social work. Darlene feels tired today which she attributes to poor sleep even with prn Vistaril. She had a panic attack with episode of emesis yesterday evening. States she forgot she could ask for gabapentin or other medication options for anxiety so managed the symptoms using some coping skills. Did feel propranolol evening dose was very helpful for resolving panic attack symptoms. Woke up a lot over night. This morning BP was too low to get propranolol. Denies any lightheadedness or dizziness. Denies any side effects from venlafaxine ER, discussed this can sometimes cause diaphoresis and GI symptoms but she notes she has experienced "hot flashes" and GI symptoms with panic attacks before so she thinks it is due to the panic attacks. No side effects from Abilify. Reflected on how she struggles to communicate when she becomes more depressed and how she wants to rebuild trust with her grandmother following this attempt. Described how she sees the world as unsafe and untrustworthy and explored potential ways to increase supports outside of her family. Confirmed that she does a [facility] [employer] [facility] on for anxiety. Physical Exam Psychiatric Orientation: alert and oriented x 3 Apperance: appropriately dressed and appropriately groomed Eye Contact: good eye contact Motor Behavior: no abnormal motor movements Speech: + abnormal rate/rhythm/volume of speech (soft volume) Affect: + depressed affect and + anxious affect Mood: + depressed mood and + anxious mood Thought Process: goal directed thought process Thought Content: reality based without delusions Suicidal Thoughts: denies suicidal thoughts (intermittent thoughts, none so far today), denies suicidal plan and denies suicidal intent Homicidal Thoughts: denies homicidal thoughts Hallucinations: no auditory hallucinations (intermittently will hear mumbling voices like background noises in a cafe ) and no visual hallucinations Cognition: recent memory grossly intact, remote memory grossly intact, attention grossly intact and language grossly intact Estimated Intelligence: consistent with education level Insight: + fair insight Judgment: + limited judgement Vital Signs (Past 24 Hours) Last Vital Signs Temp 36.7 C 09/14/22 06:39 Pulse 76 09/14/22 08:50 Resp 16 09/14/22 06:39 BP 102/71 09/14/22 08:50 Pulse Ox 98 09/13/22 06:00 O2 Del Method Room Air 09/13/22 06:00 Results & Data ([facility]) Current Inpatient Medications Current Inpatient Medications: Current Inpatient Medications Acetaminophen (Acetaminophen 325 Mg Tab) 650 mg PO Q4H PRN PRN Reason: Headache or Minor Fever Stop: 10/11/22 15:53 Al Hydrox/Mg Hydrox/Simethicone (Aluminum/Magnesium Susp 30 Ml Udc) 30 ml PO Q4H PRN PRN Reason: GI Upset Stop: 10/11/22 15:53 Aripiprazole (Aripiprazole 10 Mg Tab) 10 mg PO HS [facility] Stop: 10/11/22 21:59 Last Admin: 09/13/22 20:54 Dose: 10 mg Bismuth Subsalicylate (Bismuth Subsalicylate Liqd 236 Ml) 15 ml PO PRN PRN PRN Reason: Loose Stool Stop: 10/11/22 15:53 Clonazepam (Clonazepam 0.5 Mg Tab) 0.5 mg PO DAILY PRN PRN Reason: panic attack Stop: 10/11/22 18:48 Gabapentin (Gabapentin 100 Mg Cap) 100 mg PO TID PRN PRN Reason: Anxiety Stop: 10/12/22 13:59 Hydroxyzine HCl (Hydroxyzine Hcl 25 Mg Tab) 50 mg PO HSZ PRN PRN Reason: Insomnia Stop: 10/11/22 15:53 Last Admin: 09/13/22 22:19 Dose: 50 mg Hydroxyzine HCl (Hydroxyzine Hcl 25 Mg Tab) 25 mg PO Q4H PRN PRN Reason: Anxiety Stop: 10/11/22 15:53 Magnesium Hydroxide (Magnesium Hydroxide Susp 30 Ml Udc) 30 ml PO DAILY PRN PRN Reason: Constipation Stop: 10/11/22 15:53 Miscellaneous (Remove Nicoderm Patch) 1 each N/A DAILY@0859 [facility] Stop: 10/12/22 08:58 Last Admin: 09/14/22 08:52 Dose: 1 each Nicotine (Nicotine 14 Mg/24 Hr Patch) 14 mg TD QAM [facility] Stop: 10/11/22 19:04 Last Admin: 09/14/22 08:51 Dose: 14 mg Nicotine Polacrilex (Nicotine Polacrilex 2 Mg Gum) 2 piece MT PRN PRN PRN Reason: tobacco withdrawal Stop: 10/11/22 17:11 Last Admin: 09/14/22 08:56 Dose: 2 piece Phenazopyridine HCl (Phenazopyridine Hcl 200 Mg Tab) 200 mg PO TID PRN PRN Reason: bladder pain Stop: 10/11/22 18:09 Propranolol HCl (Propranolol Hcl 10 Mg Tab) 10 mg PO BID [facility] Stop: 10/13/22 20:59 Last Admin: 09/14/22 08:52 Dose: Not Given Sodium Chloride (Sodium Chloride 0.65% Na Soln 45 Ml ([place])) 1 - 2 sprays NA PRN PRN PRN Reason: Nasal Dryness/Congestion Stop: 10/11/22 15:53 Venlafaxine HCl (Venlafaxine Hcl Xr 150 Mg Capxr) 150 mg PO QAM [facility] Stop: 10/13/22 08:59 Last Admin: 09/14/22 08:51 Dose: 150 mg Mental Health & Subst Abuse Tx Therapist Name of Therapist: [facility]
[2022-09-14] MEDS: GABAPENTIN 100 MG CAP PO PRN (12:31)
[2022-09-14] MEDS: ARIPiprazole 10 MG TAB PO SCH (20:55)
[2022-09-15] MEDS: VENLAFAXINE HCL XR 150 MG CAPXR PO SCH (09:11)
[2022-09-15] MEDS: PROPRANOLOL HCL 10 MG TAB PO SCH (09:12)
[2022-09-15] MEDS: NICOTINE 14 MG/24 HR PATCH TD SCH (09:12)
[2022-09-15] MEDS: NICOTINE POLACRILEX 2 MG GUM MT PRN ×3 (09:14→17:51)
[2022-09-15] MEDS: GABAPENTIN 100 MG CAP PO PRN (12:46)
--- NOTE | 2022-09-15 15:14 | Psychiatric Progress Note ---
Date of Service September 15, 2022 Impression / Recommendations Impression Darlene Pyle is a 22 year old woman who was admitted following a suicide attempt. Diagnostically consistent with likely depressive episode of bipolar affective disorder type II given history convincing for hypomanic episodes in the past including while not using any substances. Also consistent with MURTAZA, social anxiety, PTSD. Auditory hallucinations seem most consistent with trauma versus anxiety component as no other symptoms of acute psychosis. Certainly could be cluster B component as well though seems less likely than trauma contributing to self-harm and chronic intermittent SI. She is deemed in need of psychiatric hospitalization for diagnostic clarification, safety and stabilization, medication management and development of further coping skills. 09/15/2022: Mood improving and no SI. Still with reported insomnia, documented as sleeping throughout the night but she experiences frequent awakenings. Consents to trial of higher dose of trazodone. Tolerating other medication changes well. (1) Bipolar 2 disorder, major depressive episode: (2) Depression with suicidal ideation: (3) Intentional benzodiazepine overdose: (4) Post traumatic stress disorder (PTSD): (5) Generalized anxiety disorder with panic attacks: (6) Alcohol use disorder, severe, in early remission, dependence: (7) Hypotension: (8) UTI (urinary tract infection): (9) Social anxiety disorder: Plan 09/15/2022: Increase trazodone to 100mg HS prn. Decrease propranolol to 10mg HS (as BP consistently too low in AM for AM dose). Continue abilify and venlafaxine and gabapentin prn. 09/14/2022: Continue with abilify 10mg HS. Continue venlafaxine ER 150mg daily. Discontinue sertraline. Start trazodone 50mg HS prn for insomnia. 09/13/2022: Increase propranolol to 10mg BID. Continue with abilify. Decrease sertraline to 25mg daily and increased venlafaxine ER to 150mg daily. Has gabapentin 100mg TID prn available for anxiety and Klonopin 0.5mg prn for panic attack. 09/12/2022: The patient was admitted to the [facility] ([facility] unit) on q15 min checks (behavioral with suicide precautions) for safety. The patient will participate in group, recreational, and milieu therapies and will be offered additional individual and family sessions as clinically appropriate. -Continue cross-taper from sertraline to venlafaxine ER -Continue Abilify 10mg HS -Discontinue Depakote -Discontinue Buspar -Discontinue Cogentin -Continue propranolol 10mg daily for akathisia -Start gabapentin 100mg TID prn for nerve pain/anxiety -Decrease Klonopin to 0.5mg daily prn for severe panic attack Inventory Assets Strengths: supportive relationships, willing to get treatment Needs: safety and stabilization, medication adjustment, additional coping skills, increased outpatient services Suicide Risk Level Suicide Risk Level: Moderate (q15 min suicide checks) (severe depression with suicide attempt with plan prior to admission but mood improving, denies SI, feels safe in the hospital, able to safety contract and agrees to let nursing/staff know should they develop plan, intent or feel unable to remain safe. ) Suicide Risk Level Comments: Risk Factors Assessment : Yes Do You Have Access To A Gun?: No Mental Health Diagnoses: Yes Substance Use Disorders: Yes Previous Attempt: Yes Family History of Suicide: Yes Previous Psychiatric Hospitalization: Yes Hopelessness: Yes Protective Factors Assessment Employed: Yes Stable Relationships: Yes Supportive Family: Yes (grandparents, dad) Good Rapport with Provider: Yes Interval History Identifying Information DARLENE PYLE is a 22-year-old F who currently lives in [place] with her grandparents, has a history of alcohol use disorder in early remission, PTSD, MURTAZA with panic attacks and agoraphobia, social anxiety, MDD and BPAD type II, and was admitted on 09/11/22 17:43 on a 201 voluntary commitment following suicide attempt. Chief Complaint "I'm good". Review of Systems Sleep Information Total Hours of Sleep: 9 Meal Information Percent Meal Consumed - Breakfast: 100 Percent Meal Consumed - Lunch: 90 Percent Meal Consumed - Dinner: 90 Subjective Subjective Patient was seen & assessed and interval progress reviewed with treatment team nursing and social work. Still had trouble sleeping last night, didn't notice much benefit from trazodone. Finding gabapentin helpful for anxiety and also lessening her tremor. Has only been able to get propranolol in the evenings due to low BP in the morning. She likes it as helping with anxiety and tremor and hasn't felt lightheadedness or dizziness after taking it in the evenings. No side effects from venlafaxine, feels this is helping. Denies SI. Had a good family meeting with her grandmother. Looking forward to having more structure in her day with [facility] and hoping she may also meet some sober friends this way. Physical Exam Psychiatric Orientation: alert and oriented x 3 Apperance: appropriately dressed and appropriately groomed Eye Contact: good eye contact Motor Behavior: no abnormal motor movements Speech: + abnormal rate/rhythm/volume of speech (soft volume) Affect: + constricted affect (but with some smiles) Mood: + depressed mood and + anxious mood Thought Process: goal directed thought process Thought Content: reality based without delusions Suicidal Thoughts: denies suicidal thoughts, denies suicidal plan and denies suicidal intent Homicidal Thoughts: denies homicidal thoughts Hallucinations: no auditory hallucinations and no visual hallucinations Cognition: recent memory grossly intact, remote memory grossly intact, attention grossly intact and language grossly intact Estimated Intelligence: consistent with education level Insight: + fair insight Judgment: + fair judgement Vital Signs (Past 24 Hours) Last Vital Signs Temp 36.6 C 09/15/22 06:38 Pulse 66 09/15/22 06:39 Resp 16 09/15/22 06:38 BP 95/62 L 09/15/22 06:39 Pulse Ox 97 09/14/22 20:44 O2 Del Method Room Air 09/14/22 20:44 Results & Data ([facility]) Current Inpatient Medications Current Inpatient Medications: Current Inpatient Medications Acetaminophen (Acetaminophen 325 Mg Tab) 650 mg PO Q4H PRN PRN Reason: Headache or Minor Fever Stop: 10/11/22 15:53 Al Hydrox/Mg Hydrox/Simethicone (Aluminum/Magnesium Susp 30 Ml Udc) 30 ml PO Q4H PRN PRN Reason: GI Upset Stop: 10/11/22 15:53 Aripiprazole (Aripiprazole 10 Mg Tab) 10 mg PO HS ELIZABETH Stop: 10/11/22 21:59 Last Admin: 09/14/22 20:55 Dose: 10 mg Bismuth Subsalicylate (Bismuth Subsalicylate Liqd 236 Ml) 15 ml PO PRN PRN PRN Reason: Loose Stool Stop: 10/11/22 15:53 Clonazepam (Clonazepam 0.5 Mg Tab) 0.5 mg PO DAILY PRN PRN Reason: panic attack Stop: 10/11/22 18:48 Gabapentin (Gabapentin 100 Mg Cap) 100 mg PO TID PRN PRN Reason: Anxiety Stop: 10/12/22 13:59 Last Admin: 09/15/22 12:46 Dose: 100 mg Hydroxyzine HCl (Hydroxyzine Hcl 25 Mg Tab) 50 mg PO HSZ PRN PRN Reason: Insomnia Stop: 10/11/22 15:53 Last Admin: 09/13/22 22:19 Dose: 50 mg Hydroxyzine HCl (Hydroxyzine Hcl 25 Mg Tab) 25 mg PO Q4H PRN PRN Reason: Anxiety Stop: 10/11/22 15:53 Magnesium Hydroxide (Magnesium Hydroxide Susp 30 Ml Udc) 30 ml PO DAILY PRN PRN Reason: Constipation Stop: 10/11/22 15:53 Last Admin: 09/14/22 18:19 Dose: 30 ml Miscellaneous (Remove Nicoderm Patch) 1 each N/A DAILY@[id number] [facility] Stop: 10/12/22 08:58 Last Admin: 09/15/22 09:12 Dose: 1 each Nicotine (Nicotine 14 Mg/24 Hr Patch) 14 mg TD QAM ELIZABETH Stop: 10/11/22 19:04 Last Admin: 09/15/22 09:12 Dose: 14 mg Nicotine Polacrilex (Nicotine Polacrilex 2 Mg Gum) 2 piece MT PRN PRN PRN Reason: tobacco withdrawal Stop: 10/11/22 17:11 Last Admin: 09/15/22 13:06 Dose: 2 piece Phenazopyridine HCl (Phenazopyridine Hcl 200 Mg Tab) 200 mg PO TID PRN PRN Reason: bladder pain Stop: 10/11/22 18:09 Propranolol HCl (Propranolol Hcl 10 Mg Tab) 10 mg PO BID [facility] Stop: 10/13/22 20:59 Last Admin: 09/15/22 09:12 Dose: Not Given Sodium Chloride (Sodium Chloride 0.65% Na Soln 45 Ml ([place])) 1 - 2 sprays NA PRN PRN PRN Reason: Nasal Dryness/Congestion Stop: 10/11/22 15:53 Trazodone HCl (Trazodone Hcl 50 Mg Tab) 50 mg PO HS PRN PRN Reason: Insomnia Stop: 10/14/22 21:59 Last Admin: 09/14/22 20:55 Dose: 50 mg Venlafaxine HCl (Venlafaxine Hcl Xr 150 Mg Capxr) 150 mg PO QAM ELIZABETH Stop: 10/13/22 08:59 Last Admin: 09/15/22 09:11 Dose: 150 mg Mental Health & Subst Abuse Tx Psychiatrist Name of Psychiatrist: [facility] - [facility] Psychiatrist's Date Of Appointment With Psychiatric Provider: 09/23/22 Time of Appointment with Psychiatrist: 10:00 AM Psychiatric Appointment Comment: [address] [place], [place] Therapist Name of Therapist: [facility] Therapist's Date of Therapist Appointment: 09/21/22 Time of Therapist Appointment: 10:00 AM Therapy Appointment Comment: Please resume your normal schedule. Chinese Medicine Practitioner Name of Chinese Medicine Practitioner: [facility] Phone Number for Chinese Medicine Practitioner: [phone] Case Management Appointment Comment: A rifle case repairer will follow-up with you directly. Post Discharge Appointments Primary Care Physician Name Of Family Doctor/PCP: [facility] - [facility] Date of Future Appointment with PCP: 09/21/22 Time of Appointment with PCP: 2:05 PM Provider Appointment Comment: [address], [place] [address] Contact Information Discharge Discharge Address: [facility] [place], [place] [address]
[2022-09-15] MEDS ORDERED: traZODone HCL 100 MG TAB PO PRN (15:20)
[2022-09-15] MEDS: ARIPiprazole 10 MG TAB PO SCH (21:15)
[2022-09-15] MEDS ORDERED: PROPRANOLOL HCL 10 MG TAB PO SCH (22:00)
--- NOTE | 2022-09-16 09:10 | Discharge Summary ---
Date of Service September 16, 2022 History of Present Illness Darlene presented to the ED following suicide attempt via ingestion of 5 tabs of 2mg clonazepam (10mg total dose) and was admitted medically for bradycardia and hypotension. She is now medically stable and presents for psychiatric admission. She identifies worsening depression and recent psychosocial stressors including stressful work dynamics, adjusting to living with her grandparents, comparing her life to her friends success, feeling like a failure, strained relationship with her mother, and history of trauma as the reasons for her suicide attempt. She endorses depressive symptoms including anhedonia, tearfulness, self-guilt, hopelessness, helplessness, decreased energy, decreased motivation, increased sleep of staying in bed for up to 3 days at a time ~10 hours per day at minimum, decreased appetite. She endorses anxiety symptoms including excessive worry, restlessness, fatigue, muscle tension in shoulders/neck/headaches, only rare panic attacks but recently had a few panic attacks. She endorse PTSD symptoms including intrusive memories/flashbacks, avoidance, mood changes, hypervigilance, emotional lability, but no history of night terrors. She describes a history of going 5 days without sleeping or only sleeping about 20 minutes and in past would re-arrange all the cabinets in the kitchen at 3am. Most recently this summer while at [facility] she stayed up for multiple days living off Red Bull and nicotine and would drive around early in the morning. Recalls her mood being very elevated and happy during this time, more outgoing, more upbeat, but also jittery and it gets uncomfortable. Recalls spending a lot of money by ordering a lot of jewelry online during the last episode, and also ordered piercing materials and pierced her nose three times. She is currently prescribed psychiatric medications of sertraline 200mg daily (has not been helping), Wellbutrin XL 300mg daily (minimal benefit, difficult to tell because at same time as other medications), Klonopin 2mg HS (but has been taking as 1mg BID), Vivitrol IM monthly, Buspar 30mg daily, Abilify 10mg HS (seems to help but causes akathisia), Cogentin, Depakote DR 250mg BID (they've been tapering this), Prazosin 4mg HS, Propranolol 10mg daily. Psychiatric ROS notable for history of auditory hallucinations of hearing vague voices mumbling but no other history of psychosis. History of self-harm via cutting and burning last about 2 months ago. Physical Exam Vital Signs (Past 24 Hours) Last Vital Signs Temp 36.5 C 09/16/22 06:28 Pulse 75 09/16/22 06:30 Resp 18 09/16/22 06:28 BP 94/66 L 09/16/22 06:30 Pulse Ox 97 09/14/22 20:44 O2 Del Method Room Air 09/14/22 20:44 See admission H&P and DOD summary. Principal Diagnosis Bipolar Affective Disorder Type II, current major depressive episode Psychiatric Data See daily stay summary. In short, patient was engaged with the social/therapeutic milieu of the unit, safety was maintained and the patient was cooperative with care. Medication changes included discontinuation of Sertraline, Depakote, Buspar and Cogentin, reduction in Klonopin to 0.5mg daily prn for panic attacks (and she did not require any prn doses during admission), continuation of Abilify 10mg HS for mood stabilization and initiation of venlafaxine ER for depression and anxiety and trazodone 100mg HS prn for insomnia and they tolerated this well. Baseline labs of fasting glucose, fasting lipid profile, and weight were preformed and within normal limits. Recommend repeat weight in one month. Recommend repeat fasting glucose, HbA1c and fasting lipid profile every 12 weeks and then annually. If symptoms arise recommend checking BP, EKG, prolactin level as clinically indicated or relevant. A family session was held and safety plan was completed prior to discharge. She actively and insightfully participated in safety planning and in discussions about ways to seek support and recognizing warning signs and utilizing coping skills. Reviewed mobile apps that could be used for additional ways to have their safety plan and contacts easily available should thoughts of SI re-emerge in the future. Reviewed importance of seeking emergency care should SI intensify, worsen or should they feel unsafe in the future which they agree to do. On the day of discharge she stated her mood was "good and excited" and remained future-oriented including seeing her dog, spending time with her friend, going to the gym, making dinner tonight, having regular meals with her grandma, seeing her boyfriend tomorrow, having more day to day structure and engaging in aftercare appointments for psychiatry, therapy, new dual diagnosis IOP, and case management. Day of Discharge Assessment Today the patient voices readiness for discharge. They note improvement in mood and anxiety. They deny thoughts of harm to self or others. Thoughts are organized and they are clinically improved from admission. There is no evidence of psychosis. They improved in the hospital with support and medication adjustments. They agree to take medications as prescribed and keep follow-up appointments. At the time of the discharge they are deemed to be stable and appropriate for outpatient level of care. They are not deemed to be at imminent risk of harm to self or others. They are aware of emergency and crisis services. Knows to call 911 or go to nearest emergency care center if in a crisis which cannot be handled as an outpatient. Transition of Care Transition Of Care Record: was reviewed with the patient Advance Directives Advance Directives Information Provided: Yes Advance Directives: No Mental Health Advance Directive: No Advance Directives on File: No Living Will: No Power of Hydroelectric Plant Electrical Engineer: No Advance Directives Reason:: Declines as Mental Health Visit. Suicide Risk Level Suicide Risk Level Comments: Acute risk is low given improvement in mood and denial of SI, lack of access to lethal means, plan to avoid substance use, improvement in sleep, hopefulness. Chronic risk is moderate given some non-modifiable risk factors: psychiatric co- morbid diagnoses, periods of impulsivity, prior attempt, hx self-harm, emotional reactivity, prior psychiatric hospitalizations, mood disorder, childhood trauma, family history of by suicide but also with protective factors including: employed, good social support, sense of responsibility to family and social supports, outpatient care in place, positive coping skills, positive problem solving, capacity to establish therapeutic alliance, willingness to engage with treatment, and capacity for self-observation. Counseled on ways to reduce acute and chronic risk including engaging with outpatient providers, using safety plan if needed, utilizing supports, taking medication, and using coping skills. Modifiable risk factors of SI, anxiety and depression were addressed during hospitalization through development of new coping skills, family meeting, safety planning, and medication adjustments. Risk Factors Assessment Male: No : Yes Do You Have Access To A Gun?: No Mental Health Diagnoses: Yes Substance Use Disorders: Yes Previous Attempt: Yes Family History of Suicide: Yes Previous Psychiatric Hospitalization: Yes Hopelessness: No Protective Factors Assessment Employed: Yes Stable Relationships: Yes Supportive Family: Yes (grandparents, dad) Good Rapport with Provider: Yes Discharge Data Lab Results 09/13/22 07:11 Fasting Glucose 82 Triglycerides 89 Cholesterol 172 LDL Cholesterol, Calc 105 VLDL Cholesterol, Calc 18 HDL Cholesterol 49 Cholesterol/HDL Ratio 3.5 Hospital Course (1) Bipolar 2 disorder, major depressive episode: (2) Depression with suicidal ideation: (3) Intentional benzodiazepine overdose: (4) Post traumatic stress disorder (PTSD): (5) Generalized anxiety disorder with panic attacks: (6) Alcohol use disorder, severe, in early remission, dependence: (7) Hypotension: (8) Social anxiety disorder: Plan 09/16/2022: Sleep significantly improved on higher dose of trazodone. Mood stable and improved. 09/15/2022: Increase trazodone to 100mg HS prn. Decrease propranolol to 10mg HS (as BP consistently too low in AM for AM dose). Continue abilify and venlafaxine and gabapentin prn. 09/14/2022: Continue with abilify 10mg HS. Continue venlafaxine ER 150mg daily. Discontinue sertraline. Start trazodone 50mg HS prn for insomnia. 09/13/2022: Increase propranolol to 10mg BID. Continue with abilify. Decrease sertraline to 25mg daily and increased venlafaxine ER to 150mg daily. Has gabapentin 100mg TID prn available for anxiety and Klonopin 0.5mg prn for panic attack. 09/12/2022: The patient was admitted to the [facility]) on q15 min checks (behavioral with suicide precautions) for safety. The patient will participate in group, recreational, and milieu therapies and will be offered additional individual and family sessions as clinically appropriate. -Continue cross-taper from sertraline to venlafaxine ER -Continue Abilify 10mg HS -Discontinue Depakote -Discontinue Buspar -Discontinue Cogentin -Continue propranolol 10mg daily for akathisia -Start gabapentin 100mg TID prn for nerve pain/anxiety -Decrease Klonopin to 0.5mg daily prn for severe panic attack Mental Health & Subst Abuse Tx Psychiatrist Name of Psychiatrist: Zakia Nassar Psychiatrist's Date Of Appointment With Psychiatric Provider: 09/23/22 Time of Appointment with Psychiatrist: 10:00 AM Psychiatric Appointment Comment: [address] [place], [place] Therapist Name of Therapist: [facility] Therapist's Date of Therapist Appointment: 09/21/22 Time of Therapist Appointment: 10:00 AM Therapy Appointment Comment: Please resume your normal schedule. Design Engineer Agricultural Equipment Name of Design Engineer Agricultural Equipment: [facility] Phone Number for Design Engineer Agricultural Equipment: [phone] Case Management Appointment Comment: A outpatient case manager will follow-up with you directly. Post Discharge Appointments Primary Care Physician Name Of Family Doctor/PCP: [facility] - [facility] Date of Future Appointment with PCP: 09/21/22 Time of Appointment with PCP: 2:05 PM Provider Appointment Comment: [address], [place] [address] Other #1: Name of Aftercare Appointment: [facility] Phone Number of Aftercare Appointment: Date of Aftercare Appointment: 09/17/22 Time of Aftercare Appointment: 4:00 PM Aftercare Appointment Comment: This group is virtual. Release of Information Aftercare Appointment: Obtained, Reviewed and Signed #2: Name of Aftercare Appointment: [facility] Phone Number of Aftercare Appointment: [phone] Date of Aftercare Appointment: 09/24/22 Time of Aftercare Appointment: 9:30 AM Aftercare Appointment Comment: [address], [address], [place] [address] Release of Information Aftercare Appointment: Obtained, Reviewed and Signed Contact Information Discharge Discharge Address: [facility] [address], [place], [place] [address] Discharge Plan Discharge Items Patient Disposition: Home - Self-Care Reason For Visit: MDD Discharge Diagnosis: Bipolar Affective Disorder Type II, current major depressive episode Activity: Resume your previous activity Non-emergency contact: Primary Care Provider, Psychiatrist, Therapist and Courier Driver Call non-emergency contact if: you have any medication questions and your symptoms worsen Follow-up/Referrals: [facility] [Outside] - 09/24/22 9:30 am PCP,NO [Primary Care Provider] - Diet: Regular Addtl Attending Provider Instructions: Optional mobile apps we discussed: -Suicide safety plan -Virtual Hope Box -Panic Environmental Change Analyst SPECIAL CARE INSTRUCTIONS: 1. Follow through with your scheduled aftercare appointments. If unable to keep an appointment, please call to reschedule. 2. Take your medication only as prescribed. Medication should not be changed or stopped without the approval of your doctor. In the event of worsening symptoms or concerns about side effects, contact your doctor immediately. 3. Utilize new healthy coping skills, anger management skills, and stress management skills learned during your hospitalization. Journal feelings and process them with a support person. Identify stressors or situations that may result in relapse, deterioration or inappropriate behaviors and develop a plan to deal with those issues. 4. If your coping skills are ineffective and you are in crisis, contact your outpatient providers for direction. If unable to reach your providers, please call the [facility] CRISIS LINE AT , go to the [facility] walk-in center at [address] [place] [address] [facility], or go to the closest Emergency Room. 5. Avoid alcohol and un-prescribed drugs. 6. You have been provided with the Mental Health Advance Directives Pamphlet for your review. 7. Your condition is stable for discharge to outpatient level of care, but recovery is an ongoing process. Ifthoughts to harm yourself or others return, follow the safety plan developed during your stay. Planning for a safe return home includes securing weapons. Our treatment team recommends weaponsbe removed from the home until your outpatient provider reassesses your progress. In rare cases where the items themselvescannot be removed, guns and ammunitionshould be secured separatelyand keys stored by a reliable personoutside of the home. If you were admitted on an involuntary commitment, the police or other legal authorities may be involved in this process. AFTERCARE APPOINTMENTS: * Please call your insurance company prior to your scheduled appointment to confirm your aftercare providers are covered. Take your insurance information to your appointments. WHO TO CALL AND WHEN: Medical Emergencies: For questions or emergencies related to your hospital stay, please contact the Inpatient Behavioral Health Unit at [phone]. A fleet maintenance foreman is on-call 04/01 for the Behavioral Health Unit for emergencies At any time you feel your situation is an emergency, you may also call 911 immediately. Pending Studies at Discharge: No Stand-Alone Forms: My [facility] Medications and DC Order Prescriptions: New propranolol 10 mg Tablet 10 mg PO HS 30 Days Qty: 30 0RF clonazepam 0.5 mg Tablet 0.5 mg PO DAILY PRN (Reason: panic attacks ) 30 Days Qty: 5 0RF gabapentin 100 mg Capsule 100 mg PO TID PRN (Reason: nerve pain/MURTAZA/alcohol use disorder) 30 Days Qty: 90 0RF trazodone 100 mg Tablet 100 mg PO HS PRN (Reason: insomnia) 30 Days Qty: 30 0RF venlafaxine 150 mg Capsule,Extended Release 24hr 150 mg PO QAM 30 Days Qty: 30 0RF Continued aripiprazole 10 mg tablet 10 mg QPM Vivitrol 380 mg suspension,extended rel recon 380 mg IM MONTHLY Discontinued benztropine 0.5 mg tablet 0.5 mg BID buspirone 30 mg tablet 30 mg QAM clonazepam 1 mg tablet 1 mg BID prazosin 2 mg capsule 4 mg HS propranolol 10 mg tablet 10 mg QAM sertraline 100 mg tablet 100 mg BID divalproex 250 mg tablet,delayed release (DR/EC) 250 mg PO BID phenazopyridine [Pyridium] 200 mg Tablet 200 mg PO TID PRN (Reason: pain) 2 Days Qty: 6 0RF sulfamethoxazole-trimethoprim [Bactrim DS] 800-160 mg Tablet 1 tab PO Q12 3 Days Qty: 6 0RF bupropion HCl 300 mg Tablet Extended Release 24 Hr 300 mg PO QAM Discharge Orders: Discharge Order (Routine); Ordered 09/16/22 Ordered By: Rina Abreu/Other Patient Handouts: Journaling for Mental Health Admission Data Admit Date/Time: 09/11/22 17:43 Attending Provider: Rina Brown Admit Provider: Deniz Noland Primary Care Provider: PCP,NO Other Interventions: PSY Interdisciplinary Discharge Planning Last Done: 09/16/22 11:01 Coding Level of Care Code 68426 D/C day mgmt > 30 min Diagnoses Bipolar 2 disorder, major depressive episode F31.81 Depression with suicidal ideation F32.A; R45.851 Intentional benzodiazepine overdose T42.4X2A Post traumatic stress disorder (PTSD) F43.10 Generalized anxiety disorder with panic attacks F41.1; F41.0 Alcohol use disorder, severe, in early remission, dependence F10.21 Hypotension I95.9 Social anxiety disorder F40.10 Time Spent (min) 45
[2022-09-16] MEDS: NICOTINE 14 MG/24 HR PATCH TD SCH (09:48)
[2022-09-16] MEDS: VENLAFAXINE HCL XR 150 MG CAPXR PO SCH (09:49)
[2022-09-16] MEDS: NICOTINE POLACRILEX 2 MG GUM MT PRN ×2 (09:54→13:16)
== END 2022-09-16 14:03 | disposition home or self-care (01) | DRG 885 ==
LOC: SUATTDRO 17:43 → 3S 17:50

== ENCOUNTER 2024-06-18 15:27 | Inpatient (IN) ==
--- OUTSIDE RECORDS SUMMARY | 2024-06-18 15:33 | External Medical Summary ---
Author Name Unknown Address Unknown Organization : Laboratory Report Ordering Provider Test Date Status Katharine Whitfield 02/04/2024 11:29:00 Final Observation Date Value Abnormality Reference (Units ) Status Entamoeba histolytica Ag [Presence] in Stool by Immunoassay 02/10/2024 18:44:00 NOT DETECTED Final One negative specimen does n ot rule out the
possibility of a parasitic infection.

REFERENCE RANGE: NOT DETECTED

Specimen Received d/t: 02/08/2024 00:17:00

Lab test performed by:
[facility],
[id number] [place] [address]
Kalyn Leal MD,PhD,GABI Performing Location
--- OUTSIDE RECORDS SUMMARY | 2024-06-18 15:33 | External Medical Summary | Continuity of Care Document ---
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 Name Role Phone Jose Antonio Gross Primary Care Physician [phone] Encounter [facility] [id number] Date(s): 05/04/24 - 05/04/[address], [facility] [address] [place] [address] [phone] Encounter Diagnosis Fatigue(Discharge Diagnosis) - 05/04/24 CELESTINE positive(Discharge Diagnosis) - 05/04/24 Discharge Disposition: Home or Self Care Attending Physician: MD Gross Michael P Referring Physician: MD Gross Michael P Allergies, Adverse Reactions, Alerts No Known Medication Allergies Assessment and Plan Extracted from: Title:Office Visit Note Author:MD Renato, Sage aeoswaldo P Date:05/04/24 1.Fatigue 2.CELESTINE positive This is a 24-year-old female with a significant past medical history of depression and positive CELESTINE who presents forchronic,ongoingpolyasymmetric polyarticular joint discomfort and fatigue. Previous workup was largely unrevealing forpotential connective tissue disorder, though her symptomshave increasedand I do think it isimportant that we initiatefurther workup at this time. Additional rheumatologic labs ordered now. Will plan to follow-up pending laboratory results. I have spent 37minutes in face to face interaction regarding review of ongoing medical conditions, discussion and counseling regarding diagnostic testing, discussion and counseling regarding treatment recommendations, discussion and counseling regarding management recommendations and non face to face time for chart review and documentation. Immunizations Given and Recorded Vaccine Date Status Refusal Reason tetanus/diphtheria/pertuss, acel (Tdap) 03/08/21 G iven tetanus/diphtheria/pertuss, acel (Tdap) 1 12/25/09 Recorded SARS-CoV-2 (COVID-19) mRNA BNT-162b2 vax 2 08/24/20 Recorded SARS-CoV-2 (COVID-19) mRNA BNT-162b2 vax 3 08/03/20 Recorded hepatitis A pediatric vaccine 4 03/22/15 Recorded hepatitis A pediatric vaccine 5 02/21/14 Recorded meningococcal conjugate vaccine 6 02/21/14 Recorde d meningococcal conjugate vaccine 7 12/25/09 Recorde d human papillomavirus vaccine 8 11/28/10 Recorded human papillomavirus vaccine 9 03/24/10 Recorded human papillomavirus vaccine 10 12/25/09 Recorded influenza virus vaccine, H1N1 11 04/16/09 Recorded varicella virus vaccine 12 09/08/07 Recorded varicella virus vaccine 13 05/27/99 Recorded poliovirus vaccine, inactivated 14 02/26/03 Record ed poliovirus vaccine, inactivated 15 02/25/99 Record ed poliovirus vaccine, inactivated 16 98 Record ed poliovirus vaccine, inactivated 17 98 Record ed measles/mumps/rubella virus vaccine 18 02/26/03 Re corded measles/mumps/rubella virus vaccine 19 02/25/99 Re corded diphtheria/tetanus/pertuss, acel (DTaP) 20 02/26/03 Recorded diphtheria/tetanus/pertuss, acel (DTaP) 21 05/27/99 Recorded diphtheria/tetanus/pertuss, acel (DTaP) 22 98 Recorded diphtheria/tetanus/pertuss, acel (DTaP) 23 98 Recorded diphtheria/tetanus/pertuss, acel (DTaP) 24 98 Recorded haemophilus b Vaccine Unspecified 02/25/99 Recorde d haemophilus b Vaccine Unspecified 98 Recorde d haemophilus b Vaccine Unspecified 98 Recorde d haemophilus b Vaccine Unspecified 98 Recorde d hepatitis B pediatric vaccine 25 98 Recorded hepatitis B pediatric vaccine 26 98 Recorded hepatitis B pediatric vaccine 27 98 Recorded 1Result Comment: 2021-03-08: Historical information-source unspecified 2Result Comment: 2021-03-08: Historical information-source unspecified 3Result Comment: 2021-03-08: Historical information-source unspecified 4Result Comment: 2021-03-08: Historical information-source unspecified 5Result Comment: 2021-03-08: Historical information-source unspecified 6Result Comment: 2021-03-08: Historical information-source unspecified 7Result Comment: 2021-03-08: Historical information-source unspecified 8Result Comment: 2021-03-08: Historical information-source unspecified 9Result Comment: 2021-03-08: Historical information-source unspecified 10Result Comment: 2021-03-08: Historical information-source unspecified 11Result Comment: 2021-03-08: Historical information-source unspecified 12Result Comment: 2021-03-08: Historical information-source unspecified 13Result Comment: 2021-03-08: Historical information-source unspecified 14Result Comment: 2021-03-08: Historical information-source unspecified 15Result Comment: 2021-03-08: Historical information-source unspecified 16Result Comment: 2021-03-08: Historical information-source unspecified 17Result Comment: 2021-03-08: Historical information-source unspecified 18Result Comment: 2021-03-08: Historical information-source unspecified 19Result Comment: 2021-03-08: Historical information-source unspecified 20Result Comment: 2021-03-08: Historical information-source unspecified 21Result Comment: 2021-03-08: Historical information-source unspecified 22Result Comment: 2021-03-08: Historical information-source unspecified 23Result Comment: 2021-03-08: Historical information-source unspecified 24Result Comment: 2021-03-08: Historical information-source unspecified 25Result Comment: 2021-03-08: Historical information-source unspecified 26Result Comment: 2021-03-08: Historical information-source unspecified 27Result Comment: 2021-03-08: Historical information-source unspecified Medications ARIPiprazole 20 mg oral tablet Start: 01/20/24 12:09:00 PM EDT, 2 tab, PO, Daily Start Date: 01/20/24 Status: Ordered FLUoxetine 40 mg oral capsule Start: 01/20/24 12:09:00 PM EDT, 2 cap, PO, Daily, Start Date: 01/20/24 Status: Ordered gabapentin 100 mg oral capsule Start: 05/04/24 12:51:00 PM EST, 2 cap, PO, bid Start Date: 05/04/24 Status: Ordered hydrOXYzine hydrochloride 50 mg oral tablet Start: 01/20/24 12:09:00 PM EDT, 1 tab, PO, Daily, PRN: as needed for anxiety Start Date: 01/20/24 Status: Ordered prazosin 2 mg oral capsule Start: 01/20/24 11:13:00 AM EDT Start Date: 01/20/24 Status: Ordered Qelbree 200 mg oral capsule, extended release Start: 05/04/24 12:51:00 PM EST Start Date: 05/04/24 Status: Ordered Vestura 3 mg-0.02 mg oral tablet Start: 01/20/24 11:13:00 AM EDT Start Date: 01/20/24 Status: Ordered Mental Status 05/04/24 Barriers to Learning one year None evide nt Mandatory Health Literacy Documentation Yes Health Literacy Communication Barriers N ever Primary Language Haitian Problem List Condition Confirmation Course Effective Dates Status H ealth Status Informant Abdominal pain in female Confirmed Active Anxiety Confirmed Active Nevus Confirmed Active Cervical lymphadenopathy Confirmed Active Depression Confirmed Active 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 Right hip pain Confirmed Active Hip pain Confirmed Active Recurrent UTI Confirmed Active Tobacco user Confirmed Active Diagnosis Diagnosis Type Effective Dates Health Status Cl inical Service Informant Fatigue Discharge Diagnosis 05/04/24 Non-Specified CELESTINE positive Discharge Diagnosis 05/04/24 Non-Specified Procedures Procedure Date Related Diagnosis Body Site Status HEPATOBIL SYST IMAGE W/DRUG, hida scan 1 02/24/21 Completed Ultrasound 2 02/05/21 Completed Colonoscopy 3 01/17/21 Completed Esophagogastroduodenoscopy 4, 5 01/17/21 Completed Toe X-ray 6 06/08/18 Completed CXR - Chest X-ray 7 08/19/16 Compl eted Frenectomy of lip 2014 Complet ed 1Impression: No evidence for acute cholecystitis. Minimally diminished gallbladder ejection fraction of 29%. 2Unremarkable sonographic evaluation of the abdomen. 3COLO to TI normal. 4Pathology results: Duodenum, biopsy: no pathologic changes. Stomac, biopsy: MIld chronic gastritis with foveolar hyperplasia. F/U with PCP 5EGD normal exam, antrum and 2n duod bx, 6No acute osseous injury 7No active disease in the chest. Vital Signs Most recent to oldest [Reference Range]: 1 Height 160 cm (05/04/24 12:55 PM) Patient Weight 79.0 kg (05/04/24 12:55 PM) Body Mass Index 30.86 kg/m2 (05/04/24 12:55 PM) Temperature [36.5-37.9 DegC] 36.2 DegC *LOW* (05/04/24 12:54 PM) Blood Pressure 98/60mmHg (05/04/24 12:57 PM) Social History Social History Type Response Tobacco Current every day sm okscar, Smokeless tobacco use: nicotine vape. Smoking Status Former Smoker, quit within 31 days - 1 yr Sex Female Sex Representation Female (finding) Medicine Outpt Note * MD Renato, Jose Antonio P: PERFORM Event Display: Medicine Outpt Note Authored Date: Chief Complaint Establish care. wants labs drawn. not feeling well History of Present Illness Darlene Dennis grabiel 24 year old female who presents to establish care with or and follow up of her chronic medical conditions. He was previously seen through the [facility] system. She established with Janine Sloan. Her onset of symptoms began at the age of 14. She hadassociated hip pain and fatigue. She ultimately begana workup in 2019for rheumatologicdisorders. Through this workup, she was seen byrheumatology for positive CELESTINE. Additional laboratory workupwas largely unrevealing.Her symptoms have persisted. They consist ofbilateral hip pain, bilateral knee pain,low back pain,some morning stiffnessin her hands and feet,Raynaud's phenomenon in her hands, fatigue, malaise. No joint swelling. No other associated symptoms. She will utilize APAP/NSAIDas neededfor discomfort which helps out somewhat. Has not previously been on any otherdisease modifying agents orprednisone. Currently, her symptoms areelevated, though notmost severe. Past Medical History: #Recurrent UTIs: Ongoing, evaluated by [facility]; cystoscopy performed (03/03/2021) without significant findings #Positive CELESTINE: Associated with polyarticular joint pain and fatigue; evaluated by [facility] (06/2021) #Tobacco use: Using vapes with nicotine #Depression: followed by psych; previous hx ofsuicidality; followed by [facility] Review of Systems As per HPI Physical Exam Vitals & Measurements T:36.2C BP:98/60 SpO2:97% HT:160cm WT:79.0kg WT:79.000kg(Dosing) BMI:30.86 PHQ2 Data(Data Documented on:05/04/2024 12:52) Emotional health assessment NEGATIVE GEN: Well developed, well nourished, no acute distress HEENT: NCAT, MMM, EOMI, PERRL CV: RRR, no murmurs, normal S1 and S2 LUNG: Clear to auscultation bilaterally ABD: Nondistended EXT: No c/c/e MSK: Strength in the upper and lower extremities is preserved; no joint swelling;minor tendernessto palpation of the hips bilaterally, knees bilaterally NEURO: AxOx3, moving all extremities; no focal neurologic deficits; CN II-XII grossly intact Assessment/Plan 1.Fatigue 2.CELESTINE positive This is a 24-year-old female with a significant past medical history of depression and positive ANAwho presents forchronic,ongoingpolyasymmetric polyarticular joint discomfort and fatigue.Previous workup was largely unrevealing forpotential connective tissue disorder, though her symptomshave increasedand I do think it isimportant that we initiatefurther workup at this time. Additional rheumatologic labs ordered now. Will plan to follow-up pending laboratory results. I have spent 37minutes in face to face interaction regarding review of ongoing medical conditions, discussion and counseling regarding diagnostic testing, discussion and counseling regarding treatment recommendations, discussion and counseling regarding management recommendations and non face to face time for chart review and documentation. Problem List/Past Medical History Ongoing Abdominal pain in female Anxiety Cervical lymphadenopathy Depression Disorder of both ear lobes Hip pain Nevus Recurrent UTI Right hip pain Tobacco user Resolved Annual visit for general adult medical examination without abnormal findings Procedure/Surgical History HEPATOBIL SYST IMAGE W/DRUG, hida scan| Service Date: 02/24/2021Ultrasound| Service Date: 02/05/2021olonoscopy| Service Date: 01/17/2021sophagogastroduodenoscopy| Service Date: 01/17/2021Toe X-ray| Service Date: 06/08/2018CXR - Chest X-ray| Service Date: 08/19/2016Frenectomy of lip| Service Date: 2013 Medications ARIPiprazole(ARIPiprazole 20 mg oral tablet), 40 mg= 2 tab, PO, Daily drospirenone-ethinyl estradiol(Vestura 3 mg-0.02 mg oral tablet) FLUoxetine(FLUoxetine 40 mg oral capsule), 80 mg= 2 cap, PO, Daily gabapentin(gabapentin 100 mg oral capsule), 200 mg= 2 cap, PO, bid hydrOXYzine(hydrOXYzine hydrochloride 50 mg oral tablet), 50 mg= 1 tab, PO, Daily, PRN prazosin(prazosin 2 mg oral capsule) viloxazine(Qelbree 200 mg oral capsule, extended release) Allergies No Known Medication Allergies Social History Smoking Status Former Smoker, quit within 31 days - 1 yr Alcohol Use:Current Frequency:1-2 times per month Sexual Current partners:1 Uses condoms:Yes Substance Abuse Use:Current Type:Marijuana Frequency:Daily Tobacco Use:Current every day smoker Smokeless tobacco use:nicotine vape Family History Blood clot: Unknown. Skin cancer: Unknown. Type II diabetes mellitus: MGF and PGF. Health Status Family Member(s) Immunizations Vaccine Date Status tetanus/diphtheria/pertuss, acel (Tdap) 03/08/2021 Given SARS-CoV-2 (COVID-19) mRNA BNT-162b2 vax 08/24/2020 Recorded Comments : 2021-03-08: Historical information-source unspecified SARS-CoV-2 (COVID-19) mRNA BNT-162b2 vax 08/03/2020 Recorded Comments : 2021-03-08: Historical information-source unspecified hepatitis A pediatric vaccine 03/22/2015 Recorded Comments : 2021-03-08: Historical information-source unspecified meningococcal conjugate vaccine 02/21/2014 Recorded Comments : 2021-03-08: Historical information-source unspecified hepatitis A pediatric vaccine 02/21/2014 Recorded Comments : 2021-03-08: Historical information-source unspecified human papillomavirus vaccine 11/28/2010 Recorded Comments : 2021-03-08: Historical information-source unspecified human papillomavirus vaccine 03/24/2010 Recorded Comments : 2021-03-08: Historical information-source unspecified tetanus/diphtheria/pertuss, acel (Tdap) 12/25/2009 Recorded Comments : 2021-03-08: Historical information-source unspecified meningococcal conjugate vaccine 12/25/2009 Recorded Comments : 2021-03-08: Historical information-source unspecified human papillomavirus vaccine 12/25/2009 Recorded Comments : 2021-03-08: Historical information-source unspecified influenza virus vaccine, H1N1 04/16/2009 Recorded Comments : 2021-03-08: Historical information-source unspecified varicella virus vaccine 09/08/2007 Recorded Comments : 2021-03-08: Historical information-source unspecified poliovirus vaccine, inactivated 02/26/2003 Recorded Comments : 2021-03-08: Historical information-source unspecified measles/mumps/rubella virus vaccine 02/26/2003 Recorded Comments : 2021-03-08: Historical information-source unspecified diphtheria/tetanus/pertuss, acel (DTaP) 02/26/2003 Recorded Comments : 2021-03-08: Historical information-source unspecified varicella virus vaccine 05/27/1999 Recorded Comments : 2021-03-08: Historical information-source unspecified diphtheria/tetanus/pertuss, acel (DTaP) 05/27/1999 Recorded Comments : 2021-03-08: Historical information-source unspecified poliovirus vaccine, inactivated 02/25/1999 Recorded Comments : 2021-03-08: Historical information-source unspecified measles/mumps/rubella virus vaccine 02/25/1999 Recorded Comments : 2021-03-08: Historical information-source unspecified haemophilus b Vaccine Unspecified 02/25/1999 Recorded hepatitis B pediatric vaccine 1998 Recorded Comments : 2021-03-08: Historical information-source unspecified diphtheria/tetanus/pertuss, acel (DTaP) 1998 Recorded Comments : 2021-03-08: Historical information-source unspecified haemophilus b Vaccine Unspecified 1998 Recorded poliovirus vaccine, inactivated 1998 Recorded Comments : 2021-03-08: Historical information-source unspecified diphtheria/tetanus/pertuss, acel (DTaP) 1998 Recorded Comments : 2021-03-08: Historical information-source unspecified haemophilus b Vaccine Unspecified 1998 Recorded poliovirus vaccine, inactivated 1998 Recorded Comments : 2021-03-08: Historical information-source unspecified hepatitis B pediatric vaccine 1998 Recorded Comments : 2021-03-08: Historical information-source unspecified diphtheria/tetanus/pertuss, acel (DTaP) 1998 Recorded Comments : 2021-03-08: Historical information-source unspecified haemophilus b Vaccine Unspecified 1998 Recorded hepatitis B pediatric vaccine 1998 Recorded Comments : 2021-03-08: Historical information-source unspecified Recommendations Health Maintenance Pending(in the next year) OverDue Adult Influenza Vaccine due12/12/23and every 1year Due Adult COVID-19 Vaccination due05/04/24Unknown Frequency Adult Folic Acid Supplementation due05/04/24and every 3year Adult Social Determinants of Health Screening due05/04/24Unknown Frequency Hepatitis C Screening due05/04/24One-time only Lipid Screening due05/04/24Unknown Frequency Satisfied(in the past 1 year) Satisfied Body Mass Index on05/04/24.Satisfied by ANJELICA Barr Carli Electronic Signature on File Electronically Reviewed/Signed by: Jose Antonio Gross MD Author Signature Dt/Tm:05/04/2024 01:38 PM Division of Internal Medicine MPM Patient Care team information Care Team Personnel Name: MD Renato, Jose Antonio Harrell Position: Physician - Internal Med Member Role: Primary Care Provider Address: [address] [place] [address] Care Team Related Persons Name: SHANNA WOODRUFF"
--- OUTSIDE RECORDS SUMMARY | 2024-06-18 15:33 | External Medical Summary ---
Author Name Unknown Address Unknown Organization : Laboratory Report Ordering Provider Test Date Status Katharine Whitfield 02/04/2024 14:40:00 Final Observation Date Value Abnormality Reference (Units ) Status eGFR 02/05/2024 03:12:00 108 > OR = 60 (mL/min/1.73m2) Final
Specimen Received d/t: 02/04/2024 22:56:00

Lab test performed by:
[facility], [facility]
[address]
[place] [address]
Neto Rodriguez MD Sodium [Moles/volume] in Ser um or Plasma 02/05/2024 03:12:00 139 135-146 (mmol/L) Shea l
Specimen Received d/t: 02/04/2024 22:56:00

Lab test performed by:
[facility], [facility]
[address]
[place] [phone]
Neto Rodriguez MD Protein [Mass/volume] in Ser um or Plasma 02/05/2024 03:12:00 6.7 6.1-8.1 (g/dL) Final
Specimen Received d/t: 02/04/2024 22:56:00

Lab test performed by:
[facility] [place], [facility]
[address]
[place] [phone]
Neto Rodriguez MD Alkaline phosphatase [Enzyma tic activity/volume] in Serum or Plasma 02/05/2024 03:12:00 69 31-125 (U/L) Final
Specimen Received d/t: 02/04/2024 22:56:00

Lab test performed by:
[facility], [facility]
[address]
[place] [address]
Neto Rodriguez MD Glucose [Mass/volume] in Serum or Plasma 02/05/2024 03:12:00 82 65-99 (mg/dL) Final
Fasting reference inte rval

Specimen Received d/t: 02/04/2024 22:56:00

Lab test performed by:
[facility] [place], [facility]
[address]
[place] [address]
Neto Rodriguez MD Gl[facility] 02/05/2024 03:12:00 2.7 1.9-3 .7 (g/dL (calc)) Final
Specimen Received d/t: 02/04/2024 22:56:00

Lab test performed by:
[facility] [place], [facility]
[address]
[place] [address]
Neto Rodriguez MD Chloride [Moles/volume] in S pablito or Plasma 02/05/2024 03:12:00 107 98-110 (mmol/L) Final
Specimen Received d/t: 02/04/2024 22:56:00

Lab test performed by:
[facility], [facility]
[address]
[place] [address]
Neto Rodriguez MD Alanine aminotransferase [En zymatic activity/volume] in Serum or Plasma 02/05/2024 03:12:00 22 6-29 (U/L) Final
Specimen Received d/t: 02/04/2024 22:56:00

Lab test performed by:
[facility], [facility]
[address]
[place] [address]
Neto Rodriguez MD Creatinine [Mass/volume] in Serum or Plasma 02/05/2024 03:12:00 0.78 0.50-0.96 (mg/dL) Fin al
Specimen Received d/t: 02/04/2024 22:56:00

Lab test performed by:
[facility], [facility]
[address]
[place] [address]
Neto Rodriguez MD Urea nitrogen/Creatinine [Ma ss Ratio] in Serum or Plasma 02/05/2024 03:12:00 SEE NOTE: 6-22 ((c alc)) Final Not Reported: BUN and Creati nine are within
reference range.

Specimen Received d/t: 02/04/2024 22:56:00

Lab test performed by:
[facility], [facility]
[address]
[place] [phone]
Neto Rodriguez MD [facility] 02/05/2024 03:12:00 9.2 8.6-10.2 ( mg/dL) Final
Specimen Received d/t: 02/04/2024 22:56:00

Lab test performed by:
[facility], [facility]
[address]
[place] [address]
Neto Rodriguez MD Bilirubin.total [Mass/volume ] in Serum or Plasma 02/05/2024 03:12:00 0.3 0.2-1.2 (mg/dL) Fi nal
Specimen Received d/t: 02/04/2024 22:56:00

Lab test performed by:
[facility] [place], [facility]
[address]
[place] [address]
Neto Rodriguez MD Potassium [Moles/volume] in Serum or Plasma 02/05/2024 03:12:00 4.1 3.5-5.3 (mmol/L) Shea l
Specimen Received d/t: 02/04/2024 22:56:00

Lab test performed by:
[facility], [facility]
[address]
[place] [address]
Neto Rodriguez MD Aspartate aminotransferase [ Enzymatic activity/volume] in Serum or Plasma 02/05/2024 03:12:00 26 10-30 (U/L) Final
Specimen Received d/t: 02/04/2024 22:56:00

Lab test performed by:
[facility], [facility]
[address]
[place] [address]
Neto Rodriguez MD Albumin [Mass/volume] in Ser um or Plasma 02/05/2024 03:12:00 4.0 3.6-5.1 (g/dL) Final
Specimen Received d/t: 02/04/2024 22:56:00

Lab test performed by:
[facility] [place], [facility]
[address]
[place] [address]
Neto Rodriguez MD Urea nitrogen [Mass/volume] in Serum or Plasma 02/05/2024 03:12:00 11 7-25 (mg/dL) Final
Specimen Received d/t: 02/04/2024 22:56:00

Lab test performed by:
[facility], [facility]
[address]
[place] [address]
Neto Rodriguez MD Albumin/Globulin [Mass Ratio ] in Serum or Plasma 02/05/2024 03:12:00 1.5 1.0-2.5 ((calc)) F inal
Specimen Received d/t: 02/04/2024 22:56:00

Lab test performed by:
[facility], [facility]
[address]
[place] [address]
Neto Rodriugez MD Carbon dioxide, total [Moles /volume] in Serum or Plasma 02/05/2024 03:12:00 23 20-32 (mmol/L) Fin al
Specimen Received d/t: 02/04/2024 22:56:00

Lab test performed by:
[facility], [facility]
[address]
[place] [id number]
Neto Rodriguez MD Performing Location
--- OUTSIDE RECORDS SUMMARY | 2024-06-18 15:33 | External Medical Summary ---
Author Name Unknown Address Unknown Organization : Laboratory Report Ordering Provider Test Date Status Katharine Whitfield 02/04/2024 14:40:00 Final Observation Date Value Abnormality Reference (Units ) Status Basophils [#/volume] in Blood by Automated count 02/05/2024 03:12:00 18 0-200 (cells/uL) Final
Specimen Received d/t: 02/04/2024 22:56:00

Lab test performed by:
[facility], [facility]
[address]
[place] [address]
Neto Rodriguez MD Platelet mean volume [Entiti c volume] in Blood by Amena 02/05/2024 03:12:00 10.7 7.5-12.5 (f L) Final
Specimen Received d/t: 02/04/2024 22:56:00

Lab test performed by:
[facility], [facility]
[address]
[place] [address]
Neto Rodriguez MD Basophils/100 leukocytes in Blood by Automated count 02/05/2024 03:12:00 0.3 (%) Final
Specimen Received d/t: 02/04/2024 22:56:00

Lab test performed by:
[facility], [facility]
[address]
[place] [address]
Neto Rodriguez MD Erythrocytes [#/volume] in Blood by Automated count 02/05/2024 03:12:00 4.61 3.80-5.10 (Million/uL) Final
Specimen Received d/t: 02/04/2024 22:56:00

Lab test performed by:
[facility], [facility]
[address]
[place] [address]
Neto Rodriguez MD MCHC [Mass/volume] by Automa nadir count 02/05/2024 03:12:00 33.1 32.0-36.0 (g/dL) Shea l
Specimen Received d/t: 02/04/2024 22:56:00

Lab test performed by:
[facility], [facility]
[address]
[place] [address]
Neto Rodriguez MD Lymphocytes [#/volume] in Bl ood by Automated count 02/05/2024 03:12:00 [phone] (cells /uL) Final
Specimen Received d/t: 02/04/2024 22:56:00

Lab test performed by:
[facility], [facility]
[address]
[place] [address]
Neto Rodriguez MD Lymphocytes/100 leukocytes i n Blood by Automated count 02/05/2024 03:12:00 18.5 (%) Final
Specimen Received d/t: 02/04/2024 22:56:00

Lab test performed by:
[facility], [facility]
[address]
[place] [address]
Neto Rodriguez MD Hematocrit [Volume Fraction] of Blood by Automated count 02/05/2024 03:12:00 41.7 35.0-45.0 (%) F inal
Specimen Received d/t: 02/04/2024 22:56:00

Lab test performed by:
[facility], [facility]
[address]
[place] [address]
Neto Rodriguez MD Eosinophils [#/volume] in Bl ood by Automated count 02/05/2024 03:12:00 78 15-500 (cells/uL) Final
Specimen Received d/t: 02/04/2024 22:56:00

Lab test performed by:
[facility], [facility]
[address]
[place] [address]
Neto Rodriguez MD Platelets [#/volume] in Bloo d by Automated count 02/05/2024 03:12:00 299 140-400 (Thousa nd/uL) Final
Specimen Received d/t: 02/04/2024 22:56:00

Lab test performed by:
[facility], [facility]
[address]
[place] [address]
Neto Rodriguez MD Eosinophils/100 leukocytes i n Blood by Automated count 02/05/2024 03:12:00 1.3 (%) Final
Specimen Received d/t: 02/04/2024 22:56:00

Lab test performed by:
[facility], [facility]
[address]
[place] [address]
Neto Rodriguez MD Leukocytes [#/volume] in Blo od by Automated count 02/05/2024 03:12:00 6.0 3.8-10.8 (Thous and/uL) Final
Specimen Received d/t: 02/04/2024 22:56:00

Lab test performed by:
[facility], [facility]
[address]
[place] [address]
Neto Rodriguez MD MCH [Entitic mass] by Automated count 02/05/2024 03:12:00 29 .9 27.0-33.0 (pg) Final
Specimen Received d/t: 02/04/2024 22:56:00

Lab test performed by:
[facility], [facility]
[address]
[place] [address]
Neto Rodriguez MD Neutrophils [#/volume] in Bl ood by Automated count 02/05/2024 03:12:00 4206 [phone] (cell s/uL) Final
Specimen Received d/t: 02/04/2024 22:56:00

Lab test performed by:
[facility], [facility]
[address]
[place] [address]
Neto Rodriguez MD Neutrophils/100 leukocytes i n Blood by Automated count 02/05/2024 03:12:00 70.1 (%) Final
Specimen Received d/t: 02/04/2024 22:56:00

Lab test performed by:
[facility], [facility]
[address]
[place] [address]
Neto Rodriguez MD Hemoglobin [Mass/volume] in Blood 02/05/2024 03:12:00 13.8 11.7-15.5 (g/dL) Final
Specimen Received d/t: 02/04/2024 22:56:00

Lab test performed by:
[facility], [facility]
[address]
[place] [address]
Neto Rodriguez MD Erythrocyte distribution wid th [Ratio] by Automated count 02/05/2024 03:12:00 12.5 11.0-15.0 (%) F inal
Specimen Received d/t: 02/04/2024 22:56:00

Lab test performed by:
[facility], [facility]
[address]
[place] [address]
Neto Rodriguez MD Monocytes/100 leukocytes in Blood by Automated count 02/05/2024 03:12:00 9.8 (%) Final
Specimen Received d/t: 02/04/2024 22:56:00

Lab test performed by:
[facility], [facility]
[address]
[place] [address]
Neto Rodriguez MD Monocytes [#/volume] in Bloo d by Automated count 02/05/2024 03:12:00 588 200-950 (cells/uL) Final
Specimen Received d/t: 02/04/2024 22:56:00

Lab test performed by:
[facility], [facility]
[address]
[place] [address]
Neto Rodriguez MD MCV [Entitic volume] by Auto mated count 02/05/2024 03:12:00 90.5 80.0-100.0 (fL) Final
Specimen Received d/t: 02/04/2024 22:56:00

Lab test performed by:
[facility], [facility]
[address]
[place] [address]
Neto Rodriguez MD Performing Location
--- OUTSIDE RECORDS SUMMARY | 2024-06-18 15:33 | External Medical Summary | Summary of Care ---
Author Name Unknown Organization [facility] Address [address] [place] [address] Phone [phone] Care Team Providers Care Draw String Knotter Name Role Phone Jalen Mercado MD Care Provider Reason for Visit * Reason Onset Date Comments PPD Skin Test PPD Skin Test 05/19/2024 ppd placed sd in right forearm at 1010 Encounter Details Date Type Department Care Team (Late st Contact Info) Description 05/19/2024 10:00 AM EST Immunization/ Injection [facility], [place] [address] [place] [address] College, Nurse [place] [address] [place] [address] Screening-pulmonary TB* Allergies No known active allergiesdocumented as of this encounter (statuses as of 05/19/2024) Medications FLUoxetine HCl 20 MG Oral Capsule Take 1 Capsule by mouth in the morning. Active ARIPiprazole 20 MG Oral Tablet (Abilify) Take 1 Tablet by mouth in the morning. 02/20/2022 Active Benztropine Mesylate 1 MG Oral Tablet (Cogentin) 01/12/2022 Active buPROPion HCl ER (XL) 150 MG Oral Tablet Extended Release 24 Hour (Wellbutrin XL) Take 1 Tablet by mouth in the morning. 03/11/2022 Active busPIRone HCl 30 MG Oral Tablet Take 1 Tablet by mouth in the morning and 1 Tablet before bedtime. 05/11/2022 Active clonazePAM 2 MG Oral Tablet (KlonoPIN) TAKE 1 TAB BY MOUTH AT 8 PM 06/09/2022 Active Divalproex Sodium 500 MG Oral Tablet Delayed Release (Depakote DR) take 1 tablet by mouth twice a day UNTIL FURTHER NOTICE 05/04/2022 Active Prazosin HCl 2 MG Oral Capsule (Minipress) take 1 capsule by mouth at bedtime UNTIL FURTHER NOTICE 03/31/2022 Active Sertraline HCl 100 MG Oral Tablet (Zoloft) take 2 tablets by mouth once daily UNTIL FURTHER NOTICE 04/28/2022 Active Naltrexone HCl 50 MG Oral Tablet (Revia) Take 1 Tablet by mouth in the morning. 06/18/2022 Active Propranolol HCl 10 MG Oral Tablet (Inderal) TAKE 1 TABLET BY MOUTH EVERY DAY NEEDED FOR ANXIETY 07/02/2022 Active documented as of this encounter (statuses as of 05/19/2024) Active Problems No known active problems documented as of this encounter (statuses as of 05/19/2024) Immunizations Name Administration Dates Next Due PPD 05/19/2024,06/16/2022 documented as of this encounter Social History Tobacco Use Types Packs/Day Years Used Date Smoking Tobacco: Every Day Vaporizer Smokeless Tobacco: Never Comments:Vape Alcohol Use Standard Drinks/Week Comments Never 0 (1 standard drink = 0.6 oz pur e alcohol) Utilities Answer Date Recorded Do you have trouble paying y our heating, water, or electric bill? (Adult - for ages 18 years and over) Not on file 11/30/2023 Is your family able to pay t he heat, water, or electric bill? (Household - for ages 0-17 years) Not on file 11/30/2023 Does your family have access to good internet? (Household - for ages 0-17 years) Not on file 11/30/2023 Social Connections Answer Date Recorded How often do you feel lonely or isolated from those around you? (Adult - for ages 18 years and over) Not on file 11/30/2023 Comments No Sex and Gender Information Value Date Recorded Sex Assigned at Not on file Legal Sex Female 1:44 PM EST Gender Identity Not on file Sexual Orientation Not on file documented as of this encounter Patient Instructions * Patient Instructions* Jenny Ruby LPN - 05/19/2024 10:10 AM EST PATIENT INSTRUCTIONS FOR TUBERCULOSIS TESTING Also known as: Purified Protein Derivative (PPD) IMPORTANT INFORMATION: Return to clinic on 05/21/24 after 1010 am but before 1000 am on 05/22/24 in order to have your PPD read. Whether you have active TB disease or simply test positive for TB infection, you must see a healthcare professional for evaluation and treatment. Tuberculosis (TB) is a disease that spreads through the air. It can cause serious health problems. TB is on the rise. To protect your health, get tested. Who Should Be Tested? Anyone can be exposed to TB. However, certain people are at higher risk for exposure, especially healthcare professionals, the homeless, and people coming from countries with high TB rates. People whose bodies are less able to fight off infections, such as the elderly and people with HIV and AIDS, are also more likely to get TB. If youre at risk for exposure, get tested regularly. The TB Skin Test The TB skin test tells you if the tuberculosis bacteria are in your body. Your healthcare professional places a small amount of solution under the skin with a needle to see if a reaction occurs. Keepin mind that although many people are infected with TB, very few develop TB disease. Getting Your TB Test Results Your test results will be evaluated during the next visit. In some cases, a second test may be doneto confirm results. What Do the Test Results Mean? Negative results mean you likely dont have the TB bacteria in your body. Positive results mean that you may have been infected with the TB bacteria. This doesnt necessarily mean you have active TB disease. More tests, such as chest x-rays, are needed to find out if youhave TB disease. [phone], [place] [address]. All rights reserved. This information is not intended as a substitute for professional medical care. Always follow your healthcare professional's instructions. documented in this encounter Progress Notes * Jenny Ruby LPN - 05/19/2024 10:07 AM EST Patient here for PPD administration. Patient verified by name and date of . Has patient ever had a positive PPD Screening Test? No Have you ever had a severe reaction to a PPD test? No Has patient ever had the BCG tuberculosis vaccine? No If the patient responds yes to any of the questions, they are NOT eligible for a PPD. DO NOT administer the PPD Screening Test and Notify the provider. Do you have a history of organ transplant or are you chronically immunosuppressed for any other reason? No Have you had any recent contact with someone who has TB? 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 No PPD administered per protocol in Left forearm at 1010 am on 05/19/2024. Patient instructed to returnto clinic in 48-72 hours to have test read and was informed that failure to return within this timewindow invalidates the test results. documented in this encounter Plan of Treatment Pending Results Name Type Priority Associated Diagnoses Date /Time PPD Lab Routine Screening-pulmonary TB 05/19/2024 Health Maintenance Due Date Last Done Comments Pneumococcal Vaccine: Pediat rics (0 to 5 Years) and At-Risk Patients (6 to 64 Years) (1 of 2 - PCV) 02/20/2004 DTap/Tdap Vaccines (6 - Tdap) 2009, 05/27/1999, 1998, Additional history exists Depression Screening 2010 HIV Screening 2013 Hepatitis C Screening 02/20/2016 Pap Smear 2019 COVID-19 Vaccine (3 - 2023-2 5 season) 2024 08/24/2020, 08/03/2020 Influenza Vaccine (FLU shot) (#1) 2024 Hepatitis B Vaccine Completed 1998, 1998, 1998 HPV (Gardasil) Vaccine Completed 1, 03/24/2010, 12/25/2009 MENINGOCOCCAL (MENACTRA/MENVEO) Completed 4, 12/25/2009 Gonorrhea / Chlamydia Screen Discontinued 06/28/2023 documented as of this encounter Medical Devices Not on filedocumented as of this encounter Visit Diagnoses Diagnosis Screening-pulmonary TB- Primary Screening examination for pulmonary tuberculosis documented in this encounter Care Teams Draw String Knotter Relationship Specialty Start Date End Date Jalen Mercado MD [address] [address] PCP - General Internal Medicine 11/02/19 documented as of this encounter
--- OUTSIDE RECORDS SUMMARY | 2024-06-18 15:33 | External Medical Summary ---
Author Name Unknown Address Unknown Organization : Laboratory Report Ordering Provider Test Date Status Katharine Whitfield 02/04/2024 11:29:00 Final Observation Date Value Abnormality Reference (Units) Status Giardia lamblia Ag [Presence] in Stool by Immunoassay 02/10/2024 09:13:00 See Result Comment Correction GIARDIA AG, EIA, STOOL
< br/> Micro Number: [id number]
Test Status: Final
Specimen Source: Not given
Specimen Quality: Adequate
Giardia Result 1: Not Detected
Reference Range: Not Detected

NOTE: Due to intermittent shedding, one negative
sample does not necessarily rule out the presence
of a parasitic infection.

Specimen Received d/t: 02/08/2024 02:45:00

Lab test performed by:
[facility], [facility]
[address]
[place] [address]
Neto Rodriguez MD Cryptosporidium sp Ag [Presence] in Stool by Immunoassay 02/10/2024 09:13:00 See Result Comment Co rrection CRYPTOSPORIDIUM ANTIGEN, EIA

Micro Number: [id number]
Test Status: Final
Specimen Source: Not given
Specimen Quality: Adequate
Cryptosporidium: Not Detected
Reference Range: Not Detected

NOTE: Due to intermittent shedding, one negative
sample does not necessarily rule out the presence
of a parasitic infection.

Specimen Received d/t: 02/08/2024 02:45:00

Lab test performed by:
[facility], [facility]
[address]
[place] [address]
Neto Rodriguez MD Performing Location
--- OUTSIDE RECORDS SUMMARY | 2024-06-18 15:33 | External Medical Summary ---
Author Name Unknown Address Unknown Organization : Laboratory Report Ordering Provider Test Date Status Vlad Whitfieldki 02/04/2024 11:29:00 Final Observation Date Value Abnormality Reference (Units ) Status Clostridioides difficile toxin genes [Presence] in Stool by PHIL with probe detection 02/10/2024 18:44:00 NOT DETECTED NOT DETECTED Final
This test is for use on ly with liquid or soft stools;
performance characteristics of other clinical specimen
types have not been established.

This assay was performed by [employer].
The performance characteristics of this assay have
been determined by [facility]. Performance
characteristics refer to the analytical performance
of the test.

For additional information, please refer to
http://education.360pi/faq/LRL583
(This link is being provided for
informational/educational purposes only.)

Specimen Received d/t: 02/08/2024 00:17:00

Lab test performed by:
[facility]
[address]
[place] [address]
Neto Rodriguez MD Performing Location
--- OUTSIDE RECORDS SUMMARY | 2024-06-18 15:33 | External Medical Summary | Summary of Care ---
Author Name Unknown Organization [facility] Address [address] [place] [address] Phone [phone] Care Team Providers Care [employer] Facer Name Role Phone Jalen Mercado MD Care Provider Reason for Visit * Reason Onset Date Comments PPD Skin Test PPD Skin Test 05/19/2024 ppd placed sd in right forearm at 1010 Encounter Details Date Type Department Care Team (Late st Contact Info) Description 05/19/2024 10:00 AM EST Immunization/ Injection [facility], [place] [address] [place] [address] College, Nurse [place] [address] [place] [address] Screening-pulmonary TB* Allergies No known active allergiesdocumented [...] to find out if youhave TB disease. [phone], [place] [address]. All rights reserved. This information is not [...] tuberculosis documented in this encounter Care Teams [employer] Facer Relationship Specialty Start Date End Date Jalen Mercado MD [address] [address] PCP - General Internal Medicine 11/02/19 documented as of this encounter
--- OUTSIDE RECORDS SUMMARY | 2024-06-18 15:33 | External Medical Summary ---
Author Name Unknown Address Unknown Organization : Laboratory Report Ordering Provider Test Date Status Roseann,Katharine 02/04/2024 11:28:00 Final Observation Date Value Abnormality Reference (Units) Status Escherichia coli shiga-like toxin [Presence] in Stool by Immunoassay 02/10/2024 09:13:00 See Result Comment Correction SHIGA TOXINS, EIA W/RFL TO E .COLI O157 CULTURE

Micro Number: [id number]
Test Status: Final
Specimen Source: Not given
Specimen Quality: Adequate
Shiga Toxin: Not Detected
Reference Range: Not Detected

Specimen Received d/t: 02/08/2024 02:45:00

Lab test performed by:
[facility], [facility]
[address]
[place] [address]
Neto Rodriguez MD Campylobacter jejuni+Campylobacter coli Ag [Presence] in Stool 02/10/2024 09:13:00 See Result Comment Correction CAMPYLOBACTER SPP. AG,EIA

Micro Number: [id number]
Test Status: Final
Specimen Source: Not given
Specimen Quality: Adequate
Campy Ag Result: Not Detected
Reference Range: Not Detected

Specimen Received d/t: 02/08/2024 02:45:00

Lab test performed by:
[facility], [facility]
[address]
[place] [address]
Neto Rodriguez MD Salmonella and Shigella sp identified in Stool by Organism specific culture 02/10/2024 09:13:00 See Result Comment Final SALMONELLA AND SHIGELLA, CUL TURE

Micro Number: [id number]
Test Status: Final
Specimen Source: Not given
Specimen Quality: Adequate
Result: No Salmonella or Shigella isolated

Specimen Received d/t: 02/08/2024 02:45:00

Lab test performed by:
[facility], [facility]
[address]
[place] [address]
Neto Rodriguez MD Performing Location
--- OUTSIDE RECORDS SUMMARY | 2024-06-18 15:33 | External Medical Summary | Continuity of Care Document ---
Author Name Unknown Organization [place] [id number] [place] [address] [id number] Encounter [facility] [id number] Date(s): 02/04/24 - 02/04/24 [facility] [address] [facility] 207 [facility] Medical [facility] [address] [address] [phone] Encounter Diagnosis Diarrhea(Discharge Diagnosis) - 02/04/24 Discharge Disposition: Home or Self Care Attending Physician: MD Koehler Jonathan D Referring Physician: MD Koehler Jonathan D Allergies, Adverse Reactions, Alerts No Known Medication Allergies Immunizations Given and Recorded Vaccine Date Status [...] 27Result Comment: 2021-03-08: Historical information-source unspecified Medications ALPRAZolam 2 mg oral tablet Start: 01/20/24 11:12:00 AM EDT, 0.5 tab, PO, bid, PRN: as needed for anxiety Start Date: 01/20/24 Status: Ordered ARIPiprazole 20 mg oral tablet Start: 01/20/24 12:09:00 PM EDT, 2 tab, PO, Daily Start Date: 01/20/24 Status: Ordered FLUoxetine 40 mg oral capsule Start: 01/20/24 12:09:00 PM EDT, 2 cap, PO, Daily, Start Date: 01/20/24 Status: Ordered hydrOXYzine hydrochloride 50 mg oral tablet Start: 01/20/24 12:09:00 PM EDT, 1 tab, PO, Daily, PRN: as needed for anxiety Start Date: 01/20/24 Status: Ordered prazosin 2 mg oral capsule Start: 01/20/24 11:13:00 AM EDT Start Date: 01/20/24 Status: Ordered Vestura 3 mg-0.02 mg oral tablet Start: 01/20/24 11:13:00 AM EDT Start Date: 01/20/24 Status: Ordered Vyvanse 20 mg oral capsule TAKE 1 CAPSULE BY MOUTH EVERY MORNING FOR FOCUS Start Date: 01/20/24 Status: Ordered Mental Status 02/04/24 Barriers to Learning one year None evide nt Mandatory Health Literacy Documentation Yes Health Literacy Communication Barriers N ever Primary Language Micronesian Problem List Condition Confirmation Course Effective Dates Status H ealth Status Informant Abdominal pain in female Confirmed Active Anxiety Confirmed Active Nevus Confirmed Active Cervical lymphadenopathy Confirmed Active Depression Confirmed Active 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 Right hip pain Confirmed Active Hip pain Confirmed Active Recurrent UTI Confirmed Active Tobacco user Confirmed Active Diagnosis Diagnosis Type Effective Dates Health Status Clini [facility]ian[facility] Service Informant Diarrhea Discharge Diagnosis 02/04/24 Non-Specified Procedures Procedure Date Related Diagnosis Body Site Status HEPATOBIL SYST IMAGE W/DRUG, hida scan 1 02/24/21 Completed Ultrasound 2 02/05/21 Completed Colonoscopy 3 01/17/21 Completed Esophagogastroduodenoscopy 4, 5 01/17/21 Completed Toe X-ray 6 06/08/18 Completed CXR - Chest X-ray 7 08/19/16 Compl eted Frenectomy of lip 2013 Complet ed 1Impression: No evidence for acute cholecystitis. Minimally diminished gallbladder ejection fraction of 29%. 2Unremarkable sonographic evaluation of the abdomen. 3COLO to TI normal. 4Pathology results: Duodenum, biopsy: no pathologic changes. Stomac, biopsy: MIld chronic gastritis with foveolar hyperplasia. F/U with PCP 5EGD normal exam, antrum and 2n duod bx, 6No acute osseous injury 7No active disease in the chest. Results Laboratory List Name Date CBC w/ Diff. (CBC w/ Diff-ARLN) 02/04/24 Comprehensive Metabolic Panel. (Comprehe nsive Metabolic Panel-ARLN) 02/04/24 Most recent to oldest [Reference Range]: 1 Bilirubin, Total (QST) [0.2-1.2 mg/dL] 0 .3 mg/dL 1 (02/04/24 2:33 PM) WBC Count-[facility] [3.8-10.8 Thousand/uL] 6 .0 Thousand/uL 2 (02/04/24 2:33 PM) BUN-[facility] [7-25 mg/dL] 11 mg/dL 3 (02/04/24 2:33 PM) Creatinine-[facility] [0.50-0.96 mg/dL] 0.78 mg/dL 4 (02/04/24 2:33 PM) BUN/Creat Ratio-[facility] [6-22 (calc)] SEE NOTE: (calc) 5 (02/04/24 2:33 PM) Na-[facility] [135-146 mmol/L] 139 mmol/L 6 (02/04/24 2:33 PM) K-[facility] [3.5-5.3 mmol/L] 4.1 mmol/L 7 (02/04/24 2:33 PM) Cl-[facility] [98-110 mmol/L] 107 mmol/L 8 (02/04/24 2:33 PM) CO2-[facility] [20-32 mmol/L] 23 mmol/L 9 (02/04/24 2:33 PM) Ca-[facility] [8.6-10.2 mg/dL] 9.2 mg/dL 10 (02/04/24 2:33 PM) MPV-[facility] [7.5-12.5 fL] 10.7 fL 11 (02/04/24 2:33 PM) Absolute Neutrophils-[facility] [4197-1943 ce lls/uL] 4206 cells/uL 12 (02/04/24 2:33 PM) Absolute Lymphocytes-[facility] [850-3900 paige ls/uL] 1110 cells/uL 13 (02/04/24 2:33 PM) Absolute Monocytes-[facility] [200-950 cells/ uL] 588 cells/uL 14 (02/04/24 2:33 PM) Absolute Eosinophils-[facility] [15-500 cells /uL] 78 cells/uL 15 (02/04/24 2:33 PM) Absolute Basophils-[facility] [0-200 cells/uL ] 18 cells/uL 16 (02/04/24 2:33 PM) Neutrophils-[facility] 70.1 % 17 (02/04/24 2:33 PM) Lymphocytes-[facility] 18.5 % 18 (02/04/24 2:33 PM) Monocytes-[facility] 9.8 % 19 (02/04/24 2:33 PM) Eosinophils-[facility] 1.3 % 20 (02/04/24 2:33 PM) Basophils-[facility] 0.3 % 21 (02/04/24 2:33 PM) Globulin-[facility] [1.9-3.7 g/dL (calc)] 2.7 g/dL (calc) 22 (02/04/24 2:33 PM) A/G Ratio-[facility] [1.0-2.5 (calc)] 1.5 (ca lc) 23 (02/04/24 2:33 PM) Hemoglobin Refl [11.7-15.5 g/dL] 13.8 g/ dL 24 (02/04/24 2:33 PM) Hematocrit Refl [35.0-45.0 %] 41.7 % 25 (02/04/24 2:33 PM) RBC Refl [3.80-5.10 Million/uL] 4.61 Mil lion/uL 26 (02/04/24 2:33 PM) MCV Refl [80.0-100.0 fL] 90.5 fL 27 (02/04/24 2:33 PM) MCH Refl [27.0-33.0 pg] 29.9 pg 28 (02/04/24 2:33 PM) RDW Refl [11.0-15.0 %] 12.5 % 29 (02/04/24 2:33 PM) Alkaline Phosphatase (ALP) [31-125 U/L] 69 U/L 30 (02/04/24 2:33 PM) Albumin, Serum [3.6-5.1 g/dL] 4.0 g/dL 3 1 (02/04/24 2:33 PM) ALT [6-29 U/L] 22 U/L 32 (02/04/24 2:33 PM) eGFR-QST [> OR = 60 mL/min/1.73m2] 108 m L/min/1.73m2 33 (02/04/24 2:33 PM) MCHC (QST) [32.0-36.0 g/dL] 33.1 g/dL 34 (02/04/24 2:33 PM) AST [10-30 U/L] 26 U/L 35 (02/04/24 2:33 PM) Glucose-Qst [65-99 mg/dL] 82 mg/dL 36 (02/04/24 2:33 PM) Platelet Count [140-400 Thousand/uL] 299 Thousand/uL 37 (02/04/24 2:33 PM) Total Protein-QST [6.1-8.1 g/dL] 6.7 g/d L 38 (02/04/24 2:33 PM) 1Result Comment: Specimen Received d/t: 02/04/2024 22:56:00 Lab test performed by: [employer], [facility] [address] [place] [address]Skylar Rodriguez MD 2Result Comment: Specimen Received d/t: 02/04/2024 22:56:00 Lab test performed by: [employer], [facility] [address] [place] [address] Neto Rodriguez MD 3Result Comment: Specimen Received d/t: 02/04/2024 22:56:00 Lab test performed by: [employer], [facility] [address] [place] [address]Skylar Rodriguez MD 4Result Comment: Specimen Received d/t: 02/04/2024 22:56:00 Lab test performed by: [employer] [facility] [address] [place] [address]Skylar Rodriguez MD 5Result Comment: Not Reported: BUN and Creatinine are within reference range. Specimen Received d/t: 02/04/2024 22:56:00 Lab test performed by: [employer] [facility] [address] [place] [address]Skylar Rodriguez MD 6Result Comment: Specimen Received d/t: 02/04/2024 22:56:00 Lab test performed by: [employer] [facility] [address] [place] [address]Skylar Rodriguez MD 7Result Comment: Specimen Received d/t: 02/04/2024 22:56:00 Lab test performed by: [employer] [facility] [address] [place] [address]Skylar Rodriguez MD 8Result Comment: Specimen Received d/t: 02/04/2024 22:56:00 Lab test performed by: [employer] [facility] [address] [place] [address]Skylar Rodriguez MD 9Result Comment: Specimen Received d/t: 02/04/2024 22:56:00 Lab test performed by: [facility], [facility] [address] [place] [address] Neto Rodriguez MD 10Result Comment: Specimen Received d/t: 02/04/2024 22:56:00 Lab test performed by: [facility], [facility] [address] [place] [address] Neto Rodriguez MD 11Result Comment: Specimen Received d/t: 02/04/2024 22:56:00 Lab test performed by: [facility], [facility] [address] [place] [address] Neto Rodriguez MD 12Result Comment: Specimen Received d/t: 02/04/2024 22:56:00 Lab test performed by: [facility], [facility] [address] [place] [address] Neto Rodriguez MD 13Result Comment: Specimen Received d/t: 02/04/2024 22:56:00 Lab test performed by: [facility], [facility] [address] [place] [address] Neto Rodriguez MD 14Result Comment: Specimen Received d/t: 02/04/2024 22:56:00 Lab test performed by: [facility] [address] [place] [address] Neto Rodriguez MD 15Result Comment: Specimen Received d/t: 02/04/2024 22:56:00 Lab test performed by: [facility], [facility] [address] [place] [address] Neto Rodriguez MD 16Result Comment: Specimen Received d/t: 02/04/2024 22:56:00 Lab test performed by: [facility], [facility] [address] [place] [address] Neto Rodriguez MD 17Result Comment: Specimen Received d/t: 02/04/2024 22:56:00 Lab test performed by: [facility], [facility] [address] [place] [address] Neto Rodriguez MD 18Result Comment: Specimen Received d/t: 02/04/2024 22:56:00 Lab test performed by: [facility] [address] [place] [address] Neto Rodriguez MD 19Result Comment: Specimen Received d/t: 02/04/2024 22:56:00 Lab test performed by: [facility] [address] [place] [address] Neto Rodriguez MD 20Result Comment: Specimen Received d/t: 02/04/2024 22:56:00 Lab test performed by: [facility] [address] [place] [address] Neto Rodriguez MD 21Result Comment: Specimen Received d/t: 02/04/2024 22:56:00 Lab test performed by: [facility] [address] [place] [address] Neto Rodriguez MD 22Result Comment: Specimen Received d/t: 02/04/2024 22:56:00 Lab test performed by: [facility] [address] [place] [address]Skylar Rodriguez MD 23Result Comment: Specimen Received d/t: 02/04/2024 22:56:00 Lab test performed by: [facility] [address] [place] [address]Skylar Rodriguez MD 24Result Comment: Specimen Received d/t: 02/04/2024 22:56:00 Lab test performed by: [facility] [address] [place] [address]Skylar Rodriguez MD 25Result Comment: Specimen Received d/t: 02/04/2024 22:56:00 Lab test performed by: [facility] [address] [place] [address]Rick Rodriguez MD 26Result Comment: Specimen Received d/t: 02/04/2024 22:56:00 Lab test performed by: [facility] [address] [place] Varsha Rodriguez MD 27Result Comment: Specimen Received d/t: 02/04/2024 22:56:00 Lab test performed by: [facility] [address] [place] [address]Rick Rodriguez MD 28Result Comment: Specimen Received d/t: 02/04/2024 22:56:00 Lab test performed by: [facility] [address] [place] Varsha Rodriguez MD 29Result Comment: Specimen Received d/t: 02/04/2024 22:56:00 Lab test performed by: [facility] [address] [place] Varsha Rodriguez MD 30Result Comment: Specimen Received d/t: 02/04/2024 22:56:00 Lab test performed by: [facility] [address] [place] Varsha Rodriguez MD 31Result Comment: Specimen Received d/t: 02/04/2024 22:56:00 Lab test performed by: [facility] [address] [place] Varsha Rodriguez MD 32Result Comment: Specimen Received d/t: 02/04/2024 22:56:00 Lab test performed by: [facility] [address] [place] Varsha Rodriguez MD 33Result Comment: Specimen Received d/t: 02/04/2024 22:56:00 Lab test performed by: [facility] [address] [place] Varsha Rodriguez MD 34Result Comment: Specimen Received d/t: 02/04/2024 22:56:00 Lab test performed by: [employer], [facility] [address] [place] [address] Neto Rodriguez MD 35Result Comment: Specimen Received d/t: 02/04/2024 22:56:00 Lab test performed by: [employer], [facility] [address] [place] [address] Neto Rodriguez MD 36Result Comment: Fasting reference interval Specimen Received d/t: 02/04/2024 22:56:00 Lab test performed by: [employer], [facility] [address] [place] [address] Neto Rodriguez MD 37Result Comment: Specimen Received d/t: 02/04/2024 22:56:00 Lab test performed by: [employer], [facility] [address] [place] [address] Neto Rodriguez MD 38Result Comment: Specimen Received d/t: 02/04/2024 22:56:00 Lab test performed by: [employer], [facility] [address] [place] [address] Neto Rodriguez MD Vital Signs Most recent to oldest [Reference Range]: 1 Patient Weight 75.6 kg (02/04/24 1:35 PM) Heart Rate 80 bpm (02/04/24 1:35 PM) Blood Pressure 104/70mmHg (02/04/24 1:35 PM) Cuff Pulse Pressure 34 mmHg (02/04/24 1:35 PM) Social History Social History Type Response Tobacco Current every day sm oker, Smokeless tobacco use: nicotine vape. Smoking Status Never smoked cigaret ruthie Sex Female Sex Representation Female (finding) Patient Care team information Care Team Related Persons Name: SHANNA CANTRELL Name: SHANNA WOODRUFF
[2024-06-18 16:14] LABS: Appearance Urine Clear (Clear); Bilirubin Urine Negative (Negative); Blood Urine Negative (Negative); Color Urine Yellow; Glucose Urine UA Negative (Negative); Ketones Urine Trace (Negative); Leukocyte Esterase Urine Negative (Negative); Nitrite Urine Negative (Negative); Protein Urine Negative (Negative); Specific Gravity Urine 1.025 (1.000-1.030); Urobilinogen Urine Negative (Negative); pH Urine 5.5 (4.5-7.5)
--- NOTE | 2024-06-18 16:23 | Emergency Department Note ---
Impression & Plan Hallucinations, Paranoia, Major depressive disorder, Suicidal ideation ED Provider Note ED Provider Note NAME: JESSICA PYLE AGE:24 SEX: Female : 2000 ARRIVES VIA: Private vehicle INFORMANT: Patient ED PROVIDER(s): Eliana Liang DO CHIEF COMPLAINT: Mental health evaluation HPI: This is a 24-year-old female who presents emergency department for mental health evaluation. Patient states she has a history of major depressive disorder with psychotic features. She does follow with a psychiatrist at [facility] routinely. She states recently she had had increasing hallucinations, predominantly auditory, as well as some increased paranoia. She also felt a sense of increased depression and began noting suicidal ideation. She states while driving she thought about closing her eyes and crashing her car to commit suicide. She has previously had SI, no prior attempt. She has previously had inpatient mental health treatment. Patient feels she likely needs this again. She states on Wednesday her psychiatrist did increase her Abilify. She states she has noticed a decrease in the hallucinations since then although has had worsening fatigue and anhedonia. PAST MEDICAL HISTORY:See Below PAST SURGICAL HISTORY:See Below FAMILY HISTORY:See Below SOCIAL HISTORY:See Below HOME MEDICATIONS:See Below ALLERGIES:See Below VITALS:See Below PHYSICAL EXAMINATION: GENERAL: alert, well appearing, well nourished, no distress, non-toxic EYE EXAM: normal conjunctiva, PERRL and EOM's grossly intact OROPHARYNX: no exudate, no erythema, lips, buccal mucosa, and tongue normal and mucous membranes are moist NECK: supple, no nuchal rigidity, no adenopathy, non-tender LUNGS: Clear to auscultation. Normal chest wall mechanics, no w/r/r HEART: no murmurs, S1 normal and S2 normal ABDOMEN: abdomen soft, non-tender, normo-active bowel sounds, no masses, no rebound or guarding. SKIN: no rashes, petechiae, orbruising UPPER EXTREMITIES: upper extremities are grossly normal. FROM, nml pulses b/l. LOWER EXTREMITIES: No pitting edema. FROM, nml pulses b/l. NEURO EXAM: Normal sensorium, cranial nerves II-XII grossly intact, normal speech, no facial droop,nogross weakness of arms, no gross weakness of legs. Gross sensation intact. No ataxia. Vital Signs: reviewed and remarkable Differential Diagnosis: mood disorder, suicidal ideation, anxiety, depression, substance abuse, toxidrome, infection, hypoglycemia, electrolyte abnormalities, ICH as well as others were considered. MEDICAL DECISION MAKING: This is a 24 yo female with hx of MDD with psychotic features who presents for worsening symptoms. She was afebrile and VS stable. Labs and urine collected per protocol and were reassuring. She was evaluated by case mgmt and referred for inpatient mental health treatment. She was accepted by , 201 signed by me. Consultation(s): 1934: Patient initially seen by ER case management. She was then referred to [facility] for additional inpatient treatment. Patient evaluated by [facility] liaison and accepted for additional inpatient mental health treatment. 201 signed by me. ER Treatment Provided: See below Diagnostics Interpreted By Me: -Laboratory studies: As stated above and show below. Triage Nursing Note Reviewed Prior/Outside Records Reviewed Past Med/Surg History Problem List (Updated 06/18/24 @ 16:23 by Eliana Liang DO) Suicidal ideation (Acute) Major depressive disorder (Acute) Paranoia (Acute) Hallucinations (Acute) Social anxiety disorder Generalized anxiety disorder with panic attacks Post traumatic stress disorder (PTSD) Bipolar 2 disorder, major depressive episode UTI (urinary tract infection) Alcohol use disorder, severe, in early remission, dependence Major depressive disorder, recurrent severe without psychotic features Hypotension Intentional benzodiazepine overdose (Acute) Depression with suicidal ideation (Acute) Bartholin cyst Weight loss, non-intentional Allergy Cough Dysmenorrhea Routine screening for STI (sexually transmitted infection) Oral contraceptive prescribed Encounter for gynecological examination without abnormal finding Anxiety CELESTINE positive Nausea Health care maintenance Depression (Chronic) Medical History (Updated 06/18/24 @ 16:23 by Eliana Liang DO) Depression with suicidal ideation Generalized pain Abdominal pain Pelvic pain Hematuria No significant active problems Suicidal intent Overdose of antidepressant 2014 SI Epistaxis Surgical History No pertinent past surgical history Family History Other No pertinent family history Denies family history of Colon cancer Ovarian cancer Prostate cancer Myocardial infarction Breast cancer Social History Smoking Status: Current every day smoker Tobacco Type: E-cigarettes / Vaping Do You Dip or Chew Tobacco: No; Hx Alcohol Use: Yes Alcohol type: other Hx Substance Use: No Preferred Language: Pakistani Communication Ability: Effective Visual Impairment: No Limitations Hearing Ability: Normal 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 Beliefs That Will Affect Care: None marital status: Single Current Living Situation: Family current occupational status: employed Feels Safe at Home: Yes Dental Care, Regularly: Yes Physical Activity Frequency: Does not Exercise Gender Identity: Female Assistive Devices: None Allergies Allergies Allergy/AdvReac Type Severity Reaction Status Date / Time No Known Allergies Allergy Unverified 09/12/22 09:51 Home Meds Home Medications Medication Instructions Recorded Confirmed aripiprazole 10 mg tablet 30 mg QPM 09/09/22 06/18/24 naltrexone microspheres 380 mg 380 mg IM MONTHLY 09/09/22 06/18/24 intramuscular suspension,extended release (Vivitrol) clonidine HCl 0.1 mg tablet 0.1 mg AMPM 06/18/24 06/18/24 drospirenone 3 mg-ethinyl 0.02 tab PO PM 06/18/24 06/18/24 estradiol 0.02 mg tablet (Vestura (28)) hydroxyzine HCl 50 mg tablet 50 mg PO PM 06/18/24 06/18/24 prazosin 2 mg capsule 2 mg PO PM 06/18/24 06/18/24 Results & Data (ED) Vital Signs Vital Signs - 24 hr 06/18/24 15:35 06/18/24 17:44 06/18/24 19:00 Temperature 36.2 C L Temperature Source Temporal Artery Scan Pulse Rate 85 Pulse Rate [Apical] 73 65 Pulse Rhythm [Apical] Regular Pulse Strength [Apical] Normal Respiratory Rate 22 16 16 Respiratory Effort / Characteristics Non-Labored Spontaneous Respiratory Depth Normal Blood Pressure 121/82 Blood Pressure [Left Arm] 92/63 L 99/65 L Blood Pressure Mean 95 Blood Pressure Mean [Left Arm] 72 76 Blood Pressure Position [Left Arm] Lying Pulse Oximetry 96 97 94 Oxygen Delivery Method Room Air Sepsis Recent Fever Within 48 Hours No Sepsis New/Unexplained Change in Mental Status N/A Sepsis Action Taken by Nursing No Action Required Laboratory Data 06/18/24 15:50 06/18/24 15:50 Lab Results 06/18/24 06/18/24 06/18/24 Range/Units 15:44 15:50 15:59 WBC 8.93 (4.8-10.8) K/ul RBC 4.59 (4.20-5.40) M/uL Hgb 14.0 (12.0-16.0) g/dl Hct 41.3 (37.0-47.0) % MCV 90.0 (80.0-100.0) fL MCH 30.5 (25.0-34.0) pg MCHC 33.9 (32.0-36.0) g/dL RDW Std Deviation 40.9 (36.4-46.3) fL RDW Coeff of Luiz 12.5 (11.5-14.5) % Plt Count 366 (130-400) K/uL MPV 10.6 (9.4-12.4) fL Immature Gran % (Auto) 0.8 % Neut % (Auto) 57.1 % Lymph % (Auto) 32.8 % [place] % (Auto) 6.7 % Eos % (Auto) 2.2 % Baso % (Auto) 0.4 % Neut # (Auto) 5.09 (1.40-6.50) K/uL Lymph # (Auto) 2.93 (1.20-3.40) K/uL [place]orne # (Auto) 0.60 H (0.11-0.59) K/uL Eos # (Auto) 0.20 (0.00-0.50) K/uL Baso # (Auto) 0.04 (0.00-0.20) K/uL Immature Gran # (Auto) 0.07 (0.01-0.20) K/uL Sodium 138 (136-145) mmol/L Potassium 3.4 L (3.5-5.1) mmol/L Chloride 106 (98-107) mmol/L Carbon Dioxide 23 (21-32) mmol/L Anion Gap 9 (3-11) BUN 12 (6-23) mg/dl Creatinine 0.78 (0.6-1.2) mg/dl Est Cr Clr Drug Dosing 111.2 ml/min eGFR 107.36 BUN/Creatinine Ratio 15.4 (10-20) Glucose 87 (70-99(Fasting)) mg/dl Calcium 9.0 (8.6-10.3) mg/dl Total Bilirubin 0.4 (0.2-1.0) mg/dl AST 19 (13-39) U/L ALT 18 (7-52) U/L Alkaline Phosphatase 79 (34-104) U/L Total Protein 7.4 (6.0-8.3) gm/dl Albumin 4.2 (3.4-5.0) gm/dl Globulin 3.2 (2.5-4.0) gm/dl Albumin/Globulin Ratio 1.3 (0.9-2) TSH 1.951 (0.300-4.500) uIu/ml Urine Color Yellow Urine Appearance Clear (Clear) Urine pH 5.5 (4.5-7.5) Ur Specific [place] 1.025 (1.000-1.030) Urine Protein Negative (Negative) Urine Glucose (UA) Negative (Negative) Urine Ketones Trace H (Negative) Urine Blood Negative (Negative) Urine Nitrite Negative (Negative) Urine Bilirubin Negative (Negative) Urine Urobilinogen Negative (Negative) Ur Leukocyte Esterase Negative (Negative) POC Ur Test NEG (NEG) Salicylates < 3.0 L (3.0-30) mg/dl Urine Opiates Screen Neg (Neg) Ur Methadone, Qual Neg (Neg) Urine Fentanyl Screen Neg (Neg) Acetaminophen < 3 L (10-30) ug/ml Urine Barbiturates Neg (Neg) Ur Phencyclidine (PCP) Neg (Neg) U Amphetamin/Meth Scrn Neg (Neg) MDMA (Ecstasy) Screen Neg (Neg) U Benzodiazepines Scrn Neg (Neg) Ur Cocaine Metabolite Neg (Neg) U Marijuana (THC) Screen Neg (Neg) Ethyl Alcohol mg/dL < 10.0 (<10.0) mg/dl SARS-CoV-2, RNA, NAAT NEGATIVE (NEGATIVE) Administered Medications Aripiprazole (Aripiprazole 15 Mg Tab) 30 mg PO HS ELIZABETH Stop: 07/18/24 21:59 Last Admin: 06/18/24 21:30 Dose: 30 mg Documented By: SAMANTHA Clonidine HCl (Clonidine Hcl 0.1 Mg Tab) 0.1 mg PO HS ELIZABETH Stop: 07/18/24 21:59 Last Admin: 06/18/24 21:30 Dose: 0.1 mg Documented By: SAMANTHA Clonidine HCl (Clonidine Hcl 0.1 Mg Tab) 0.1 mg PO BID ELIZABETH Stop: 07/19/24 10:14 Last Admin: 06/19/24 11:58 Dose: 0.1 mg Documented By: [id number] Fluoxetine HCl (Fluoxetine Hcl 20 Mg Cap) 80 mg PO [facility] Stop: 07/18/24 21:59 Last Admin: 06/18/24 22:12 Dose: 80 mg Documented By: SAMANTHA Hydroxyzine HCl (Hydroxyzine Hcl 25 Mg Tab) 50 mg PO HSZ PRN PRN Reason: Insomnia Stop: 07/18/24 20:40 Last Admin: 06/18/24 21:33 Dose: 50 mg Documented By: SAMANTHA Miscellaneous (Remove Nicoderm Patch) 1 each N/A DAILY@[id number] [facility] Stop: 07/19/24 08:58 Last Admin: 06/19/24 09:09 Dose: 1 each Documented By: [id number] Nicotine (Nicotine 21 Mg/24 Hr Tdsy) [facility] Stop: 07/19/24 08:59 Last Admin: 06/19/24 09:08 Dose: 1 patch Documented By: [id number] Nicotine Polacrilex (Nicotine Polacrilex 2 Mg Gum) 2 piece MT PRN PRN PRN Reason: Nicotine Withdrawal Symptoms Stop: 07/18/24 20:40 Last Admin: 06/19/24 13:02 Dose: 2 piece Documented By: [id number] Admin: 06/19/24 09:42 Dose: 2 piece Documented By: [id number] Prazosin HCl (Prazosin Hcl 1 Mg Cap) 2 mg PO [facility] Stop: 07/18/24 21:59 Last Admin: 06/18/24 21:30 Dose: 2 mg Documented By: SAMANTHA Discharge Plan Visit Data Chief Complaint: Mental Health Evaluation Stated Complaint: MENTAL HEALTH EVALUATION ED Provider: Eliana Liang Discharge Problem: Hallucinations, Paranoia, Major depressive disorder, Suicidal ideation Patient Disposition: Admitted As Inpatient Discharge Instructions Interventions: ED Discharge Assessment Last Done: 06/18/24 19:35
[2024-06-18 16:29] LABS: Basophils # (auto) 0.04 K/uL (0.00-0.20); Basophils % (auto) 0.4 %; Eosinophils % (auto) 2.2 %; Hematocrit (blood only) 41.3 % (37.0-47.0); Immature Granulocytes # (auto) 0.07 K/uL (0.01-0.20); Immature Granulocytes % (auto) 0.8 %; Lymphocytes # (auto) 2.93 K/uL (1.20-3.40); Lymphocytes % (auto) 32.8 %; Mean Corpuscular Hemoglobin 30.5 pg (25.0-34.0); Mean Corpuscular Hgb Conc 33.9 g/dL (32.0-36.0); Mean Platelet Volume 10.6 fL (9.4-12.4); Monocytes % (auto) 6.7 %; Neutrophils # (auto) 5.09 K/uL (1.40-6.50); Neutrophils % (auto) 57.1 %; Platelet Count 366 K/uL (130-400); RDW Coefficient of Variation 12.5 % (11.5-14.5); RDW Standard Deviation 40.9 fL (36.4-46.3); Red Blood Count 4.59 M/uL (4.20-5.40); White Blood Count 8.93 K/ul (4.8-10.8)
[2024-06-18 16:41] LABS: Albumin Globulin Ratio 1.3 (0.9-2); Albumin Level 4.2 gm/dl (3.4-5.0); BUN Creatinine Ratio 15.4 (10-20); Bilirubin,Total 0.4 mg/dl (0.2-1.0); Creatinine Clr Calc Pharmacy 111.2 ml/min; Globulin 3.2 gm/dl (2.5-4.0); Potassium 3.4 mmol/L (3.5-5.1); Total Protein 7.4 gm/dl (6.0-8.3)
[2024-06-18 16:54] LABS: Thyroid Stimulating Hormone 1.951 uIu/ml (0.300-4.500)
[2024-06-18 16:56] LABS: Acetaminophen < 3 ug/ml (10-30); Salicylate < 3.0 mg/dl (3.0-30)
[2024-06-18 16:58] LABS: Amphetamines+Metham, Urine Neg (Neg); Barbiturates, Urine Neg (Neg); Benzodiazepine, Urine Neg (Neg); Cocaine, Urine Neg (Neg); Fentanyl, Urine Neg (Neg); MDMA (Ecstacy), Urine Neg (Neg); Marijuana, Urine Neg (Neg); Methadone, Urine Neg (Neg); Opiate, Urine Neg (Neg); Phencyclidine, Urine Neg (Neg)
[2024-06-18] MEDS ORDERED: MAGNESIUM HYDROXIDE SUSP 30 ML UDC PO PRN (20:41)
[2024-06-18] MEDS ORDERED: ALUMINUM/MAGNESIUM SUSP 30 ML UDC PO PRN (20:41)
[2024-06-18] MEDS ORDERED: BISMUTH SUBSALICYLATE 262 MG CHEW PO PRN (20:41)
[2024-06-18] MEDS ORDERED: SODIUM CHLORIDE 0.65% NA SOLN 45 ML (OCEAN) PRN (20:41)
[2024-06-18] MEDS ORDERED: OLANZapine 5 MG TABLET PO PRN (20:43)
[2024-06-18] MEDS: ARIPiprazole 15 MG TAB PO SCH (21:30)
[2024-06-18] MEDS: cloNIDine HCL 0.1 MG TAB PO SCH (21:30)
[2024-06-18] MEDS: PRAZOSIN HCL 1 MG CAP PO SCH (21:30)
[2024-06-18] MEDS: hydrOXYzine HCl 25 MG TAB PO PRN (21:33)
[2024-06-18] MEDS: FLUoxetine HCL 20 MG CAP PO SCH (22:12)
--- NOTE | 2024-06-19 08:58 | History & Physical ---
Date of Service June 19, 2024 Impression / Recommendations Impression DARLENE PYLE is a 24-year-old woman who currently lives in [place] alone, has a history of 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 Diagnostically consistent with unspecified depression and unspecified psychosis with differential including MDD with psychotic features vs BPAD type II current depressive episode with psychotic features vs primary psychotic disorder vs psychosis/mood changes 2/2 substance use (though unlikely as she denies any substance use in last three months and UDS negative). Discussed medication treatment options in detail. Discussed risks, benefits and alternatives. Patient would like to start and consented to Latuda for psychosis and depression augmentation and ongoing use of fluoxetine for depression and continuation of prior to admission prazosin and clonidine. Reviewed side effects including but not limited to: GI, BUNN, sexual side effects, and counseled on black box warning of potential for emergence of or increased SI and need to let staff know should this occur or should they feel unsafe. Also discussed importance of seeking emergency care following discharge if this side effect occurs in the future with fluoxetine; movement (TD, NMS), cardiac (QTc prolongation), and metabolic (stroke, insulin resistance) and necessity for fasting lipid and glucose labwork and AIMS done with score of 0 with Latuda; low BP/syncope with prazosin and clonidine (and especially in combination). MNPR-psychosis with paranoia Overall I spent a total of 75 minutes for this admission including review of chart records, review of labwork, direct evaluation of the patient, counseling the patient, ordering medication, risk assessment, discussion with the psychiatric liason RN and documentation in the electronic health record. (1) Suicidal ideation: (2) Psychotic disorder: (3) Depression with suicidal ideation: (4) Paranoia: (5) Hallucinations: (6) Post traumatic stress disorder (PTSD): Plan 06/19/2024: The patient was admitted to the [facility] ([facility] mental health unit) on q15 min checks (behavioral with suicide precautions) for safety. The patient will participate in group, recreational, and milieu therapies and will be offered additional individual and family sessions as clinically appropriate. -Medications: * Start Latuda 20mg daily with dinner * C/w Fluoxetine 80mg daily * C/w clonidine 0.1mg BID * C/w prazosin 2mg HS -Labwork: * Fasting lipid panel, HBA1c, Vit D and Vit B12 in AM Inventory Assets Strengths: supportive relationships, willing to get treatment Needs: safety and stabilization, medication adjustment, additional coping skills, increased outpatient services Suicide Risk Level Suicide Risk Level: High-Moderate (q15 min suicide checks) (depression with psychosis and SI but denies command AH, SI lessening in the hospital, feels safe here and feels able to ask for support if needed) Risk Factors Assessment Male: No : Yes Do You Have Access To A Gun?: No Health Problems: No Mental Health Diagnoses: Yes Substance Use Disorders: Yes (hx of) Previous Attempt: Yes Family History of Suicide: No Previous Psychiatric Hospitalization: Yes Hopelessness: Yes Protective Factors Assessment Employed: Yes () Stable Relationships: Yes Good Rapport with Provider: Yes Psychiatric History Identifying Data DARLENE PYLE is a 24-year-old woman who currently lives in [place] alone, has a history of 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 Chief Complaint "The stress triggered the hallucinations". History of Present Illness Darlene presents for psychiatric admission for worsening depression and SI with plan of crashing her car and increased hallucinations in the context of multiple psychosocial stressors including work, financial strain, and probation. She thinks "the stress triggered the hallucinations and then the hallucinations brought on the depression more". She identifies "there's a lot of overwhelm and derealization like I didn't feel real". The voices have been largely mumbled, sounds like they are talking behind a wall or say her name or "hey". She denies any command hallucinations. She also identifies feeling paranoid and afraid of "people watching me or following me" and "been afraid of like when I was on meth my boyfriend said he put cameras in the TV and now I wonder are there cameras in the TV or on my phone watching me". Hallucinations have been lessening but "an increase of paranoia and on edge". She recently "just got back together" with her boyfriend. She's been attending NA and AA three times per week. She hasn't used methamphetamine in almost 3 months, she credits probation with helping her avoid use and she recognizes "it's not sustainable, it's not something I can keep doing without consequences". She is currently prescribed psychiatric medications of: fluoxetine 80mg HS (increased in March) and Abilify 30mg HS (increased a week ago) and clonidine 0.1mg BID, prazosin 2mg HS. Psychiatric ROS notable for history of symptoms of psychosis, PTSD, hx of self- harm. Additional information per psych liason note on 06/18/2024: "Patient reports an increase in auditory hallucinations that she describes as mumbling voices, increase in paranoia, and depressive symptoms. Darlene reports that she has been having an increase in fleeting suicidal ideation that is worsening in intensity. While driving today she closed her eyes with the hopes of getting into a car wreck that would end her life but decided against it. Her grandmother brought h er into the ED today. Patient reports recent change in medication dosage last wednesday; Abilify increased to 30mg HS which she reports have improved her auditory hallucinations. Otherwise, she reports anhedonia, hypersomnolent, and overeating as some of her depressive symptoms." Past Psychiatric History Current Psychiatric Diagnosis: MDD with psychotic features Outpatient Services: psych with Dina He from [place] outpatient therapy at [place] one time a week with Chen, and group 2x a week at [place]. CM through [facility] chief privacy officer is Rosita Sanches. Previous Psych Admissions: multiple ~7-8, last at the [facility] in September 2023 [facility] in September 2022 Do You Have Access To A Gun?: No History of Previous Suicide Attempt: Yes Describe Attempts in the Past: 2022-overdose, age 13 via OD Past Medication Trials: recalls olanzapine in the past and thinks this was helpful (stopped when she went to rehab and was put on Depakote). -hx Depakote -Buspar -Sertraline -Effexor -gabapentin -Klonopin -Propranolol -trazodone Allergies Allergy/AdvReac Type Severity Reaction Status Date / Time No Known Allergies Allergy Unverified 09/12/22 09:51 Home Medications Medication Instructions Recorded Confirmed Type aripiprazole 10 mg tablet 30 mg QPM 09/09/22 06/18/24 History naltrexone microspheres 380 mg 380 mg IM MONTHLY 09/09/22 06/18/24 History intramuscular suspension,extended release (Vivitrol) clonidine HCl 0.1 mg tablet 0.1 mg AMPM 06/18/24 06/18/24 History drospirenone 3 mg-ethinyl 0.02 tab PO PM 06/18/24 06/18/24 History estradiol 0.02 mg tablet (Vestura (28)) hydroxyzine HCl 50 mg tablet 50 mg PO PM 06/18/24 06/18/24 History prazosin 2 mg capsule 2 mg PO PM 06/18/24 06/18/24 History Family History Family History of: Psychosis/ThoughtDisorder (grandmother) Alcohol History Hx of Alcohol Use Over the Past 12 Months: No AUDIT Total Score: 0 denies Smoking Use tobacco type: e-cigarettes Smoking Status: Current every day smoker Substance History Hx of Prescription Med Misuse Over the Past 12 Months: No Hx of Over the Counter Med Misuse Over the Past 12 Months: No Hx of Inhalent Misuse Over the Past 12 Months: No Hx of Organic Substance Use Over the Past 12 Months: No Hx of Illegal Substances/Street Drug Use Over Past 12 Months: Yes Problems as a Result of Past Substance Use: None Identified hx of methamphetamine, last use about 3 months ago. 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) Beliefs That Will Affect Care: None Current Legal Problems: Yes Hx Legal Problems: No Hx Traumatic Life Events: Yes Patient History Medical History Depression with suicidal ideation Generalized pain Abdominal pain Pelvic pain Hematuria No significant active problems Suicidal intent Overdose of antidepressant 2015 SI Epistaxis Surgical History No pertinent past surgical history Family History Other No pertinent family history Denies family history of Colon cancer Ovarian cancer Prostate cancer Myocardial infarction Breast cancer Social History Smoking Status: Current every day smoker Tobacco Type: E-cigarettes / Vaping Do You Dip or Chew Tobacco: No; Hx Alcohol Use: Yes Alcohol type: other Hx Substance Use: No Preferred Language: Irish Communication Ability: Effective Visual Impairment: No Limitations Hearing Ability: Normal Roving Machine Operator Required: No Beliefs That Will Affect Care: None marital status: Single Current Living Situation: Family current occupational status: employed Feels Safe at Home: Yes Dental Care, Regularly: Yes Physical Activity Frequency: Does not Exercise Gender Identity: Female Assistive Devices: None Review of Systems Review of Systems: All systems reviewed & are unremarkable except as noted in HPI & below Physical Exam Psychiatric: Orientation: alert and oriented x 3 Apperance: appropriately dressed and appropriately groomed Eye Contact: + fair eye contact Motor Behavior: no abnormal motor movements Speech: + abnormal rate/rhythm/volume of speech (soft, slow) Affect: + depressed affect Mood: + depressed mood Thought Process: + concrete thought process Thought Content: + paranoid and + delusions Suicidal Thoughts: denies suicidal intent; + reports suicidal thoughts (lessened today due to feeling safe in inpt setting) and + reports suicidal plan (none for hospital, outside to crash car) Homicidal Thoughts: denies homicidal thoughts Hallucinations: + auditory hallucinations; no visual hallucinations Cognition: recent memory grossly intact, remote memory grossly intact, attention grossly intact and language grossly intact Estimated Intelligence: consistent with education level Insight: + fair insight Judgment: + fair judgement Vital Signs (Past 24 Hours): Last Vital Signs Temp 36.6 C 06/19/24 06:42 Pulse 79 06/19/24 06:42 Resp 16 06/19/24 06:42 BP 100/68 06/19/24 06:42 Pulse Ox 98 06/18/24 19:58 O2 Del Method Room Air 06/18/24 19:58 Exam Statement: A physical exam was performed in the ED by Dr. Liang for the purposes of medical clearance. I accept that physical as correct and adequate for the purposes of the inpatient physical exam. Results & Data ([facility]) Laboratory Results Laboratory Results - last 24 hr 06/18/24 06/18/24 06/18/24 15:44 15:50 15:59 WBC 8.93 RBC 4.59 Hgb 14.0 Hct 41.3 MCV 90.0 MCH 30.5 MCHC 33.9 RDW Std Deviation 40.9 RDW Coeff of Luiz 12.5 Plt Count 366 MPV 10.6 Immature Gran % (Auto) 0.8 Neut % (Auto) 57.1 Lymph % (Auto) 32.8 [place] % (Auto) 6.7 Eos % (Auto) 2.2 Baso % (Auto) 0.4 Neut # (Auto) 5.09 Lymph # (Auto) 2.93 [place] # (Auto) 0.60 H Eos # (Auto) 0.20 Baso # (Auto) 0.04 Immature Gran # (Auto) 0.07 Sodium 138 Potassium 3.4 L Chloride 106 Carbon Dioxide 23 Anion Gap 9 BUN 12 Creatinine 0.78 Est Cr Clr Drug Dosing 111.2 eGFR 107.36 BUN/Creatinine Ratio 15.4 Glucose 87 Calcium 9.0 Total Bilirubin 0.4 AST 19 ALT 18 Alkaline Phosphatase 79 Total Protein 7.4 Albumin 4.2 Globulin 3.2 Albumin/Globulin Ratio 1.3 TSH 1.951 Urine Color Yellow Urine Appearance Clear Urine pH 5.5 Ur Specific [place] 1.025 Urine Protein Negative Urine Glucose (UA) Negative Urine Ketones Trace H Urine Blood Negative Urine Nitrite Negative Urine Bilirubin Negative Urine Urobilinogen Negative Ur Leukocyte Esterase Negative POC Ur Test NEG Salicylates < 3.0 L Urine Opiates Screen Neg Ur Methadone, Qual Neg Urine Fentanyl Screen Neg Acetaminophen < 3 L Urine Barbiturates Neg Ur Phencyclidine (PCP) Neg U Amphetamin/Meth Scrn Neg MDMA (Ecstasy) Screen Neg U Benzodiazepines Scrn Neg Ur Cocaine Metabolite Neg U Marijuana (THC) Screen Neg Ethyl Alcohol mg/dL < 10.0 SARS-CoV-2, RNA, NAAT NEGATIVE Current Inpatient Medications Current Inpatient Medications: Current Inpatient Medications Acetaminophen (Acetaminophen 325 Mg Tab) 650 mg PO Q4H PRN PRN Reason: Headache or Minor Fever Stop: 07/18/24 20:40 Al Hydrox/Mg Hydrox/Simethicone (Aluminum/Magnesium Susp 30 Ml Udc) 30 ml PO Q4H PRN PRN Reason: GI Upset Stop: 07/18/24 20:40 Aripiprazole (Aripiprazole 15 Mg Tab) 30 mg PO HS [facility]ETH Stop: 07/18/24 21:59 Last Admin: 06/18/24 21:30 Dose: 30 mg Bismuth Subsalicylate (Bismuth Subsalicylate 262 Mg Chew) 2 tab PO Q30M PRN PRN Reason: Loose Stool/Diarrhea Stop: 07/18/24 20:40 Clonidine HCl (Clonidine Hcl 0.1 Mg Tab) 0.1 mg PO HS [facility] Stop: 07/18/24 21:59 Last Admin: 06/18/24 21:30 Dose: 0.1 mg Fluoxetine HCl (Fluoxetine Hcl 20 Mg Cap) 80 mg PO HS [facility] Stop: 07/18/24 21:59 Last Admin: 06/18/24 22:12 Dose: 80 mg Hydroxyzine HCl (Hydroxyzine Hcl 25 Mg Tab) 50 mg PO HSZ PRN PRN Reason: Insomnia Stop: 07/18/24 20:40 Last Admin: 06/18/24 21:33 Dose: 50 mg Hydroxyzine HCl (Hydroxyzine Hcl 25 Mg Tab) 25 mg PO Q4H PRN PRN Reason: Anxiety Stop: 07/18/24 20:40 Magnesium Hydroxide (Magnesium Hydroxide Susp 30 Ml Udc) 30 ml PO DAILY PRN PRN Reason: Constipation Stop: 07/18/24 20:40 Miscellaneous (Remove Nicoderm Patch) 1 each N/A DAILY@0859 [facility] Stop: 07/19/24 08:58 Nicotine (Nicotine 21 Mg/24 Hr Tdsy) 1 patch TD QAM [facility] Stop: 07/19/24 08:59 Nicotine Polacrilex (Nicotine Polacrilex 2 Mg Gum) 2 piece MT PRN PRN PRN Reason: Nicotine Withdrawal Symptoms Stop: 07/18/24 20:40 Olanzapine (Olanzapine 5 Mg Tablet) 5 mg PO BID PRN PRN Reason: Psychosis Stop: 07/18/24 20:59 Prazosin HCl (Prazosin Hcl 1 Mg Cap) 2 mg PO HS [facility] Stop: 07/18/24 21:59 Last Admin: 06/18/24 21:30 Dose: 2 mg Sodium Chloride (Sodium Chloride 0.65% Na Soln 45 Ml ([place])) 1 - 2 sprays NA PRN PRN PRN Reason: Nasal Dryness/Congestion Stop: 07/18/24 20:40
[2024-06-19] MEDS: NICOTINE 21 MG/24 HR TDSY TD SCH (09:08)
[2024-06-19] MEDS: NICOTINE POLACRILEX 2 MG GUM MT PRN (09:42)
[2024-06-19] MEDS ORDERED: OLANZAPINE 2.5 MG TAB PO PRN (11:52)
[2024-06-19] MEDS: cloNIDine HCL 0.1 MG TAB PO SCH (11:58)
[2024-06-19] MEDS: LURASIDONE HCL 20 MG TAB PO SCH (17:48)
[2024-06-19] MEDS: hydrOXYzine HCl 25 MG TAB PO SCH (20:44)
[2024-06-19] MEDS ORDERED: PRAZOSIN HCL 1 MG CAP PO SCH (21:00)
[2024-06-19] MEDS ORDERED: ARIPiprazole 15 MG TAB PO SCH (21:00)
[2024-06-20 08:43] LABS: Chol HDL Ratio 3.3 (0-5)
--- NOTE | 2024-06-20 08:51 | Psychiatric Progress Note ---
Date of Service June 20, 2024 Impression / Recommendations Impression JESSICA PYLE is a 24-year-old woman who currently lives in [place] alone, has a history of 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 Diagnostically consistent with unspecified depression and unspecified psychosis with differential including MDD with psychotic features vs BPAD type II current depressive episode with psychotic features vs primary psychotic disorder vs psychosis/mood changes 2/2 substance use (though unlikely as she denies any substance use in last three months and UDS negative). A: Ongoing depression, some lessening of psychosis. Tolerating initial dose of Latuda so far. She is agreeable to ongoing dose titration. Reviewed labwork, notable for low Vit D, elevated TGs, elevated total cholesterol, low risk LDL, and normal HbA1c. Appropriate to continue with Latuda use given degree of psychic distress from symptoms, discussed recommendation that she continue to have her fasting lipid panel and HbA1c closely followed over time which she is agreeable to doing with her PCP. MNPR-psychosis with paranoia Overall, I spent a total of 35 minutes on this case including meeting with the patient, reviewing the chart, nursing report, multidisciplinary team meeting, orders, and documentation. (1) Suicidal ideation: (2) Psychotic disorder: (3) Depression with suicidal ideation: (4) Paranoia: (5) Hallucinations: (6) Post traumatic stress disorder (PTSD): Plan 06/20/2024: -Increase Latuda to 40mg daily with dinner tomorrow -Start Vit D 06/19/2024: The patient was admitted to the [facility] ([facility] mental health [facility]) on q15 min checks (behavioral with suicide precautions) for safety. The patient will participate in group, recreational, and milieu therapies and will be offered additional individual and family sessions as clinically appropriate. -Medications: * Start Latuda 20mg daily with dinner * C/w Fluoxetine 80mg daily * C/w clonidine 0.1mg BID * C/w prazosin 2mg HS -Labwork: * Fasting lipid panel, HBA1c, Vit D and Vit B12 in AM Inventory Assets Strengths: supportive relationships, willing to get treatment Needs: safety and stabilization, medication adjustment, additional coping skills, increased outpatient services Suicide Risk Level Suicide Risk Level: High-Moderate (q15 min suicide checks) (depression with psychosis and SI but denies command AH, SI lessening in the hospital, feels safe here and feels able to ask for support if needed) Risk Factors Assessment Male: No : Yes Do You Have Access To A Gun?: No Health Problems: No Mental Health Diagnoses: Yes Substance Use Disorders: Yes (hx of) Previous Attempt: Yes Family History of Suicide: Yes (paternal grandmother) Previous Psychiatric Hospitalization: Yes Hopelessness: Yes Protective Factors Assessment Employed: Yes () Stable Relationships: Yes Good Rapport with Provider: Yes Interval History Identifying Information JESSICA PYLE is a 24-year-old woman who currently lives in [place] alone, has a history of 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 Chief Complaint "This is now my 8th or 10th hospitalization, it just makes me feel kind of hopeless". Review of Systems Sleep Information Total Hours of Sleep: 8 Meal Information Percent Meal Consumed - Breakfast: 100 Percent Meal Consumed - Lunch: 100 Percent Meal Consumed - Dinner: 100 Subjective Subjective Patient was seen & assessed and interval progress reviewed with nursing and social work. Attending groups. Slept for 8 hours. Today ongoing depression, had increased anxiety earlier in the morning with panic symptoms for which she took prn Vistaril and found this helpful. She is looking forward to having visitors tonight. Slept "pretty good" but awoke early. Ongoing periods of SI. She feels her mood and psychosis are "a little bit better" and that "I feel more safe and hopeful". Reviewed labwork results. Physical Exam Psychiatric Orientation: alert and oriented x 3 Apperance: appropriately dressed and appropriately groomed Eye Contact: + fair eye contact Motor Behavior: no abnormal motor movements Speech: + abnormal rate/rhythm/volume of speech (soft, slow) Affect: + depressed affect Mood: + depressed mood Thought Process: + concrete thought process Thought Content: + paranoid and + delusions Suicidal Thoughts: denies suicidal intent; + reports suicidal thoughts and + reports suicidal plan (none for hospital) Homicidal Thoughts: denies homicidal thoughts Hallucinations: + auditory hallucinations; no visual hallucinations Cognition: recent memory grossly intact, remote memory grossly intact, attention grossly intact and language grossly intact Estimated Intelligence: consistent with education level Insight: + fair insight Judgment: + fair judgement Vital Signs (Past 24 Hours) Last Vital Signs Temp 36.9 C 06/20/24 06:30 Pulse 67 06/20/24 06:31 Resp 16 06/20/24 06:30 BP 105/72 06/20/24 06:31 Pulse Ox 98 06/18/24 19:58 O2 Del Method Room Air 06/18/24 19:58 Results & Data ([facility]) Laboratory Results Laboratory Results - last 24 hr 06/20/24 08:05 Estimat Average Glucose Pending Hemoglobin A1c Pending Triglycerides 235 H Cholesterol 234 H LDL Cholesterol, Calc 115 VLDL Cholesterol, Calc 47 H HDL Cholesterol 72 Cholesterol/HDL Ratio 3.3 Vitamin B12 Pending 25-OH Vitamin D Total Pending Current Inpatient Medications Current Inpatient Medications: Current Inpatient Medications Acetaminophen (Acetaminophen 325 Mg Tab) 650 mg PO Q4H PRN PRN Reason: Headache or Minor Fever Stop: 07/18/24 20:40 Al Hydrox/Mg Hydrox/Simethicone (Aluminum/Magnesium Susp 30 Ml Udc) 30 ml PO Q4H PRN PRN Reason: GI Upset Stop: 07/18/24 20:40 Bismuth Subsalicylate (Bismuth Subsalicylate 262 Mg Chew) 2 tab PO Q30M PRN PRN Reason: Loose Stool/Diarrhea Stop: 07/18/24 20:40 Clonidine HCl (Clonidine Hcl 0.1 Mg Tab) 0.1 mg PO BID [facility] Stop: 07/19/24 10:14 Last Admin: 06/19/24 20:43 Dose: 0.1 mg Fluoxetine HCl (Fluoxetine Hcl 20 Mg Cap) 80 mg PO HS [facility] Stop: 07/18/24 21:59 Last Admin: 06/19/24 20:44 Dose: 80 mg Hydroxyzine HCl (Hydroxyzine Hcl 25 Mg Tab) 50 mg PO HSZ PRN PRN Reason: Insomnia Stop: 07/18/24 20:40 Last Admin: 06/18/24 21:33 Dose: 50 mg Hydroxyzine HCl (Hydroxyzine Hcl 25 Mg Tab) 25 mg PO Q4H PRN PRN Reason: Anxiety Stop: 07/18/24 20:40 Hydroxyzine HCl (Hydroxyzine Hcl 25 Mg Tab) 50 mg PO PM [facility] Stop: 07/19/24 20:59 Last Admin: 06/19/24 20:44 Dose: 50 mg Lurasidone HCl (Lurasidone Hcl 20 Mg Tab) 20 mg PO DAILYBD [facility] Stop: 07/19/24 17:14 Last Admin: 06/19/24 17:48 Dose: 20 mg Magnesium Hydroxide (Magnesium Hydroxide Susp 30 Ml Udc) 30 ml PO DAILY PRN PRN Reason: Constipation Stop: 07/18/24 20:40 Miscellaneous (Remove Nicoderm Patch) 1 each N/A DAILY@0859 [facility] Stop: 07/19/24 08:58 Last Admin: 06/19/24 09:09 Dose: 1 each Nicotine (Nicotine 21 Mg/24 Hr Tdsy) 1 patch TD QAM [facility] Stop: 07/19/24 08:59 Last Admin: 06/19/24 09:08 Dose: 1 patch Nicotine Polacrilex (Nicotine Polacrilex 2 Mg Gum) 2 piece MT PRN PRN PRN Reason: Nicotine Withdrawal Symptoms Stop: 07/18/24 20:40 Last Admin: 06/19/24 18:33 Dose: 2 piece Olanzapine (Olanzapine 2.5 Mg Tab) 2.5 mg PO BID PRN PRN Reason: Psychosis/Agitation Stop: 07/18/24 20:59 Prazosin HCl (Prazosin Hcl 1 Mg Cap) 2 mg PO HS [facility] Stop: 07/18/24 21:59 Last Admin: 06/19/24 20:45 Dose: 2 mg Sodium Chloride (Sodium Chloride 0.65% Na Soln 45 Ml ([place])) 1 - 2 sprays NA PRN PRN PRN Reason: Nasal Dryness/Congestion Stop: 07/18/24 20:40 Mental Health & Subst Abuse Tx Psychiatrist Name of Psychiatrist: Lauryn He Psychiatrist's Date Of Appointment With Psychiatric Provider: 07/03/24 Time of Appointment with Psychiatrist: 1:40PM Therapist Name of Therapist: Kimmy Therapist's Date of Therapist Appointment: 06/29/24 Time of Therapist Appointment: 10AM Therapy Appointment Comment: In Person - [address] [facility] [place] [address] Consulting Psychiatrist Name of Consulting Psychiatrist: [facility] Phone Number for Consulting Psychiatrist: [phone] Post Discharge Appointments Primary Care Physician Name Of Family Doctor/PCP: Jose Antonio Gross Solar Installer Technician Name of Solar Installer Technician: [facility] ([employer]) - [place] Phone Number of Solar Installer Technician: [phone] Solar Installer Technician Appointment Comment: cancelled appt on 06/22/24, RS will call to reschedule appt Contact Information Discharge Discharge Address: [address] [place] [address] Milind CROWELL [id number]
[2024-06-20 09:02] LABS: Estimated Average Glucose 94 mg/dl; Hemoglobin A1C 4.9 % (4.5-5.6)
[2024-06-20] MEDS: hydrOXYzine HCl 25 MG TAB PO PRN (12:00)
[2024-06-20] MEDS: ACETAMINOPHEN 325 MG TAB PO PRN (16:53)
--- NOTE | 2024-06-21 09:00 | Psychiatric Progress Note ---
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 Diagnostically consistent with unspecified depression and unspecified psychosis with differential including MDD with psychotic features vs BPAD type II current depressive episode with psychotic features vs primary psychotic disorder vs psychosis/mood changes 2/2 substance use (though unlikely as she denies any substance use in last three months and UDS negative). A: Ongoing depression, still with depression but seems to have some lessening of paranoia and hallucinations today as she feels more grounded. Tolerating medications. Plan to increase Latuda this evening. MNPR-psychosis with paranoia Overall, I spent a total of 25 minutes on this case including meeting with the patient, reviewing the chart, nursing report, multidisciplinary team meeting, orders, and documentation. (1) Suicidal ideation: (2) Psychotic disorder: (3) Depression with suicidal ideation: (4) Paranoia: (5) Hallucinations: (6) Post traumatic stress disorder (PTSD): Plan 06/21/2024: -Increased Latuda 40mg daily with dinner tonight 06/20/2024: -Increase Latuda to 40mg daily with dinner tomorrow -Start Vit D 06/19/2024: The patient was admitted to the [facility] ([facility]) on q15 min checks (behavioral with suicide precautions) for safety. The patient will participate in group, recreational, and milieu therapies and will be offered additional individual and family sessions as clinically appropriate. -Medications: * Start Latuda 20mg daily with dinner * C/w Fluoxetine 80mg daily * C/w clonidine 0.1mg BID * C/w prazosin 2mg HS -Labwork: * Fasting lipid panel, HBA1c, Vit D and Vit B12 in AM Inventory Assets Strengths: supportive relationships, willing to get treatment Needs: safety and stabilization, medication adjustment, additional coping skills, increased outpatient services Suicide Risk Level Suicide Risk Level: High-Moderate (q15 min suicide checks) (depression with psychosis and SI but denies command AH, SI lessening in the hospital, feels safe here and feels able to ask for support if needed) Risk Factors Assessment Male: No : Yes Do You Have Access To A Gun?: No Health Problems: No Mental Health Diagnoses: Yes Substance Use Disorders: Yes (hx of) Previous Attempt: Yes Family History of Suicide: Yes (paternal grandmother) Previous Psychiatric Hospitalization: Yes Hopelessness: Yes Protective Factors Assessment Employed: Yes () Stable Relationships: Yes Good Rapport with Provider: Yes Interval History Identifying Information JESSICA PYLE is a 24-year-old woman who currently lives in [place] alone, has a history of 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 Chief Complaint "A little more calm". Review of Systems Sleep Information Total Hours of Sleep: 7.5 Meal Information Percent Meal Consumed - Breakfast: 100 Percent Meal Consumed - Lunch: 75 Percent Meal Consumed - Dinner: 100 Subjective Subjective Patient was seen & assessed and interval progress reviewed with treatment team. Going to groups but guarded. Had an episode of incontinence yesterday, seemed to be while environmental services was in her room and perhaps she felt uncomfortable asking for alternative bathroom to use. Had a headache last evening. Rated her mood "relieved and tired" last evening. Her grandmother visited last evening. Voiced some paranoia while meeting with counselor, she processed some automatic thoughts using CBT skills. Today reports her mood is "a little more calm, less foggy and dissociated". Still with depression but less SI. She still feels she has a ways to go to feeling like herself and feeling safe again. Physical Exam Psychiatric Orientation: alert and oriented x 3 Apperance: appropriately dressed and appropriately groomed Eye Contact: + fair eye contact Motor Behavior: no abnormal motor movements Speech: + abnormal rate/rhythm/volume of speech (soft, slow) Affect: + flat affect Mood: + depressed mood Thought Process: + concrete thought process Thought Content: + paranoid Suicidal Thoughts: denies suicidal thoughts (intermittent, lessening), denies suicidal plan (none for hospital) and denies suicidal intent Homicidal Thoughts: denies homicidal thoughts Hallucinations: no auditory hallucinations and no visual hallucinations Cognition: recent memory grossly intact, remote memory grossly intact, attention grossly intact and language grossly intact Estimated Intelligence: consistent with education level Insight: + fair insight Judgment: + fair judgement Vital Signs (Past 24 Hours) Last Vital Signs Temp 36.6 C 06/21/24 06:00 Pulse 71 06/21/24 06:40 Resp 16 06/21/24 06:00 BP 122/81 06/21/24 06:40 Pulse Ox 100 06/21/24 06:00 O2 Del Method Room Air 06/21/24 06:00 Results & Data ([facility]) Laboratory Results Laboratory Results - last 24 hr 06/20/24 08:05 Estimat Average Glucose 94 Hemoglobin A1c 4.9 Vitamin B12 259 25-OH Vitamin D Total 19.6 L Current Inpatient Medications Current Inpatient Medications: Current Inpatient Medications Acetaminophen (Acetaminophen 325 Mg Tab) 650 mg PO Q4H PRN PRN Reason: Headache or Minor Fever Stop: 07/18/24 20:40 Last Admin: 06/20/24 16:53 Dose: 650 mg Al Hydrox/Mg Hydrox/Simethicone (Aluminum/Magnesium Susp 30 Ml Udc) 30 ml PO Q4H PRN PRN Reason: GI Upset Stop: 07/18/24 20:40 Bismuth Subsalicylate (Bismuth Subsalicylate 262 Mg Chew) 2 tab PO Q30M PRN PRN Reason: Loose Stool/Diarrhea Stop: 07/18/24 20:40 Clonidine HCl (Clonidine Hcl 0.1 Mg Tab) 0.1 mg PO BID ELIZABETH Stop: 07/19/24 10:14 Last Admin: 06/20/24 20:34 Dose: 0.1 mg Fluoxetine HCl (Fluoxetine Hcl 20 Mg Cap) 80 mg PO HS ELIZABETH Stop: 07/18/24 21:59 Last Admin: 06/20/24 20:36 Dose: 80 mg Hydroxyzine HCl (Hydroxyzine Hcl 25 Mg Tab) 50 mg PO HSZ PRN PRN Reason: Insomnia Stop: 07/18/24 20:40 Last Admin: 06/18/24 21:33 Dose: 50 mg Hydroxyzine HCl (Hydroxyzine Hcl 25 Mg Tab) 25 mg PO Q4H PRN PRN Reason: Anxiety Stop: 07/18/24 20:40 Last Admin: 06/20/24 12:00 Dose: 25 mg Hydroxyzine HCl (Hydroxyzine Hcl 25 Mg Tab) 50 mg PO PM ELIZABETH Stop: 07/19/24 20:59 Last Admin: 06/20/24 20:35 Dose: 50 mg Lurasidone HCl (Lurasidone Hcl 20 Mg Tab) 40 mg PO DAILYBD [facility] Stop: 07/21/24 17:14 Magnesium Hydroxide (Magnesium Hydroxide Susp 30 Ml Udc) 30 ml PO DAILY PRN PRN Reason: Constipation Stop: 07/18/24 20:40 Miscellaneous (Remove Nicoderm Patch) 1 each N/A DAILY@0859 [facility] Stop: 07/19/24 08:58 Last Admin: 06/20/24 09:13 Dose: 1 each Nicotine (Nicotine 21 Mg/24 Hr Tdsy) 1 patch TD QAM [facility] Stop: 07/19/24 08:59 Last Admin: 06/20/24 09:13 Dose: 1 patch Nicotine Polacrilex (Nicotine Polacrilex 2 Mg Gum) 2 piece MT PRN PRN PRN Reason: Nicotine Withdrawal Symptoms Stop: 07/18/24 20:40 Last Admin: 06/20/24 19:58 Dose: 2 piece Olanzapine (Olanzapine 2.5 Mg Tab) 2.5 mg PO BID PRN PRN Reason: Psychosis/Agitation Stop: 07/18/24 20:59 Prazosin HCl (Prazosin Hcl 1 Mg Cap) 2 mg PO HS [facility] Stop: 07/18/24 21:59 Last Admin: 06/20/24 20:36 Dose: 2 mg Sodium Chloride (Sodium Chloride 0.65% Na Soln 45 Ml ([place])) 1 - 2 sprays NA PRN PRN PRN Reason: Nasal Dryness/Congestion Stop: 07/18/24 20:40 Vitamin D (Cholecalciferol 25 Mcg (1000 Units) Tab) 25 mcg PO QAM [facility] Stop: 07/21/24 08:59 Mental Health & Subst Abuse Tx Psychiatrist Name of Psychiatrist: Lauryn He Psychiatrist's Date Of Appointment With Psychiatric Provider: 07/03/24 Time of Appointment with Psychiatrist: 1:40PM Therapist Name of Therapist: Kimmy Therapist's Date of Therapist Appointment: 06/29/24 Time of Therapist Appointment: 10AM Therapy Appointment Comment: In Person - [address] [facility] [place] [id number] Spoilage Worker Name of Spoilage Worker: [facility] Phone Number for Spoilage Worker: [phone] Date of Appointment with Spoilage Worker: 06/22/24 Time of Appointment with Spoilage Worker: 9AM Case Management Appointment Comment: CM will meet with patient on the unit Post Discharge Appointments Primary Care Physician Name Of Family Doctor/PCP: Jose Antonio Gross Bingo Attendant Name of Bingo Attendant: [facility] (Continuous Improvement Facilitator) [facility] Phone Number of Bingo Attendant: [phone] Bingo Attendant Appointment Comment: cancelled appt on 06/22/24, RS will call to reschedule appt Contact Information Discharge Discharge Address: [address] [place] [address] [place] [id number]
[2024-06-21] MEDS: CHOLECALCIFEROL 25 MCG (1000 UNITS) TAB PO SCH (10:34)
[2024-06-21] MEDS: LURASIDONE HCL 20 MG TAB PO SCH (17:42)
--- NOTE | 2024-06-22 08:52 | Psychiatric Progress Note ---
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 Diagnostically consistent with unspecified depression and unspecified psychosis with differential including MDD with psychotic features vs BPAD type II current depressive episode with psychotic features vs primary psychotic disorder vs psychosis/mood changes 2/2 substance use (though unlikely as she denies any substance use in last three months and UDS negative). A: Ongoing depression, some lessening of paranoia but still with hypervigilance and needing to reality-test when she hears noises. Tolerating higher dose of Latuda so far, perhaps caused a bit of fatigue so will monitor for this. MNPR-psychosis with paranoia Overall, I spent a total of 25 minutes on this case including meeting with the patient, reviewing the chart, nursing report, multidisciplinary team meeting, orders, and documentation. (1) Suicidal ideation: (2) Psychotic disorder: (3) Depression with suicidal ideation: (4) Paranoia: (5) Hallucinations: (6) Post traumatic stress disorder (PTSD): Plan 06/22/2024: Continue current medications and tx plan 06/21/2024: -Increased Latuda 40mg daily with dinner tonight 06/20/2024: -Increase Latuda to 40mg daily with dinner tomorrow -Start Vit D 06/19/2024: The patient was admitted to the [facility] ([facility] mental health unit) on q15 min checks (behavioral with suicide precautions) for safety. The patient will participate in group, recreational, and milieu therapies and will be offered additional individual and family sessions as clinically appropriate. -Medications: * Start Latuda 20mg daily with dinner * C/w Fluoxetine 80mg daily * C/w clonidine 0.1mg BID * C/w prazosin 2mg HS -Labwork: * Fasting lipid panel, HBA1c, Vit D and Vit B12 in AM Inventory Assets Strengths: supportive relationships, willing to get treatment Needs: safety and stabilization, medication adjustment, additional coping skills, increased outpatient services Suicide Risk Level Suicide Risk Level: Moderate (q15 min suicide checks) (depression with psychosis and SI but denies command AH, SI lessening in the hospital and paranoia less ening, feels safe here and feels able to ask for support if needed) Risk Factors Assessment Male: No : Yes Do You Have Access To A Gun?: No Health Problems: No Mental Health Diagnoses: Yes Substance Use Disorders: Yes (hx of) Previous Attempt: Yes Family History of Suicide: Yes (paternal grandmother) Previous Psychiatric Hospitalization: Yes Hopelessness: Yes Protective Factors Assessment Employed: Yes ( Days) Stable Relationships: Yes Good Rapport with Provider: Yes Interval History Identifying Information JESSICA PYLE is a 24-year-old woman who currently lives in [place] alone, has a history of 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 Chief Complaint "Ok". Review of Systems Sleep Information Total Hours of Sleep: 8.25 Meal Information Percent Meal Consumed - Breakfast: 100 Percent Meal Consumed - Lunch: 100 Percent Meal Consumed - Dinner: 100 Subjective Subjective Patient was seen & assessed and interval progress reviewed with nursing and social work. Attending groups but more isolative last evening, went to bed early. Showing less affect in the evening, more depressed. Today mood improving a little bit, met with her CM. Feels her anxiety is "less paranoid, more regular anxiety and not paranoid". Though notes she still feels "kind of on edge" and checks to see when she hears noises if they are real or hallucinations, has been able to reality-test today. Still with mixing plant dumper awakenings, discussed having a clock as she feels this would help her anticipate when morning vitals will occur as she thinks she is waking up due to anticipation about this. Denies any new medication side effects but did feel tired last night after Latuda but she also thinks this could have been from trying to be more social. Physical Exam Psychiatric Orientation: alert and oriented x 3 Apperance: appropriately dressed and appropriately groomed Eye Contact: + fair eye contact Motor Behavior: no abnormal motor movements Speech: + abnormal rate/rhythm/volume of speech (soft, slow) Affect: + flat affect Mood: + depressed mood Thought Process: + concrete thought process Thought Content: + paranoid (lessening, more hypervigilance now) Suicidal Thoughts: denies suicidal thoughts (intermittent, lessening), denies suicidal plan (none for hospital) and denies suicidal intent Homicidal Thoughts: denies homicidal thoughts Hallucinations: no auditory hallucinations and no visual hallucinations Cognition: recent memory grossly intact, remote memory grossly intact, attention grossly intact and language grossly intact Estimated Intelligence: consistent with education level Insight: + fair insight Judgment: + fair judgement Vital Signs (Past 24 Hours) Last Vital Signs Temp 36.6 C 06/22/24 06:00 Pulse 68 06/22/24 06:37 Resp 17 06/22/24 06:00 BP 103/70 06/22/24 06:37 Pulse Ox 98 06/22/24 06:00 O2 Del Method Room Air 06/22/24 06:00 Results & Data ([facility]) Current Inpatient Medications Current Inpatient Medications: Current Inpatient Medications Acetaminophen (Acetaminophen 325 Mg Tab) 650 mg PO Q4H PRN PRN Reason: Headache or Minor Fever Stop: 07/18/24 20:40 Last Admin: 06/20/24 16:53 Dose: 650 mg Al Hydrox/Mg Hydrox/Simethicone (Aluminum/Magnesium Susp 30 Ml Udc) 30 ml PO Q4H PRN PRN Reason: GI Upset Stop: 07/18/24 20:40 Bismuth Subsalicylate (Bismuth Subsalicylate 262 Mg Chew) 2 tab PO Q30M PRN PRN Reason: Loose Stool/Diarrhea Stop: 07/18/24 20:40 Clonidine HCl (Clonidine Hcl 0.1 Mg Tab) 0.1 mg PO BID ELIZABETH Stop: 07/19/24 10:14 Last Admin: 06/21/24 21:18 Dose: 0.1 mg Fluoxetine HCl (Fluoxetine Hcl 20 Mg Cap) 80 mg PO HS [facility]ETH Stop: 07/18/24 21:59 Last Admin: 06/21/24 21:17 Dose: 80 mg Hydroxyzine HCl (Hydroxyzine Hcl 25 Mg Tab) 50 mg PO HSZ PRN PRN Reason: Insomnia Stop: 07/18/24 20:40 Last Admin: 06/18/24 21:33 Dose: 50 mg Hydroxyzine HCl (Hydroxyzine Hcl 25 Mg Tab) 25 mg PO Q4H PRN PRN Reason: Anxiety Stop: 07/18/24 20:40 Last Admin: 06/20/24 12:00 Dose: 25 mg Hydroxyzine HCl (Hydroxyzine Hcl 25 Mg Tab) 50 mg PO PM [facility]ETH Stop: 07/19/24 20:59 Last Admin: 06/21/24 21:22 Dose: 50 mg Lurasidone HCl (Lurasidone Hcl 20 Mg Tab) 40 mg PO DAILYBD [facility] Stop: 07/21/24 17:14 Last Admin: 06/21/24 17:42 Dose: 40 mg Magnesium Hydroxide (Magnesium Hydroxide Susp 30 Ml Udc) 30 ml PO DAILY PRN PRN Reason: Constipation Stop: 07/18/24 20:40 Miscellaneous (Remove Nicoderm Patch) 1 each N/A DAILY@0859 [facility] Stop: 07/19/24 08:58 Last Admin: 06/21/24 10:34 Dose: 1 each Nicotine (Nicotine 21 Mg/24 Hr Tdsy) 1 patch TD QAM [facility] Stop: 07/19/24 08:59 Last Admin: 06/21/24 10:34 Dose: 1 patch Nicotine Polacrilex (Nicotine Polacrilex 2 Mg Gum) 2 piece MT PRN PRN PRN Reason: Nicotine Withdrawal Symptoms Stop: 07/18/24 20:40 Last Admin: 06/21/24 13:27 Dose: 2 piece Olanzapine (Olanzapine 2.5 Mg Tab) 2.5 mg PO BID PRN PRN Reason: Psychosis/Agitation Stop: 07/18/24 20:59 Prazosin HCl (Prazosin Hcl 1 Mg Cap) 2 mg PO HS [facility]ETH Stop: 07/18/24 21:59 Last Admin: 06/21/24 21:17 Dose: 2 mg Sodium Chloride (Sodium Chloride 0.65% Na Soln 45 Ml ([place])) 1 - 2 sprays NA PRN PRN PRN Reason: Nasal Dryness/Congestion Stop: 07/18/24 20:40 Vitamin D (Cholecalciferol 25 Mcg (1000 Units) Tab) 25 mcg PO QAM [facility] Stop: 07/21/24 08:59 Last Admin: 06/21/24 10:34 Dose: 25 mcg Mental Health & Subst Abuse Tx Psychiatrist Name of Psychiatrist: Lauryn He Psychiatrist's Date Of Appointment With Psychiatric Provider: 07/03/24 Time of Appointment with Psychiatrist: 1:40PM Therapist Name of Therapist: Kimmy Therapist's Date of Therapist Appointment: 06/29/24 Time of Therapist Appointment: 10AM Therapy Appointment Comment: In Person - [address] [facility] [place] [id number] Rigging Helper Name of Rigging Helper: [facility] Phone Number for Rigging Helper: [phone] Date of Appointment with Rigging Helper: 06/22/24 Time of Appointment with Rigging Helper: 9AM Case Management Appointment Comment: CM will meet with patient on the unit Post Discharge Appointments Primary Care Physician Name Of Family Doctor/PCP: Jose Antonio Gross Reconciliation Coordinator Name of Reconciliation Coordinator: [facility] (Concrete Boom Operator) Lai Simon Phone Number of Reconciliation Coordinator: [phone] Reconciliation Coordinator Appointment Comment: cancelled appt on 06/22/24, RS will call to reschedule appt Contact Information Discharge Discharge Address: [address] [place] [address] [place] [id number]
--- NOTE | 2024-06-23 08:47 | Psychiatric Progress Note ---
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 Diagnostically consistent with unspecified depression and unspecified psychosis with differential including MDD with psychotic features vs BPAD type II current depressive episode with psychotic features vs primary psychotic disorder vs psychosis/mood changes 2/2 substance use (though unlikely as she denies any substance use in last three months and UDS negative). A: Ongoing depression and anxiety but denies SI and no evidence for psychosis nor paranoia today. She is still struggling with sleep (tallied as 8.5 hours but she reports multiple awakenings) and some fatigue in the AM. She'd like to reduce clonidine to HS only and consents to trial of trazodone for insomnia/depression. reviewed side effects including but not limited to: sedation, increased appetite, weight gain. MNPR-significant social anxiety, recent paranoia Overall, I spent a total of 35 minutes on this case including meeting with the patient, reviewing the chart, nursing report, multidisciplinary team meeting, orders, and documentation. (1) Suicidal ideation: (2) Psychotic disorder: (3) Depression with suicidal ideation: (4) Paranoia: (5) Hallucinations: (6) Post traumatic stress disorder (PTSD): Plan 06/23/2024: -Decrease clonidine to 0.1mg HS -Start trazodone 50mg HS 06/22/2024: Continue current medications and tx plan 06/21/2024: -Increased Latuda 40mg daily with dinner tonight 06/20/2024: -Increase Latuda to 40mg daily with dinner tomorrow -Start Vit D 06/19/2024: The patient was admitted to the [facility] ([facility] mental health unit) on q15 min checks (behavioral with suicide precautions) for safety. The patient will participate in group, recreational, and milieu therapies and will be offered additional individual and family sessions as clinically appropriate. -Medications: * Start Latuda 20mg daily with dinner * C/w Fluoxetine 80mg daily * C/w clonidine 0.1mg BID * C/w prazosin 2mg HS -Labwork: * Fasting lipid panel, HBA1c, Vit D and Vit B12 in AM Inventory Assets Strengths: supportive relationships, willing to get treatment Needs: safety and stabilization, medication adjustment, additional coping skills, increased outpatient services Suicide Risk Level Suicide Risk Level: Moderate (q15 min suicide checks) (depression with psychosis and SI but denies command AH, SI lessening in the hospital and paranoia lessening, feels safe here and feels able to ask for support if needed) Risk Factors Assessment Male: No : Yes Do You Have Access To A Gun?: No Health Problems: No Mental Health Diagnoses: Yes Substance Use Disorders: Yes (hx of) Previous Attempt: Yes Family History of Suicide: Yes (paternal grandmother) Previous Psychiatric Hospitalization: Yes Hopelessness: Yes Protective Factors Assessment Employed: Yes () Stable Relationships: Yes Good Rapport with Provider: Yes Interval History Identifying Information JESSICA PYLE is a 24-year-old woman who currently lives in [place] alone, has a history of 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 Chief Complaint "Ok, more anxious today". Review of Systems Sleep Information Total Hours of Sleep: 8.5 Meal Information Percent Meal Consumed - Breakfast: 100 Percent Meal Consumed - Lunch: 100 Percent Meal Consumed - Dinner: 100 Subjective Subjective Patient was seen & assessed and interval progress reviewed with treatment team. Attending groups, out of her room more last evening. Coloring with peers. Last evening reported her mood as "tired". Her grandmother visited last evening, slept well. Reports mood as slightly more anxious today, she thinks this is due to thinking about what it will be like eventually to return to work and stressors outside of the hospital. She felt tired this morning and she wonders if it could be due to clonidine as this was added shortly prior to hospitalization, she'd like to try just taking it at HS. Still not sleeping well, woke up multiple times. She denies any paranoia nor psychosis today, still having a lot of depression. Notes she has been "more emotional" today. Physical Exam Psychiatric Orientation: alert and oriented x 3 Apperance: appropriately dressed and appropriately groomed Eye Contact: + fair eye contact Motor Behavior: no abnormal motor movements Speech: + abnormal rate/rhythm/volume of speech (soft, slow) Affect: + flat affect Mood: + depressed mood Thought Process: + concrete thought process Thought Content: reality based without delusions Suicidal Thoughts: denies suicidal thoughts (intermittent, lessening), denies suicidal plan (none for hospital) and denies suicidal intent Homicidal Thoughts: denies homicidal thoughts Hallucinations: no auditory hallucinations and no visual hallucinations Cognition: recent memory grossly intact, remote memory grossly intact, attention grossly intact and language grossly intact Estimated Intelligence: consistent with education level Insight: + fair insight Judgment: + fair judgement Vital Signs (Past 24 Hours) Last Vital Signs Temp 36.6 C 06/23/24 06:51 Pulse 70 06/23/24 06:54 Resp 17 06/23/24 06:51 BP 102/79 06/23/24 06:54 Pulse Ox 95 06/23/24 06:51 O2 Del Method Room Air 06/23/24 06:51 Results & Data ([facility]) Current Inpatient Medications Current Inpatient Medications: Current Inpatient Medications Acetaminophen (Acetaminophen 325 Mg Tab) 650 mg PO Q4H PRN PRN Reason: Headache or Minor Fever Stop: 07/18/24 20:40 Last Admin: 06/20/24 16:53 Dose: 650 mg Al Hydrox/Mg Hydrox/Simethicone (Aluminum/Magnesium Susp 30 Ml Udc) 30 ml PO Q4H PRN PRN Reason: GI Upset Stop: 07/18/24 20:40 Bismuth Subsalicylate (Bismuth Subsalicylate 262 Mg Chew) 2 tab PO Q30M PRN PRN Reason: Loose Stool/Diarrhea Stop: 07/18/24 20:40 Clonidine HCl (Clonidine Hcl 0.1 Mg Tab) 0.1 mg PO BID ELIZABETH Stop: 07/19/24 10:14 Last Admin: 06/22/24 21:11 Dose: 0.1 mg Fluoxetine HCl (Fluoxetine Hcl 20 Mg Cap) 80 mg PO HS ELIZABETH Stop: 07/18/24 21:59 Last Admin: 06/22/24 21:11 Dose: 80 mg Hydroxyzine HCl (Hydroxyzine Hcl 25 Mg Tab) 50 mg PO HSZ PRN PRN Reason: Insomnia Stop: 07/18/24 20:40 Last Admin: 06/18/24 21:33 Dose: 50 mg Hydroxyzine HCl (Hydroxyzine Hcl 25 Mg Tab) 25 mg PO Q4H PRN PRN Reason: Anxiety Stop: 07/18/24 20:40 Last Admin: 06/20/24 12:00 Dose: 25 mg Hydroxyzine HCl (Hydroxyzine Hcl 25 Mg Tab) 50 mg PO PM ELIZABETH Stop: 07/19/24 20:59 Last Admin: 06/22/24 21:11 Dose: 50 mg Lurasidone HCl (Lurasidone Hcl 20 Mg Tab) 40 mg PO DAILYBD ELIZABETH Stop: 07/21/24 17:14 Last Admin: 06/22/24 17:55 Dose: 40 mg Magnesium Hydroxide (Magnesium Hydroxide Susp 30 Ml Udc) 30 ml PO DAILY PRN PRN Reason: Constipation Stop: 07/18/24 20:40 Miscellaneous (Remove Nicoderm Patch) 1 each N/A DAILY@0859 [facility] Stop: 07/19/24 08:58 Last Admin: 06/22/24 09:53 Dose: 1 each Nicotine (Nicotine 21 Mg/24 Hr Tdsy) 1 patch [facility] [place] Stop: 07/19/24 08:59 Last Admin: 06/22/24 09:54 Dose: 1 patch Nicotine Polacrilex (Nicotine Polacrilex 2 Mg Gum) 2 piece MT PRN PRN PRN Reason: Nicotine Withdrawal Symptoms Stop: 07/18/24 20:40 Last Admin: 06/22/24 17:56 Dose: 2 piece Olanzapine (Olanzapine 2.5 Mg Tab) 2.5 mg PO BID PRN PRN Reason: Psychosis/Agitation Stop: 07/18/24 20:59 Prazosin HCl (Prazosin Hcl 1 Mg Cap) 2 mg PO HS ELIZABETH Stop: 07/18/24 21:59 Last Admin: 06/22/24 21:11 Dose: 2 mg Sodium Chloride (Sodium Chloride 0.65% Na Soln 45 Ml ([place])) 1 - 2 sprays NA PRN PRN PRN Reason: Nasal Dryness/Congestion Stop: 07/18/24 20:40 Vitamin D (Cholecalciferol 25 Mcg (1000 Units) Tab) 25 mcg PO QAM ELIZABETH Stop: 07/21/24 08:59 Last Admin: 06/22/24 09:54 Dose: 25 mcg Mental Health & Subst Abuse Tx Psychiatrist Name of Psychiatrist: Lauryn He Psychiatrist's Date Of Appointment With Psychiatric Provider: 07/03/24 Time of Appointment with Psychiatrist: 1:40PM Therapist Name of Therapist: Kimmy Therapist's Date of Therapist Appointment: 06/29/24 Time of Therapist Appointment: 10AM Therapy Appointment Comment: In Person - [address] [facility] [place] [id number] Field Representative Name of Field Representative: [facility] Phone Number for Field Representative: [phone] Date of Appointment with Field Representative: 06/26/24 Time of Appointment with Field Representative: 3:30PM Case Management Appointment Comment: CM will meet with patient on the unit Post Discharge Appointments Primary Care Physician Name Of Family Doctor/PCP: Jose Antonio Gross Tester Electronic Scale Name of Tester Electronic Scale: [facility] (Equal Opportunity Assistant) - [place] Phone Number of Tester Electronic Scale: [phone] Tester Electronic Scale Appointment Comment: cancelled appt on 06/22/24, RS will call to reschedule appt Contact Information Discharge Discharge Address: [address] [place] [address] [place] [address]
[2024-06-23 20:39] VITALS: O2SAT 98
[2024-06-23] MEDS: cloNIDine HCL 0.1 MG TAB PO SCH (21:24)
[2024-06-23] MEDS: traZODone HCL 50 MG TAB PO SCH (21:26)
[2024-06-24 15:35] LABS: Adenovirus PCR Not Detected (NotDetected); Bordetella parapertussis PCR Not Detected (NotDetected); Bordetella pertussis PCR Not Detected (NotDetected); Chlamydia pneumoniae PCR Not Detected (NotDetected); Coronavirus 229E PCR Not Detected (NotDetected); Coronavirus CoV-2 (COVID19)PCR Not Detected (NotDetected); Coronavirus HKU1 PCR Not Detected (NotDetected); Coronavirus NL63 PCR DETECTED (NotDetected); Coronavirus OC43PCR Not Detected (NotDetected); Human Metapneumovirus PCR Not Detected (NotDetected); Influenza A PCR Not Detected (NotDetected); Influenza B PCR Not Detected (NotDetected); Mycoplasma pneumoniae PCR Not Detected (NotDetected); Parainfluenza Virus 1 PCR Not Detected (NotDetected); Parainfluenza Virus 2 PCR Not Detected (NotDetected); Parainfluenza Virus 3 PCR Not Detected (NotDetected); Parainfluenza Virus 4 PCR Not Detected (NotDetected); Respiratory Syncytial VirusPCR Not Detected (NotDetected); Rhinovirus/Enterovirus PCR Not Detected (NotDetected)
--- NOTE | 2024-06-24 18:10 | Psychiatric Progress Note ---
Date of Service June 24, 2024 Impression / Recommendations Impression JESSICA PYLE is a 24-year-old woman who currently lives in [place] alone, has a history of 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 Diagnostically consistent with unspecified depression and unspecified psychosis with differential including MDD with psychotic features vs BPAD type II current depressive episode with psychotic features vs primary psychotic disorder vs psychosis/mood changes 2/2 substance use (though unlikely as she denies any substance use in last three months and UDS negative). A: Ongoing depression and anxiety but denies SI and no evidence for psychosis nor paranoia today. She is still struggling with sleep (tallied as 8.5 hours but she reports multiple awakenings) and some fatigue in the AM. She'd like to reduce clonidine to HS only and consents to trial of trazodone for insomnia/depression. reviewed side effects including but not limited to: sedation, increased appetite, weight gain. MNPR-significant social anxiety, recent paranoia Overall, I spent a total of 35 minutes on this case including meeting with the patient, reviewing the chart, nursing report, multidisciplinary team meeting, orders, and documentation. (1) Suicidal ideation: (2) Psychotic disorder: (3) Depression with suicidal ideation: (4) Paranoia: (5) Hallucinations: (6) Post traumatic stress disorder (PTSD): Plan 06/24/24: Continue current medication at current dose. Continue current level of observation. COVID PCR -ve. SM on 06/26/24. 06/23/2024: -Decrease clonidine to 0.1mg HS -Start trazodone 50mg HS 06/22/2024: Continue current medications and tx plan 06/21/2024: -Increased Latuda 40mg daily with dinner tonight 06/20/2024: -Increase Latuda to 40mg daily with dinner tomorrow -Start Vit D 06/19/2024: The patient was admitted to the [facility] ([facility] mental health unit) on q15 min checks (behavioral with suicide precautions) for safety. The patient will participate in group, recreational, and milieu therapies and will be offered additional individual and family sessions as clinically appropriate. -Medications: * Start Latuda 20mg daily with dinner * C/w Fluoxetine 80mg daily * C/w clonidine 0.1mg BID * C/w prazosin 2mg HS -Labwork: * Fasting lipid panel, HBA1c, Vit D and Vit B12 in AM Inventory Assets Strengths: supportive relationships, willing to get treatment Needs: safety and stabilization, medication adjustment, additional coping skills, increased outpatient services Suicide Risk Level Suicide Risk Level: Moderate (q15 min suicide checks) (depression with psychosis and SI but denies command AH, SI lessening in the hospital and paranoia lessening, feels safe here and feels able to ask for support if needed) Risk Factors Assessment Male: No : Yes Do You Have Access To A Gun?: No Health Problems: No Mental Health Diagnoses: Yes Substance Use Disorders: Yes (hx of) Previous Attempt: Yes Family History of Suicide: Yes (paternal grandmother) Previous Psychiatric Hospitalization: Yes Hopelessness: Yes Protective Factors Assessment Employed: Yes () Stable Relationships: Yes Good Rapport with Provider: Yes Interval History Identifying Information JESSICA PYLE is a 24-year-old woman who currently lives in [place] alone, has a history of 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 Chief Complaint "[]". Review of Systems Sleep Information Total Hours of Sleep: 7.25 Meal Information Percent Meal Consumed - Breakfast: 80 Percent Meal Consumed - Lunch: 100 Percent Meal Consumed - Dinner: 100 Subjective Subjective Patient was seen & assessed and interval progress reviewed with nursing and social work. She was observed engaging in treatment process; attended groups, interacted with staff and peers. Paranoia is improving, not responding to AH. She remains guarded and internally preoccupied but attended groups and was observed interacting with staff and peers. planned for Wednesday at 3.30pm with a friend or a machine adjuster leader case trim who has visited her on the unit. Today, she reports a sore throat, fatigue. Also has a runny nose, feels congested and has a bit of a cough. This all started last night. She woke up multiple times last night, first at 12.30am - not sure what woke her up. COVID PCR -ve. Physical Exam Psychiatric Orientation: alert and oriented x 3 Apperance: appropriately dressed and appropriately groomed (Internally preoccupied. ) Eye Contact: good eye contact and + fair eye contact Motor Behavior: no abnormal motor movements Speech: + abnormal rate/rhythm/volume of speech (soft, slow) Affect: + depressed affect, + anxious affect and + flat affect Mood: + depressed mood and + anxious mood Thought Process: goal directed thought process and + concrete thought process Thought Content: + paranoid and reality based without delusions Suicidal Thoughts: denies suicidal thoughts (intermittent, lessening), denies suicidal plan (none for hospital) and denies suicidal intent Homicidal Thoughts: denies homicidal thoughts Hallucinations: no auditory hallucinations and no visual hallucinations Cognition: recent memory grossly intact, remote memory grossly intact, attention grossly intact and language grossly intact Estimated Intelligence: consistent with education level Insight: + fair insight Judgment: + fair judgement Vital Signs (Past 24 Hours) Last Vital Signs Temp 36.5 C 06/24/24 06:30 Pulse 78 06/24/24 06:30 Resp 16 06/24/24 06:30 BP 99/68 L 06/24/24 06:30 Pulse Ox 98 06/23/24 20:38 O2 Del Method Room Air 06/23/24 20:38 Results & Data ([facility]) Laboratory Results Laboratory Results - last 24 hr 06/24/24 06/24/24 14:25 17:20 Adenovirus (PCR) Not Detected B. pertussis DNA (PCR) Not Detected B.parapertussis DNA PCR Not Detected C. pneumoniae DNA (PCR) Not Detected Coronavirus OC43 (PCR) Not Detected Coronavirus HKU1 (PCR) Not Detected Coronavirus 229E (PCR) Not Detected SARS-CoV-2 (PCR) Not Detected NEGATIVE Coronavirus NL63 (PCR) DETECTED A Human Metapneumovir PCR Not Detected Influenza Type A (PCR) Not Detected Influenza Type B (PCR) Not Detected M. pneumoniae (PCR) Not Detected Parainfluenza 1 (PCR) Not Detected Parainfluenza 2 (PCR) Not Detected Parainfluenza 3 (PCR) Not Detected Parainfluenza 4 (PCR) Not Detected RSV (PCR) Not Detected Entero/Rhino (PCR) Not Detected Current Inpatient Medications Current Inpatient Medications: Current Inpatient Medications Acetaminophen (Acetaminophen 325 Mg Tab) 650 mg PO Q4H PRN PRN Reason: Headache or Minor Fever Stop: 07/18/24 20:40 Last Admin: 06/24/24 09:28 Dose: 650 mg Al Hydrox/Mg Hydrox/Simethicone (Aluminum/Magnesium Susp 30 Ml Udc) 30 ml PO Q4H PRN PRN Reason: GI Upset Stop: 07/18/24 20:40 Bismuth Subsalicylate (Bismuth Subsalicylate 262 Mg Chew) 2 tab PO Q30M PRN PRN Reason: Loose Stool/Diarrhea Stop: 07/18/24 20:40 Clonidine HCl (Clonidine Hcl 0.1 Mg Tab) 0.1 mg PO HS ELIZABETH Stop: 07/23/24 21:59 Last Admin: 06/23/24 21:24 Dose: 0.1 mg Fluoxetine HCl (Fluoxetine Hcl 20 Mg Cap) 80 mg PO HS ELIZABETH Stop: 07/18/24 21:59 Last Admin: 06/23/24 21:25 Dose: 80 mg Hydroxyzine HCl (Hydroxyzine Hcl 25 Mg Tab) 50 mg PO HSZ PRN PRN Reason: Insomnia Stop: 07/18/24 20:40 Last Admin: 06/18/24 21:33 Dose: 50 mg Hydroxyzine HCl (Hydroxyzine Hcl 25 Mg Tab) 25 mg PO Q4H PRN PRN Reason: Anxiety Stop: 07/18/24 20:40 Last Admin: 06/20/24 12:00 Dose: 25 mg Hydroxyzine HCl (Hydroxyzine Hcl 25 Mg Tab) 50 mg PO PM ELIZABETH Stop: 07/19/24 20:59 Last Admin: 06/23/24 21:24 Dose: 50 mg Lurasidone HCl (Lurasidone Hcl 20 Mg Tab) 40 mg PO DAILYBD ELIZABETH Stop: 07/21/24 17:14 Last Admin: 06/24/24 17:25 Dose: 40 mg Magnesium Hydroxide (Magnesium Hydroxide Susp 30 Ml Udc) 30 ml PO DAILY PRN PRN Reason: Constipation Stop: 07/18/24 20:40 Miscellaneous (Remove Nicoderm Patch) 1 each N/A DAILY@0859 [facility] Stop: 07/19/24 08:58 Last Admin: 06/24/24 09:34 Dose: 1 each Nicotine (Nicotine 21 Mg/24 Hr Tdsy) 1 patch TD QAM ELIZABETH Stop: 07/19/24 08:59 Last Admin: 06/24/24 09:33 Dose: 1 patch Nicotine Polacrilex (Nicotine Polacrilex 2 Mg Gum) 2 piece MT PRN PRN PRN Reason: Nicotine Withdrawal Symptoms Stop: 07/18/24 20:40 Last Admin: 06/24/24 17:42 Dose: 2 piece Olanzapine (Olanzapine 2.5 Mg Tab) 2.5 mg PO BID PRN PRN Reason: Psychosis/Agitation Stop: 07/18/24 20:59 Prazosin HCl (Prazosin Hcl 1 Mg Cap) 2 mg PO HS ELIZABETH Stop: 07/18/24 21:59 Last Admin: 06/23/24 21:24 Dose: 2 mg Sodium Chloride (Sodium Chloride 0.65% Na Soln 45 Ml ([place])) 1 - 2 sprays NA PRN PRN PRN Reason: Nasal Dryness/Congestion Stop: 07/18/24 20:40 Trazodone HCl (Trazodone Hcl 50 Mg Tab) 50 mg PO HS ELIZABETH Stop: 07/23/24 21:59 Last Admin: 06/23/24 21:26 Dose: 50 mg Vitamin D (Cholecalciferol 25 Mcg (1000 Units) Tab) 25 mcg PO QAM ELIZABETH Stop: 07/21/24 08:59 Last Admin: 06/24/24 09:28 Dose: 25 mcg Mental Health & Subst Abuse Tx Psychiatrist Name of Psychiatrist: Lauryn He Psychiatrist's Date Of Appointment With Psychiatric Provider: 07/03/24 Time of Appointment with Psychiatrist: 1:40PM Therapist Name of Therapist: Kimmy Therapist's Date of Therapist Appointment: 06/29/24 Time of Therapist Appointment: 10AM Therapy Appointment Comment: In Person - [address] [facility] [place] [address] Director Of Residential Services Name of Director Of Residential Services: [facility] Phone Number for Director Of Residential Services: [phone] Date of Appointment with Director Of Residential Services: 06/26/24 Time of Appointment with Director Of Residential Services: 3:30PM Case Management Appointment Comment: CM will meet with patient on the unit Post Discharge Appointments Primary Care Physician Name Of Family Doctor/PCP: Jose Antonio Gross Stock Sheets Cleaner Inspector Name of Stock Sheets Cleaner Inspector: [facility] (Gallery Manager) - [place] Phone Number of Stock Sheets Cleaner Inspector: [phone] Stock Sheets Cleaner Inspector Appointment Comment: cancelled appt on 06/22/24, RS will call to reschedule appt Contact Information Discharge Discharge Address: [address] [place] [address] Milind CROWELL [id number]
[2024-06-24] MEDS ORDERED: COUGH DROP (SUGAR FREE) LOZ 24 LOZ/1 BOX BUCCAL PRN (18:20)
[2024-06-25 06:28] VITALS: RESP 16
--- NOTE | 2024-06-25 08:36 | Psychiatric Progress Note ---
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 Diagnostically consistent with unspecified depression and unspecified psychosis with differential including MDD with psychotic features vs BPAD type II current depressive episode with psychotic features vs primary psychotic disorder vs psychosis/mood changes 2/2 substance use (though unlikely as she denies any substance use in last three months and UDS negative). A: Ongoing depression and anxiety but denies SI and no evidence for psychosis nor paranoia today. She is still struggling with sleep and some fatigue in the AM. MNPR-significant social anxiety, recent paranoia Overall, I spent a total of 35 minutes on this case including meeting with the patient, reviewing the chart, nursing report, multidisciplinary team meeting, orders, and documentation. (1) Suicidal ideation: (2) Psychotic disorder: (3) Depression with suicidal ideation: (4) Paranoia: (5) Hallucinations: (6) Post traumatic stress disorder (PTSD): Plan 06/25/24: Continue current medication at current dose. For insomnia, options include a trial of additional prns (e.g. trazodone 25mg ) if current medication is ineffective. May d/c Clonidine if BP remains low. SM tomorrow. 06/24/24: Continue current medication at current dose. Continue current level of observation. COVID PCR -ve. SM on 06/26/24. 06/23/2024: -Decrease clonidine to 0.1mg HS -Start trazodone 50mg HS 06/22/2024: Continue current medications and tx plan 06/21/2024: -Increased Latuda 40mg daily with dinner tonight 06/20/2024: -Increase Latuda to 40mg daily with dinner tomorrow -Start Vit D 06/19/2024: The patient was admitted to the [facility] ([facility] mental health unit) on q15 min checks (behavioral with suicide precautions) for safety. The patient will participate in group, recreational, and milieu therapies and will be offered additional individual and family sessions as clinically appropriate. -Medications: * Start Latuda 20mg daily with dinner * C/w Fluoxetine 80mg daily * C/w clonidine 0.1mg BID * C/w prazosin 2mg HS -Labwork: * Fasting lipid panel, HBA1c, Vit D and Vit B12 in AM Inventory Assets Strengths: supportive relationships, willing to get treatment Needs: safety and stabilization, medication adjustment, additional coping skills, increased outpatient services Suicide Risk Level Suicide Risk Level: Moderate (q15 min suicide checks) (depression with psychosis and SI but denies command AH, SI lessening in the hospital and paranoia lessening, feels safe here and feels able to ask for support if needed) Risk Factors Assessment Male: No : Yes Do You Have Access To A Gun?: No Health Problems: No Mental Health Diagnoses: Yes Substance Use Disorders: Yes (hx of) Previous Attempt: Yes Family History of Suicide: Yes (paternal grandmother) Previous Psychiatric Hospitalization: Yes Hopelessness: Yes Protective Factors Assessment Employed: Yes () Stable Relationships: Yes Good Rapport with Provider: Yes Interval History Identifying Information JESSICA PYLE is a 24-year-old woman who currently lives in [place] alone, has a history of 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 Chief Complaint "[]". Review of Systems Sleep Information Total Hours of Sleep: 6.5 Meal Information Percent Meal Consumed - Breakfast: 80 Percent Meal Consumed - Lunch: 100 Percent Meal Consumed - Dinner: 100 Subjective Subjective Patient was seen & assessed and interval progress reviewed with [nursing and social work] Reported cold symptoms yesterday and had an episode of emesis after dinner. BP was 98/63 last night, back up to 103/72 this am. Clonidine was held for this reason. She had trouble sleeping last night and woke up feeling "defeated" due to not feeling well physically She states she is feeling somewhat better today in terms of mood and energy. She denied any paranoia. Thoughts are a little foggy. Brighter and more interactive today. She denied AH although she did hear a whisper that sounded like her mom's voice last night. 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 She identifies her father, best friend and romantic partner as her franco supports. Describes her relationship with mom as strained. SM scheduled for tomorrow. Physical Exam Psychiatric Orientation: alert and oriented x 3 Apperance: appropriately dressed and appropriately groomed Eye Contact: good eye contact and + fair eye contact Motor Behavior: no abnormal motor movements Speech: normal rate/rhythm/volume of speech Affect: + depressed affect and + anxious affect Mood: + depressed mood and + anxious mood Thought Process: goal directed thought process Thought Content: reality based without delusions Suicidal Thoughts: denies suicidal thoughts, denies suicidal plan (none for hospital) and denies suicidal intent Homicidal Thoughts: denies homicidal thoughts Hallucinations: no auditory hallucinations and no visual hallucinations Cognition: recent memory grossly intact, remote memory grossly intact, attention grossly intact and language grossly intact Estimated Intelligence: consistent with education level Insight: + fair insight Judgment: + fair judgement Vital Signs (Past 24 Hours) Last Vital Signs Temp 36.8 C 06/25/24 06:26 Pulse 76 06/25/24 06:27 Resp 16 06/25/24 06:26 BP 103/72 06/25/24 06:27 Pulse Ox 98 06/23/24 20:38 O2 Del Method Room Air 06/23/24 20:38 Results & Data ([facility]) Laboratory Results Laboratory Results - last 24 hr 06/24/24 06/24/24 14:25 17:20 Adenovirus (PCR) Not Detected B. pertussis DNA (PCR) Not Detected B.parapertussis DNA PCR Not Detected C. pneumoniae DNA (PCR) Not Detected Coronavirus OC43 (PCR) Not Detected Coronavirus HKU1 (PCR) Not Detected Coronavirus 229E (PCR) Not Detected SARS-CoV-2 (PCR) Not Detected NEGATIVE Coronavirus NL63 (PCR) DETECTED A Human Metapneumovir PCR Not Detected Influenza Type A (PCR) Not Detected Influenza Type B (PCR) Not Detected M. pneumoniae (PCR) Not Detected Parainfluenza 1 (PCR) Not Detected Parainfluenza 2 (PCR) Not Detected Parainfluenza 3 (PCR) Not Detected Parainfluenza 4 (PCR) Not Detected RSV (PCR) Not Detected Entero/Rhino (PCR) Not Detected Current Inpatient Medications Current Inpatient Medications: Current Inpatient Medications Acetaminophen (Acetaminophen 325 Mg Tab) 650 mg PO Q4H PRN PRN Reason: Headache or Minor Fever Stop: 07/18/24 20:40 Last Admin: 06/25/24 07:32 Dose: 650 mg Al Hydrox/Mg Hydrox/Simethicone (Aluminum/Magnesium Susp 30 Ml Udc) 30 ml PO Q4H PRN PRN Reason: GI Upset Stop: 07/18/24 20:40 Bismuth Subsalicylate (Bismuth Subsalicylate 262 Mg Chew) 2 tab PO Q30M PRN PRN Reason: Loose Stool/Diarrhea Stop: 07/18/24 20:40 Clonidine HCl (Clonidine Hcl 0.1 Mg Tab) 0.1 mg PO HS [facility] Stop: 07/23/24 21:59 Last Admin: 06/24/24 21:34 Dose: Not Given Fluoxetine HCl (Fluoxetine Hcl 20 Mg Cap) 80 mg PO HS [facility] Stop: 07/18/24 21:59 Last Admin: 06/24/24 21:31 Dose: 80 mg Hydroxyzine HCl (Hydroxyzine Hcl 25 Mg Tab) 50 mg PO HSZ PRN PRN Reason: Insomnia Stop: 07/18/24 20:40 Last Admin: 06/18/24 21:33 Dose: 50 mg Hydroxyzine HCl (Hydroxyzine Hcl 25 Mg Tab) 25 mg PO Q4H PRN PRN Reason: Anxiety Stop: 07/18/24 20:40 Last Admin: 06/20/24 12:00 Dose: 25 mg Hydroxyzine HCl (Hydroxyzine Hcl 25 Mg Tab) 50 mg PO PM [facility] Stop: 07/19/24 20:59 Last Admin: 06/24/24 21:32 Dose: 50 mg Lurasidone HCl (Lurasidone Hcl 20 Mg Tab) 40 mg PO DAILYBD [facility] Stop: 07/21/24 17:14 Last Admin: 06/24/24 17:25 Dose: 40 mg Magnesium Hydroxide (Magnesium Hydroxide Susp 30 Ml Udc) 30 ml PO DAILY PRN PRN Reason: Constipation Stop: 07/18/24 20:40 Menthol (Cough Drop (Sugar Free) Vanna 24 Vanna/1 Box) 1 vanna BUCCAL Q2H PRN PRN Reason: Sore Throat Stop: 06/26/24 18:19 Miscellaneous (Remove Nicoderm Patch) 1 each N/A DAILY@0859 [facility] Stop: 07/19/24 08:58 Last Admin: 06/24/24 09:34 Dose: 1 each Nicotine (Nicotine 21 Mg/24 Hr Tdsy) 1 patch TD QAM [facility] Stop: 07/19/24 08:59 Last Admin: 06/24/24 09:33 Dose: 1 patch Nicotine Polacrilex (Nicotine Polacrilex 2 Mg Gum) 2 piece MT PRN PRN PRN Reason: Nicotine Withdrawal Symptoms Stop: 07/18/24 20:40 Last Admin: 06/24/24 17:42 Dose: 2 piece Olanzapine (Olanzapine 2.5 Mg Tab) 2.5 mg PO BID PRN PRN Reason: Psychosis/Agitation Stop: 07/18/24 20:59 Prazosin HCl (Prazosin Hcl 1 Mg Cap) 2 mg PO HS [facility] Stop: 07/18/24 21:59 Last Admin: 06/24/24 21:32 Dose: 2 mg Sodium Chloride (Sodium Chloride 0.65% Na Soln 45 Ml ([place])) 1 - 2 sprays NA PRN PRN PRN Reason: Nasal Dryness/Congestion Stop: 07/18/24 20:40 Trazodone HCl (Trazodone Hcl 50 Mg Tab) 50 mg PO [facility] Stop: 07/23/24 21:59 Last Admin: 06/24/24 21:31 Dose: 50 mg Vitamin D (Cholecalciferol 25 Mcg (1000 Units) Tab) 25 mcg PO QAM [facility] Stop: 07/21/24 08:59 Last Admin: 06/24/24 09:28 Dose: 25 mcg Mental Health & Subst Abuse Tx Psychiatrist Name of Psychiatrist: Lauryn He Psychiatrist's Date Of Appointment With Psychiatric Provider: 07/03/24 Time of Appointment with Psychiatrist: 1:40PM Therapist Name of Therapist: Kimmy Therapist's Date of Therapist Appointment: 06/29/24 Time of Therapist Appointment: 10AM Therapy Appointment Comment: In Person - [address] [place] [address] Social Work Supervisor [facility] Phone Number for [facility] Work Supervisor: [phone] Date of Appointment with Social Work Supervisor: 06/26/24 Time of Appointment with Social Work Supervisor: 3:30PM Case Management Appointment Comment: CM will meet with patient on the unit Post Discharge Appointments Primary Care Physician Name Of Family Doctor/PCP: Jose Antonio Gross Turn Laster Name of Turn Laster: [facility] ([employer]ican Food Cook) [facility] Phone Number of Turn Laster: [phone] Turn Laster Appointment Comment: cancelled appt on 06/22/24, RS will call to reschedule appt Contact Information Discharge Discharge Address: [address] [place] [address] [place] [address]
[2024-06-26 06:30] VITALS: BP 105/71; PULSE 97; TEMP 97.7
--- NOTE | 2024-06-26 08:28 | Psychiatric Progress Note ---
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 She was admitted on 06/18/24 19:27 on a 201 voluntary commitment for increased psychosis and SI with plan of crashing her car. Diagnosis: Likely MDD with psychotic features, PTSD. A: Mood is significantly improved. She denied AH and paranoia. Denied SI, intent or plan and is future oriented. 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 Her sleep is improved but still reports middle insomnia. Overall, I spent a total of 50 minutes on this case including meeting with the patient, reviewing the chart, nursing report, multidisciplinary team meeting, orders, and documentation. (1) Suicidal ideation: Safety plan completed. No SI, intent or plan at this time (2) Psychotic disorder: No evidence of psychosis at this time. (3) Depression with suicidal ideation: Mood is reported as good. Affect is brighter. (4) Paranoia: No longer in evidence. (5) Hallucinations: None. (6) Post traumatic stress disorder (PTSD): No flashbacks, nightmares. Plan 06/26/24: Discharge today after SM. Continue current medication. Ordered Trazodone 50mg qhs prn insomnia. Follow up at [facility] for med management. Has therapy appointment . Has completed Safety Plan. Educated on 988 Crisis line. Discussed creating a wrap plan. Educated on smoking cessation. 06/25/24: Continue current medication at current dose. For insomnia, options include a trial of additional prns (e.g. trazodone 25mg ) if current medication is ineffective. May d/c Clonidine if BP remains low. SM tomorrow. 06/24/24: Continue current medication at current dose. Continue current level of observation. COVID PCR -ve. SM on 06/26/24. 06/23/2024: -Decrease clonidine to 0.1mg HS -Start trazodone 50mg HS 06/22/2024: Continue current medications and tx plan 06/21/2024: -Increased Latuda 40mg daily with dinner tonight 06/20/2024: -Increase Latuda to 40mg daily with dinner tomorrow -Start Vit D 06/19/2024: The patient was admitted to the [facility] ([facility]) on q15 min checks (behavioral with suicide precautions) for safety. The patient will participate in group, recreational, and milieu therapies and will be offered additional individual and family sessions as clinically appropriate. -Medications: * Start Latuda 20mg daily with dinner * C/w Fluoxetine 80mg daily * C/w clonidine 0.1mg BID * C/w prazosin 2mg HS -Labwork: * Fasting lipid panel, HBA1c, Vit D and Vit B12 in AM Inventory Assets Strengths: supportive relationships, willing to get treatment Needs: safety and stabilization, medication adjustment, additional coping skills, increased outpatient services Suicide Risk Level Suicide Risk Level: Moderate (q15 min suicide checks) (depression with psychosis and SI but denies command AH, SI lessening in the hospital and paranoia lessening, feels safe here and feels able to ask for support if needed) Risk Factors Assessment Male: No : Yes Do You Have Access To A Gun?: No Health Problems: No Mental Health Diagnoses: Yes Substance Use Disorders: Yes (hx of) Previous Attempt: Yes Family History of Suicide: Yes (paternal grandmother) Previous Psychiatric Hospitalization: Yes Hopelessness: Yes Protective Factors Assessment Employed: Yes () Stable Relationships: Yes Good Rapport with Provider: Yes Interval History Identifying Information JESSICA PYLE is a 24-year-old woman who currently lives in [place] alone, has a history of 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 Chief Complaint "[]". Review of Systems Sleep Information Total Hours of Sleep: 8.75 Meal Information Percent Meal Consumed - Breakfast: 80 Percent Meal Consumed - Lunch: 75 Percent Meal Consumed - Dinner: 80 Subjective Subjective Patient was seen & assessed and interval progress reviewed with [treatment team] [nursing and social work] No hallucinations for the past 24 hours. Prior to that, no AH since before admission. Her mood is significantly improved. She slept 9 hours, still a bit achy but doing well. No further bouts of emesis. BP is stable. WA is 97.Observed to be engaged, interactive. Took Clonidine, Prazosin and Trazodone last night with no difficulty. BP has been stable. She does not take Trazodone at home and is willing to take it prn. She had positive meetings with her grandmother and her best friend. Has a support meeting at 3pm today and requests discharge today. Plans to attend [facility] for med management and [facility] for counseling. She will return to her own home, with support from her best friend. Also has some support from her grandmother. She has completed a safety plan and was able to list important elements. Discussed smoking cessation and educated patient on a WRAP plan. Physical Exam Psychiatric Orientation: alert and oriented x 3 Apperance: appropriately dressed and appropriately groomed Eye Contact: good eye contact Motor Behavior: no abnormal motor movements Speech: normal rate/rhythm/volume of speech Affect: + anxious affect and + blunted affect Thought Process: goal directed thought process, linear/logical thought process and clear/coherent thought process Thought Content: reality based without delusions Suicidal Thoughts: denies suicidal thoughts, denies suicidal plan (none for hospital) and denies suicidal intent Homicidal Thoughts: denies homicidal thoughts Hallucinations: no auditory hallucinations and no visual hallucinations Cognition: recent memory grossly intact, remote memory grossly intact, attention grossly intact and language grossly intact Estimated Intelligence: consistent with education level Insight: good insight Judgment: good judgement Vital Signs (Past 24 Hours) Last Vital Signs Temp 36.5 C 06/26/24 06:28 Pulse 97 H 06/26/24 06:29 Resp 16 06/26/24 06:28 BP 105/71 06/26/24 06:29 Pulse Ox 98 06/23/24 20:38 O2 Del Method Room Air 06/23/24 20:38 Results & Data ([facility]) Current Inpatient Medications Current Inpatient Medications: Current Inpatient Medications Acetaminophen (Acetaminophen 325 Mg Tab) 650 mg PO Q4H PRN PRN Reason: Headache or Minor Fever Stop: 07/18/24 20:40 Last Admin: 06/25/24 20:39 Dose: 650 mg Al Hydrox/Mg Hydrox/Simethicone (Aluminum/Magnesium Susp 30 Ml Udc) 30 ml PO Q4H PRN PRN Reason: GI Upset Stop: 07/18/24 20:40 Bismuth Subsalicylate (Bismuth Subsalicylate 262 Mg Chew) 2 tab PO Q30M PRN PRN Reason: Loose Stool/Diarrhea Stop: 07/18/24 20:40 Clonidine HCl (Clonidine Hcl 0.1 Mg Tab) 0.1 mg PO HS [facility] Stop: 07/23/24 21:59 Last Admin: 06/25/24 20:37 Dose: 0.1 mg Fluoxetine HCl (Fluoxetine Hcl 20 Mg Cap) 80 mg PO HS [facility] Stop: 07/18/24 21:59 Last Admin: 06/25/24 20:39 Dose: 80 mg Hydroxyzine HCl (Hydroxyzine Hcl 25 Mg Tab) 50 mg PO HSZ PRN PRN Reason: Insomnia Stop: 07/18/24 20:40 Last Admin: 06/18/24 21:33 Dose: 50 mg Hydroxyzine HCl (Hydroxyzine Hcl 25 Mg Tab) 25 mg PO Q4H PRN PRN Reason: Anxiety Stop: 07/18/24 20:40 Last Admin: 06/20/24 12:00 Dose: 25 mg Hydroxyzine HCl (Hydroxyzine Hcl 25 Mg Tab) 50 mg PO PM [facility] Stop: 07/19/24 20:59 Last Admin: 06/25/24 20:38 Dose: 50 mg Lurasidone HCl (Lurasidone Hcl 20 Mg Tab) 40 mg PO DAILYBD [facility] Stop: 07/21/24 17:14 Last Admin: 06/25/24 17:16 Dose: 40 mg Magnesium Hydroxide (Magnesium Hydroxide Susp 30 Ml Udc) 30 ml PO DAILY PRN PRN Reason: Constipation Stop: 07/18/24 20:40 Menthol (Cough Drop (Sugar Free) Vanna 24 Vanna/1 Box) 1 vanna BUCCAL Q2H PRN PRN Reason: Sore Throat Stop: 06/26/24 18:19 Miscellaneous (Remove Nicoderm Patch) 1 each N/A DAILY@0859 [facility] Stop: 07/19/24 08:58 Last Admin: 06/25/24 09:13 Dose: 1 each Nicotine (Nicotine 21 Mg/24 Hr Tdsy) 1 patch TD QAM [facility] Stop: 07/19/24 08:59 Last Admin: 06/25/24 09:13 Dose: 1 patch Nicotine Polacrilex (Nicotine Polacrilex 2 Mg Gum) 2 piece MT PRN PRN PRN Reason: Nicotine Withdrawal Symptoms Stop: 07/18/24 20:40 Last Admin: 06/25/24 14:11 Dose: 2 piece Olanzapine (Olanzapine 2.5 Mg Tab) 2.5 mg PO BID PRN PRN Reason: Psychosis/Agitation Stop: 07/18/24 20:59 Prazosin HCl (Prazosin Hcl 1 Mg Cap) 2 mg PO HS [facility] Stop: 07/18/24 21:59 Last Admin: 06/25/24 20:38 Dose: 2 mg Sodium Chloride (Sodium Chloride 0.65% Na Soln 45 Ml ([place])) 1 - 2 sprays NA PRN PRN PRN Reason: Nasal Dryness/Congestion Stop: 07/18/24 20:40 Trazodone HCl (Trazodone Hcl 50 Mg Tab) 50 mg PO HS [facility] Stop: 07/23/24 21:59 Last Admin: 06/25/24 20:37 Dose: 50 mg Vitamin D (Cholecalciferol 25 Mcg (1000 Units) Tab) 25 mcg PO QAM [facility] Stop: 07/21/24 08:59 Last Admin: 06/25/24 09:13 Dose: 25 mcg Mental Health & Subst Abuse Tx Psychiatrist Name of Psychiatrist: Lauryn He Psychiatrist's Date Of Appointment With Psychiatric Provider: 07/03/24 Time of Appointment with Psychiatrist: 1:40PM Therapist Name of Therapist: Kimmy Therapist's Date of Therapist Appointment: 06/29/24 Time of Therapist Appointment: 10AM Therapy Appointment Comment: In Person - [address] [facility] [address] Snowmobile Mechanic [facility] Snow[facility] Phone Number for Snowmobile Mechanic: [phone] Date of Appointment with Snowmobile Mechanic: 06/26/24 Time of Appointment with Snowmobile Mechanic: 3:30PM Case Management Appointment Comment: CM will meet with patient on the unit Post Discharge Appointments Primary Care Physician Name Of Family Doctor/PCP: Jose Antonio Gross Sanitation Engineer Name of Sanitation Engineer: [employer] (Outside Sales Account Manager) Lai Maldonado Phone Number of Sanitation Engineer: [phone] Sanitation Engineer Appointment Comment: cancelled appt on 06/22/24, RS will call to reschedule appt Other #1: Name of Aftercare Appointment: Group therapy at [facility] Phone Number of Aftercare Appointment: [phone] Aftercare Appointment Comment: Mondays and at 5pm Contact Information Discharge Discharge Address: [address] [place] [address] [place] [address] (2) Psychotic disorder Psychosis type: unspecified psychosis type Qualified Code(s): F29 - Unspecified psychosis not due to a substance or known physiological condition
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
--- NOTE | 2024-06-26 12:17 | Psychiatric Progress Note ---
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 Diagnostically consistent with unspecified depression and unspecified psychosis with differential including MDD with psychotic features vs BPAD type II current depressive episode with psychotic features vs primary psychotic disorder vs psychosis/mood changes 2/2 substance use (though unlikely as she denies any substance use in last three months and UDS negative). A: Ongoing depression and anxiety but denies SI and no evidence for psychosis nor paranoia today. She is still struggling with sleep (tallied as 8.5 hours but she reports multiple awakenings) and some fatigue in the AM. She'd like to reduce clonidine to HS only and consents to trial of trazodone for insomnia/depression. reviewed side effects including but not limited to: sedation, increased appetite, weight gain. MNPR-significant social anxiety, recent paranoia Overall, I spent a total of 35 minutes on this case including meeting with the patient, reviewing the chart, nursing report, multidisciplinary team meeting, orders, and documentation. (1) Suicidal ideation: Safety plan completed. No SI, intent or plan at this time (2) Psychotic disorder: No evidence of psychosis at this time. (3) Depression with suicidal ideation: Mood is reported as good. Affect is brighter. (4) Paranoia: No longer in evidence. (5) Hallucinations: None. (6) Post traumatic stress disorder (PTSD): No flashbacks, nightmares. Plan 06/26/24: Discharge today after SM. Continue current medication. Ordered Trazodone 50mg qhs prn insomnia. Follow up at [facility] for med management. Has therapy appointment . Has completed Safety Plan. Educated on 9[address] Crisis line. Discussed creating a wrap plan. Educated on smoking cessation. 06/25/24: Continue current medication at current dose. For insomnia, options include a trial of additional prns (e.g. trazodone 25mg ) if current medication is ineffective. May d/c Clonidine if BP remains low. SM tomorrow. 1/11/25: Continue current medication at current dose. Continue current level of observation. COVID PCR -ve. SM on 06/26/24. 06/23/2024: -Decrease clonidine to 0.1mg HS -Start trazodone 50mg HS 06/22/2024: Continue current medications and tx plan 06/21/2024: -Increased Latuda 40mg daily with dinner tonight 06/20/2024: -Increase Latuda to 40mg daily with dinner tomorrow -Start Vit D 06/19/2024: The patient was admitted to the [facility] ([facility]) on q15 min checks (behavioral with suicide precautions) for safety. The patient will participate in group, recreational, and milieu therapies and will be offered additional individual and family sessions as clinically appropriate. -Medications: * Start Latuda 20mg daily with dinner * C/w Fluoxetine 80mg daily * C/w clonidine 0.1mg BID * C/w prazosin 2mg HS -Labwork: * Fasting lipid panel, HBA1c, Vit D and Vit B12 in AM Inventory Assets Strengths: supportive relationships, willing to get treatment Needs: safety and stabilization, medication adjustment, additional coping skills, increased outpatient services Suicide Risk Level Suicide Risk Level: Moderate (q15 min suicide checks) (depression with psychosis and SI but denies command AH, SI lessening in the hospital and paranoia lessening, feels safe here and feels able to ask for support if needed) Risk Factors Assessment Male: No : Yes Do You Have Access To A Gun?: No Health Problems: No Mental Health Diagnoses: Yes Substance Use Disorders: Yes (hx of) Previous Attempt: Yes Family History of Suicide: Yes (paternal grandmother) Previous Psychiatric Hospitalization: Yes Hopelessness: Yes Protective Factors Assessment Employed: Yes ([employer]) Stable Relationships: Yes Good Rapport with Provider: Yes Interval History Identifying Information JESSICA PYLE is a 24-year-old woman who currently lives in [place] alone, has a history of 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 Chief Complaint "[]". Review of Systems Sleep Information Total Hours of Sleep: 7.25 Meal Information Percent Meal Consumed - Breakfast: 80 Percent Meal Consumed - Lunch: 100 Percent Meal Consumed - Dinner: 100 Subjective Subjective Patient was seen & assessed and interval progress reviewed with [treatment team] [nursing and social work] Physical Exam Psychiatric Orientation: alert and oriented x 3 Apperance: appropriately dressed and appropriately groomed Eye Contact: good eye contact and + fair eye contact Motor Behavior: no abnormal motor movements Speech: normal rate/rhythm/volume of speech Affect: + depressed affect, + anxious affect, + flat affect and + blunted affect Mood: + depressed mood and + anxious mood Thought Process: goal directed thought process, linear/logical thought process, clear/coherent thought process and + concrete thought process Thought Content: + paranoid, reality based without delusions and + delusions Suicidal Thoughts: denies suicidal thoughts, denies suicidal plan (none for hospital) and denies suicidal intent Homicidal Thoughts: denies homicidal thoughts Hallucinations: no auditory hallucinations and no visual hallucinations Cognition: recent memory grossly intact, remote memory grossly intact, attention grossly intact and language grossly intact Estimated Intelligence: consistent with education level Insight: good insight and + fair insight Judgment: good judgement and + fair judgement Vital Signs (Past 24 Hours) Last Vital Signs Temp 36.5 C 06/24/24 06:30 Pulse 78 06/24/24 06:30 Resp 16 06/24/24 06:30 BP 99/68 L 06/24/24 06:30 Pulse Ox 98 06/23/24 20:38 O2 Del Method Room Air 06/23/24 20:38 Results & Data ([facility]) Laboratory Results Laboratory Results - last 24 hr 06/24/24 06/24/24 14:25 17:20 Adenovirus (PCR) Not Detected B. pertussis DNA (PCR) Not Detected B.parapertussis DNA PCR Not Detected C. pneumoniae DNA (PCR) Not Detected Coronavirus OC43 (PCR) Not Detected Coronavirus HKU1 (PCR) Not Detected Coronavirus 229E (PCR) Not Detected SARS-CoV-2 (PCR) Not Detected NEGATIVE Coronavirus NL63 (PCR) DETECTED A Human Metapneumovir PCR Not Detected Influenza Type A (PCR) Not Detected Influenza Type B (PCR) Not Detected M. pneumoniae (PCR) Not Detected Parainfluenza 1 (PCR) Not Detected Parainfluenza 2 (PCR) Not Detected Parainfluenza 3 (PCR) Not Detected Parainfluenza 4 (PCR) Not Detected RSV (PCR) Not Detected Entero/Rhino (PCR) Not Detected Current Inpatient Medications Current Inpatient Medications: Current Inpatient Medications Acetaminophen (Acetaminophen 325 Mg Tab) 650 mg PO Q4H PRN PRN Reason: Headache or Minor Fever Stop: 07/18/24 20:40 Last Admin: 06/24/24 09:28 Dose: 650 mg Al Hydrox/Mg Hydrox/Simethicone (Aluminum/Magnesium Susp 30 Ml Udc) 30 ml PO Q4H PRN PRN Reason: GI Upset Stop: 07/18/24 20:40 Bismuth Subsalicylate (Bismuth Subsalicylate 262 Mg Chew) 2 tab PO Q30M PRN PRN Reason: Loose Stool/Diarrhea Stop: 07/18/24 20:40 Clonidine HCl (Clonidine Hcl 0.1 Mg Tab) 0.1 mg PO HS ELIZABETH Stop: 07/23/24 21:59 Last Admin: 06/23/24 21:24 Dose: 0.1 mg Fluoxetine HCl (Fluoxetine Hcl 20 Mg Cap) 80 mg PO HS ELIZABETH Stop: 07/18/24 21:59 Last Admin: 06/23/24 21:25 Dose: 80 mg Hydroxyzine HCl (Hydroxyzine Hcl 25 Mg Tab) 50 mg PO HSZ PRN PRN Reason: Insomnia Stop: 07/18/24 20:40 Last Admin: 06/18/24 21:33 Dose: 50 mg Hydroxyzine HCl (Hydroxyzine Hcl 25 Mg Tab) 25 mg PO Q4H PRN PRN Reason: Anxiety Stop: 07/18/24 20:40 Last Admin: 06/20/24 12:00 Dose: 25 mg Hydroxyzine HCl (Hydroxyzine Hcl 25 Mg Tab) 50 mg PO PM ELIZABETH Stop: 07/19/24 20:59 Last Admin: 06/23/24 21:24 Dose: 50 mg Lurasidone HCl (Lurasidone Hcl 20 Mg Tab) 40 mg PO DAILYBD ELIZABETH Stop: 07/21/24 17:14 Last Admin: 06/24/24 17:25 Dose: 40 mg Magnesium Hydroxide (Magnesium Hydroxide Susp 30 Ml Udc) 30 ml PO DAILY PRN PRN Reason: Constipation Stop: 07/18/24 20:40 Miscellaneous (Remove Nicoderm Patch) 1 each N/A DAILY@0859 [facility] Stop: 07/19/24 08:58 Last Admin: 06/24/24 09:34 Dose: 1 each Nicotine (Nicotine 21 Mg/24 Hr Tdsy) 1 patch TD QAM [facility] Stop: 07/19/24 08:59 Last Admin: 06/24/24 09:33 Dose: 1 patch Nicotine Polacrilex (Nicotine Polacrilex 2 Mg Gum) 2 piece MT PRN PRN PRN Reason: Nicotine Withdrawal Symptoms Stop: 07/18/24 20:40 Last Admin: 06/24/24 17:42 Dose: 2 piece Olanzapine (Olanzapine 2.5 Mg Tab) 2.5 mg PO BID PRN PRN Reason: Psychosis/Agitation Stop: 07/18/24 20:59 Prazosin HCl (Prazosin Hcl 1 Mg Cap) 2 mg PO HS [facility] Stop: 07/18/24 21:59 Last Admin: 06/23/24 21:24 Dose: 2 mg Sodium Chloride (Sodium Chloride 0.65% Na Soln 45 Ml (New Site)) 1 - 2 sprays NA PRN PRN PRN Reason: Nasal Dryness/Congestion Stop: 07/18/24 20:40 Trazodone HCl (Trazodone Hcl 50 Mg Tab) 50 mg PO HS [facility] Stop: 07/23/24 21:59 Last Admin: 06/23/24 21:26 Dose: 50 mg Vitamin D (Cholecalciferol 25 Mcg (1000 Units) Tab) 25 mcg PO QAM ELIZABETH Stop: 07/21/24 08:59 Last Admin: 06/24/24 09:28 Dose: 25 mcg Mental Health & Subst Abuse Tx Psychiatrist Name of Psychiatrist: Lauryn He Psychiatrist's Date Of Appointment With Psychiatric Provider: 07/03/24 Time of Appointment with Psychiatrist: 1:40PM Therapist Name of Therapist: Kimmy Therapist's Date of Therapist Appointment: 06/29/24 Time of Therapist Appointment: 10AM Therapy Appointment Comment: In Person - [address] [place] [address] Wood Finisher Apprentice [facility] Phone Number for Wood Finisher Apprentice: [phone] Date of Appointment with Wood Finisher Apprentice: 06/26/24 Time of Appointment with Wood Finisher Apprentice: 3:30PM Case Management Appointment Comment: CM will meet with patient on the unit Post Discharge Appointments Primary Care Physician Name Of Family Doctor/PCP: Jose Antonio Gross Silk Washing Machine Operator Name of Silk Washing Machine Operator: [facility] ([facility]) [facility] Phone Number of Silk Washing Machine Operator: [phone] Silk Washing Machine Operator Appointment Comment: cancelled appt on 06/22/24, RS will call to reschedule appt Contact Information Discharge Discharge Address: [address] [place] [address] [place] [address] (2) Psychotic disorder Psychosis type: unspecified psychosis type Qualified Code(s): F29 - Unspecified psychosis not due to a substance or known physiological condition
== END 2024-06-26 15:50 | disposition home or self-care (01) | DRG 882 ==
LOC: ED 15:27 → 3S 19:27